=== PATIENT | female | born 1975 | race Caucasian/White ===

== ENCOUNTER 2016-06-24 23:26 | Emergency (ER) | payer MEDICAID ==
--- NOTE | 2016-06-25 00:06 | ERNOTE ---
<Wilder Bonner - Last Filed: 06/25/16 07:45> Psychological HPI - General Chief Complaint: Anxiety Source: patient Exam Limitations: no limitations - Immun/Allergies/Home Medications Allergies/Adverse Reactions: Allergies celecoxib [From Celebrex] Allergy (Intermediate, Verified 05/30/16 10:44) Hives ketorolac tromethamine [From Toradol] Allergy (Intermediate, Verified 05/30/16 10:44) Hives morphine Adverse Reaction (Intermediate, Verified 05/30/16 10:44) Itching Home Medications: HOME MEDICATIONS Gabapentin [Neurontin] 1,200 mg PO TID 03/22/14 [Last Taken 08/22/15 23:00] Ibuprofen [Motrin] 800 mg PO QID PRN 07/25/15 [Last Taken 01/24/16 19:00] Prazosin HCl 3 mg PO HS 01/03/16 [Last Taken Unknown] Duloxetine HCl [Cymbalta] 60 mg PO BID 04/10/16 [Last Taken Unknown] Amitriptyline HCl [Elavil] 25 mg PO HS 04/12/16 [Last Taken Unknown] QUEtiapine FUMARATE [Seroquel] 25 mg PO BID 06/24/16 [Last Taken Unknown] Quetiapine Fumarate [Seroquel] 50 mg PO HS 06/24/16 [Last Taken Unknown] oxyCODONE HCL [Oxycodone] 10 mg PO Q4H PRN 06/24/16 [Last Taken Unknown] Camano Carbonate [Camano Carbonate ER] 450 mg PO BID #14 tablet.er 06/25/16 [ Last Taken Unknown] Oxycodone HCl/Acetaminophen [Percocet 10-325 mg Tablet] 1 each PO BID #14 tablet 06/25/16 [Last Taken Unknown] Risperidone 2 mg PO DAILY #7 tablet 06/25/16 [Last Taken Unknown] - History of Present Illness Narrative: Pt has been feeling down for some time. She talked to her PCP and seroquel was added to her medications. She states this only made her more tired and less able to cope with the things in her life. Time Seen by Provider: 06/24/16 23:47 Arrived by: private car Onset/duration: gradual onset Intent: suicide - Pt states she has a number of different ways she has been thinking of that could end her life including using a gun and overdosing on medication, other - She states that the thought of dying brought her "pleasure and contentment" Review of Systems - Review of Systems Constitutional: Present: no symptoms reported EYE: Present: no symptoms reported ENT: Present: no symptoms reported Respiratory: Present: no symptoms reported Cardiology: Present: no symptoms reported Gastrointestinal/Abdominal: Present: no symptoms reported Genitourinary: Present: no symptoms reported Musculoskeletal: Present: back pain - chronic Skin: Present: no symptoms reported Neurological: Present: anxiety, depressed Endocrine: Present: no symptoms reported Hematologic/Lymphatic: Present: no symptoms reported Psych: Present: no symptoms reported - Patient's Past Medical History Patient History - Medical: Anxiety, Chronic Pain, Depression, Obesity, Other Patient History - Cardiac/Respiratory: Hypertension Patient History - Cancer: Breast Patient History - Surgical Procedures: Back Surgery, , D & C, Tubal Ligation, T & A - Family History Mother Family History - Medical: Diabetes Type 1 Family History - Cardiac/Respiratory: CVA/Stroke, Hypertension Father Family History - Medical: Diabetes Type 2 Family History - Cardiac/Respiratory: CVA/Stroke, Hypertension - Social History Living Situations: home Does anyone smoke in the home?: Yes Smoking Status: Current every day smoker Patient requests Smoking Cessation Consult: No Initiate information on Smoking Cessation: No Alcohol Use: rarely Drug Use: none Physical Exam - Physical Exam General Appearance: Present: wd/wn, alert, mild distress, crying - at times Eye Exam: Normal inspection: bilateral Ears, Nose, Throat: Present: normal ENT inspection, hearing grossly normal Neck: Present: normal inspection, nontender Respiratory: Present: no respiratory distress, normal breath sounds, no accessory muscle use, chest nontender, lungs clear Cardiovascular/Chest: Present: regular rate, rhythm, no murmur, normal peripheral pulses Gastrointestinal/Abdominal: Present: normal bowel sounds, nontender, nondistended, soft Back Exam: Present: no vertebral tenderness Extremity Exam: Present: normal inspection, non-tender, no edema, normal range of motion Neurological Exam: Present: alert, oriented, normal mood/affect, no motor/ sensory deficits Skin Exam: Present: normal color, warm/dry Lymphatic Exam: Present: no adenopathy ED Progress - Results and Orders Patient's Lab Results:: I have reviewed the patient's lab results. Results and Orders: Laboratory Tests 06/25/16 06/25/16 06/25/16 00:04 00:04 01:07 WBC 11.8 H Hgb 13.8 Hct 42.0 Plt Count 408 Sodium 139 Potassium 3.6 Chloride 100 Carbon Dioxide 23.9 L Anion Gap 18.7 H BUN 9 Creatinine 0.97 BUN/Creatinine Ratio 9.3 Random Glucose 96 Calcium 9.3 Total Bilirubin 0.4 AST 12 ALT 24 Alkaline Phosphatase 45 L Total Protein 7.9 Albumin 4.0 TSH 0.504 Urine Color Yellow Urine Appearance Clear Urine pH 8.5 Ur Specific [place] 1.010 Urine Protein 15 H Urine Glucose (UA) Negative Urine Ketones Negative Urine Blood Negative Urine Nitrate Negative Urine Bilirubin Negative Prot Sulfosalicylic Acd Negative Urine Urobilinogen Normal Ur Leukocyte Esterase Negative Urine RBC 0-5 Urine WBC 0-5 Ur Epithelial Cells 10-25 H Urine Bacteria None seen Urine Culture Comments No culture indicated Salicylates Less than 2.8 L Urine Opiates Screen Acetaminophen Less than 0.2 L Barbiturate Screen Ur Phencyclidine Scrn Urine Amphetamine U Benzodiazepines Scrn Urine Cocaine Screen Urine Marijuana (THC) Ethyl Alcohol Less than 3.0 06/25/16 01:07 WBC Hgb Hct Plt Count Sodium Potassium Chloride Carbon Dioxide Anion Gap BUN Creatinine BUN/Creatinine Ratio Random Glucose Calcium Total Bilirubin AST ALT Alkaline Phosphatase Total Protein Albumin TSH Urine Color Urine Appearance Urine pH Ur Specific [place] Urine Protein Urine Glucose (UA) Urine Ketones Urine Blood Urine Nitrate Urine Bilirubin Prot Sulfosalicylic Acd Urine Urobilinogen Ur Leukocyte Esterase Urine RBC Urine WBC Ur Epithelial Cells Urine Bacteria Urine Culture Comments Salicylates Urine Opiates Screen Negative Acetaminophen Barbiturate Screen Negative Ur Phencyclidine Scrn Negative Urine Amphetamine Negative U Benzodiazepines Scrn Negative Urine Cocaine Screen Negative Urine Marijuana (THC) Positive H Ethyl Alcohol - Vital Signs Patient's Vital Signs:: I have reviewed the patient's vital signs. Vital Signs: Vital Signs 06/24/16 23:34 Temperature 37.3 C Pulse Rate 112 H Respiratory 18 Rate Blood Pressure 158/113 O2 Sat by Pulse 98 Oximetry - Progress/Reassessment Chief Complaint: Anxiety Progress:: Unchanged Progress Note-Subjective: 06/25/16 02:29 told patient that Optimae was unavaliable and asked if she felt she needed inpatient treatment. she beleives she does. She asked if she could have her nightime medications, I agreed. gabapentin 1200mg, cymbalta 60 mg, ibuprofen 800 mg and percocet 5/325 06/25/16 07:[address] Daniel- Psychiatry and he agreed to evaluate the patient in the ED - Transfer of Care Physician Sign Out: Wilder Bonner Receiving Physician: Bob Mack Pending Results: Physician/consult arrival Expected Disposition: Discharge Departure Clinical Impression: Anxiety state, Suicidal ideation, Bipolar 1 disorder with moderate susanne, Borderline personality disorder, Chronic pain disorder Clinical Impression: (Ruled Out): Major depression - Departure Disposition: Home self-care Condition: Fair Instructions: Bipolar Disorder, Borderline Personality Disorder Referrals: [Primary Care Provider] - Prescriptions: Camano Carbonate [Camano Carbonate ER] 450 mg PO BID #14 tablet.er Oxycodone HCl/Acetaminophen [Percocet 10-325 mg Tablet] 1 each PO BID #14 tablet Risperidone 2 mg PO DAILY #7 tablet <Bob Mack - Last Filed: 06/25/16 13:25> ED Progress - Vital Signs Vital Signs: Vital Signs 06/25/16 06/25/16 07:12 11:59 Temperature 35.3 C L Pulse Rate 86 87 Respiratory 12 16 Rate Blood Pressure 168/96 140/82 O2 Sat by Pulse 98 98 Oximetry Plan - Plan Plan: Pt to stop her Seroquel, add Risperdone 2mg at supper and Camano Er 450 mg bid and Percocet 10mg bid, decrease Cymbalta ot 60 mg daily and stop the Amytriptyline. Pt was examined by Dr. Hernandez and all the above recommendations are at his behest. He feels comfortable with her going home and will see her as often as needed in his office.
[2016-06-25 00:29] LABS: Hemoglobin 13.8 gm/dL (12.5-16.0); Mean Cell Volume 93.8 fl (78-100); Mean Corpuscular Hemoglobin 30.8 pg (27-31); Mean Corpuscular Hgb Conc 32.9 g/dl (32-36); Mean Platelet Volume 10.4 fl (6.0-9.5); Neutrophil % 67.5 % (42-75.0); Platelet Count 408 K/mm3 (150-450); Red Blood Count 4.48 M/mm3 (4.2-5.4); Red Cell Distribution Width 14.4 % (11.5-14.0); White Blood Count 11.8 K/mm3 (4.0-10.5)
[2016-06-25 00:55] LABS: ALT 24 U/L (19-67); AST 12 U/L (0-48); Alkaline Phosphatase * 45 U/L (50-170); Anion Gap 18.7 mmol/L (6.8-13.8); BUN/Creatinine Ratio 9.3 (9.0-21.6); Bilirubin, Total 0.4 mg/dL (0.0-1.1); Blood Urea Nitrogen 9 mg/dL (3-23); Calcium * 9.3 mg/dL (7.9-10.9); Carbon Dioxide 23.9 mmol/L (24-32.6); Chloride 100 mmol/L (97-106); Glucose * 96 mg/dL (70-110); Potassium 3.6 mmol/L (3.4-4.6); Salicylate Less than 2.8 mg/dL (2.8-20.0); Sodium 139 mmol/L (132-142); TSH * 0.504 uIU/mL (0.358-3.74); Total Protein 7.9 gm/dL (6.2-8.2)
[2016-06-25 01:17] LABS: Urine Bilirubin Negative (NEGATIVE); Urine Blood Negative /ul (NEGATIVE); Urine Ketone Negative (NEGATIVE); Urine Nitrite Negative (NEGATIVE); Urine Protein 15 mg/dL (NEGATIVE); Urine Urobilinogen Normal (NORMAL); Urine pH 8.5 pH (5.0-7.0)
[2016-06-25 01:25] LABS: Cocaine Ur Negative (NEGATIVE); Urine Appearance Clear; Urine Bacteria None Seen; Urine Barbiturate Negative (NEGATIVE); Urine Benzodiazepines Negative (NEGATIVE); Urine Color Yellow; Urine Opiates Negative (NEGATIVE); Urine PCP Negative (NEGATIVE); Urine RBC 0-5 /hpf (0-5); Urine THC Positive (NEGATIVE); Urine WBC 0-5 /hpf (0-5)
[2016-06-25] MEDS ORDERED: GABAPENTIN 100 MG CAPSULE PO ONE (02:26)
[2016-06-25] MEDS ORDERED: IBUPROFEN 400 MG TABLET PO ONE (02:28)
[2016-06-25] MEDS ORDERED: IBUPROFEN 400 MG TABLET ONE (02:35)
[2016-06-25] MEDS ORDERED: GABAPENTIN 600 MG TABLET ONE (02:49)
[2016-06-25] MEDS ORDERED: oxyCODONE HCL/ACETAMINOPHEN 1 TAB TABLET PO ONE ×2 (03:03→13:38)
[2016-06-25] MEDS ORDERED: oxyCODONE HCL/ACETAMINOPHEN 1 TAB TABLET ONE ×2 (03:09→13:40)
[2016-06-25 12:00] VITALS: BP 140/82
== END 2016-06-25 13:42 | disposition home or self-care (01) ==
LOC: ER 23:26
DX: F41.1 Generalized anxiety disorder (principal); R45.851 Suicidal ideations; F31.9 Bipolar disorder, unspecified; F60.3 Borderline personality disorder; G89.4 Chronic pain syndrome; F17.210 Nicotine dependence, cigarettes, uncomplicated; Z85.3 Personal history of malignant neoplasm of breast
CPT/HCPCS: 36415; 80053; 81001; 84443; 85025; 99283; G0479; G0480; G0481

== ENCOUNTER 2016-07-23 15:31 | Emergency (ER) | payer MEDICAID ==
--- OUTSIDE RECORDS SUMMARY | 2016-07-23 15:50 | XMS REPORT | Continuity of Care Document ---
:1975 Author Organization [facility] ([facility]) Address [address] [place] [address] Phone [phone] Care Team Providers Name Role Phone Silvano Lemus Primary Care Provider [phone] Source Comments This disclosure is being made pursuant to the Care Everywhere program, applicable federal and state laws, and may not contain all informaitonavailable regarding this patient.[facility] ([facility]) Active Allergies and Adverse Reactions Allergen Noted Date Severity Reactions Comments Celecoxib 08/27/2012 Rash Ketorolac Tromethamine Urticaria (Hives) Current Medications Prescription Sig. Disp. Refills Start Date End Date Status DULoxetine 60 mg XR Take 60 mg by Active capsule mouth 2 times daily. traZODone 100 mg Take 100 mg by Active tablet mouth at bedtime. oxyCODONE 5 mg Take 1-2 tablets 20 tablet 0 06/01/2016 Active immediate release (5-10 mg total) by tablet mouth 4 times daily as needed for pain (if pain is not improved by Tylenol or Ibuprofen). gabapentin 400 mg Take 1,200 mg by Active capsule mouth 3 times daily. ibuprofen 800 mg Take 800 mg by Active tablet mouth every 8 hours as needed for Pain. Active Problems Problem Noted Date Urinary incontinence 06/01/2016 Narcotic habituation, continuous 02/06/2016 Overview: See [place] Prescription Medication Program for multiple narcotic and benzodiazepine prescriptions over last few months by multiple providers RLQ abdominal pain 02/05/2016 Back pain 05/02/2013 Morbid obesity with BMI of 40.0-44.9, adult 05/02/2013 Low back pain 08/22/2012 Lumbago 12/22/2007 Resolved Problems Problem Noted Date Resolved Date Intractable cyclical vomiting with nausea 02/05/2016 02/06/2016 Radiculopathy with lower extremity symptoms 01/11/2014 03/09/2014 Urinary retention with incomplete bladder emptying 01/11/2014 03/09/2014 [place]hese syndrome 01/11/2014 03/09/2014 Fall resulting in striking against other object 01/10/2014 03/09/2014 Finger numbness 01/09/2014 03/09/2014 Left arm weakness 01/08/2014 03/09/2014 Sciatica 05/02/2013 03/09/2014 Intractable back pain 05/02/2013 03/09/2014 Urinary retention with incomplete bladder emptying 05/02/2013 03/09/2014 Urinary incontinence 08/22/2012 03/09/2014 Right leg weakness 08/22/2012 03/09/2014 Incontinence without sensory awareness 12/22/2007 03/09/2014 Most Recent Encounters Date Type Specialty Providers Description 06/05/2016 Orders/Notes Neurosurgery Mendez Aleman, Dx: Urinary MD incontinence (Primary Dx) 06/02/2016 Nurse Triage Care Coordination Candie Nobles Chief Comp: KARIME Mccrary RNcity routeman Follow-up Call 06/01/2016 Pharmacy Visit 05/30/2016 - [facility] Polo Lewis Dx: Chronic midline 06/01/2016 Encounter Inpatient - Adult MD Chrissy low back pain Kati Pitts, without sciatica (Primary Dx) Isela Watson MD Kumar, Prerna, MD Immunizations Name Dates Previously Given Next Due Influenza, PF 08/25/2012 Pneumococcal, unspecified 08/24/2010 Social History Tobacco Use Types Packs/Day Years Used Date Current Every Day Smoker Cigarettes 1 22 Smokeless Tobacco: Never Used Tobacco Cessation:Ready to Quit: No Comments: Alcohol Use Drinks/Week oz/Week Comments Yes 0 Standard drinks or equivalent 0.0 occasional Last Filed Vital Signs Vital Sign Reading Time Taken Blood Pressure 155/101 06/01/2016 4:27 PM [employer]ER Pulse 93 06/01/2016 4:27 PM [employer] Temperature 36.3 C (97.3 F) 06/01/2016 4:27 PM [employer] Respiratory Rate 16 06/01/2016 4:27 PM [employer] Height 1.778 m (5' 10") 05/31/2016 3:30 AM [employer] Weight 140.7 kg (310 lb 3 oz) 05/31/2016 3:59 AM [employer] Body Mass Index 44.51 05/31/2016 3:59 AM [employer] Oxygen Saturation 98% 06/01/2016 4:27 PM [employer]ER Plan of Care Date Type Specialty Providers Description 07/28/2016 Appointment Neurosurgery Mendez Aleman MD Chief Comp: Patient [address] [place] [address] [phone] (Fax) Health Maintenance Due Date Last Done Comments Hepatitis B Vaccine (1 of 3 - Primary Series) 1975 Tdap Vaccine 1988 Lipid Disorder Screening 1995 MMR Vaccine 1995 Td Vaccine 1995 Pneumococcal Vaccine (1 of 1 - PPSV23) 1996 Cervical Cancer Screening 2007 05/10/2002 Influenza Vaccine: Seasonal (#1) 01/14/2016 08/25/2012 Results from Last [address] CERVICAL SPINE WO INCL T-3 (87630) (05/31/2016 2:19 PM) Impressions Impression: 1.Negative C-spine CT. 2.Negative limited upper thoracic spine CT. This final report is in agreement with the critical and emergentpreliminary findings reported by the finance vice president contact printer dry film. Narrative Procedure: CT CERVICAL SPINE WO INCL T-3 ([id number]) Indication: Fall. Rule out fractures. Technique: Axial CT of the cervical spine without IV contrast. Sagittal and coronal reformations are also provided for review. Comparison: None. Findings: The spine is visualized from the skull base through T3. There is loss of the normal cervical lordosis, otherwise alignment is grossly within normal limits. There is no evidence of acute fracture or dislocation. Craniovertebral junction relationships are well maintained.Vertebral body heights are within normal limits. There are no significant degenerative changes or spinal stenosis. Prevertebral soft tissues are unremarkable.Visualized upper thoracic spine and lung apices are clear.Grossly normal thyroid. Anterior spinal fusion hardware at C6-7 without complication. Procedure Note Ron, Incoming Imaging Results - Sat May 31, 2016 5:04 PM [employer]ER Procedure: CT CERVICAL SPINE WO INCL T-3 ([id number]) Indication: Fall. Rule out fractures. Technique: Axial CT of the cervical spine without IV contrast. Sagittal and coronal reformations are also provided for review. Comparison: None. Findings: The spine is visualized from the skull base through T3. There is loss of the normal cervical lordosis, otherwise alignment is grossly within normal limits. There is no evidence of acute fracture or dislocation. Craniovertebral junction relationships are well maintained. Vertebral body heights are within normal limits. There are no significant degenerative changes or spinal stenosis. Prevertebral soft tissues are unremarkable. Visualized upper thoracic spine and lung apices are clear. Grossly normal thyroid. Anterior spinal fusion hardware at C6-7 without complication. IMPRESSION Impression: 1. Negative C-spine CT. 2. Negative limited upper thoracic spine CT. This final report is in agreement with the critical and emergentpreliminary findings reported by the finance vice president contact printer dry film. L SPINE AP& LATERAL (05/31/2016 2:15 PM) Impressions Impression: No acute findings. Narrative Procedure: T SPINE AP & LATERAL, L SPINE AP & LATERAL Clinical Indication: Fall. Rule out fractures. Comparison: 02/22/2016 Findings: The spine is visualized from T1 through S1, although uppermost thoracic portions are obscured on the lateral view. As visualized, there is normal alignment without acute fracture or dislocation. Visualized lung hdz are clear. Mild superior endplate irregularity at L2 is stable. Procedure Note Ron, Incoming Imaging Results - [place] Jun 01, 2016 7:56 AM R[employer] GR[employer]ER Procedure: T SPINE AP & LATERAL, L SPINE AP & LATERAL Clinical Indication: Fall. Rule out fractures. Comparison: 02/22/2016 Findings: The spine is visualized from T1 through S1, although uppermost thoracic portions are obscured on the lateral view. As visualized, there is normal alignment without acute fracture or dislocation. Visualized lung hdz are clear. Mild superior endplate irregularity at L2 is stable. IMPRESSION Impression: No acute findings. T SPINE AP& LATERAL (05/31/2016 2:15 PM) Impressions Impression: No acute findings. Narrative Procedure: T SPINE AP & LATERAL, L SPINE AP & LATERAL Clinical Indication: Fall. Rule out fractures. Comparison: 02/22/2016 Findings: The spine is visualized from T1 through S1, although uppermost thoracic portions are obscured on the lateral view. As visualized, there is normal alignment without acute fracture or dislocation. Visualized lung hdz are clear. Mild superior endplate irregularity at L2 is stable. Procedure Note Ron, Incoming Imaging Results - [place] Jun 01, 2016 7:56 AM [employer]ER Procedure: T SPINE AP & LATERAL, L SPINE AP & LATERAL Clinical Indication: Fall. Rule out fractures. Comparison: 02/22/2016 Findings: The spine is visualized from T1 through S1, although uppermost thoracic portions are obscured on the lateral view. As visualized, there is normal alignment without acute fracture or dislocation. Visualized lung hdz are clear. Mild superior endplate irregularity at L2 is stable. IMPRESSION Impression: No acute findings. MRI SPINE CERVICAL WO CONTRAST ([id number]) (05/31/2016 1:56 PM) Impressions Impression: 1. Moderate to severe multilevel degenerative disc disease of the cervical and thoracic spine, most notably from T5 to T9 producing cord deformation but no cord signal abnormality. 2. No acute findings. This final report is in agreement with the critical and emergentpreliminary findings reported by the finance vice president contact printer dry film. Narrative Procedure: MRI SPINE THORACIC WO CONTRAST ([id number]), MRI SPINE CERVICAL WO CONTRAST ([id number]) Indication: fall, history of spine surgery, back pain, lower extremity numbness and weakness Technique: Multisequence, multiplanar MRI of the cervical spine and thoracic without IV contrast using a trauma protocol. Comparison: 02/22/2016, 02/12/2014 Findings: Cervical spine: There is grossly anatomic alignment. Postsurgical changes of C6-C7 ACDF. Vertebral body heights are within normal limits. Craniovertebral junction relationships are well-maintained. Moderate to severe central disc protrusion and canal narrowing at C5-C6. Normal cord signal. The longitudinal ligaments and ligamentum flavum are intact. The interspinous ligaments are within normal limits. No epidural collections. Prevertebral soft tissues are unremarkable. Normal marrow signal. Thoracic spine: There is grossly anatomic alignment. Vertebral body heights are within normal limits. Mild increased central disc extrusion at T4-T5 causing mild canal stenosis; additionally, there is left foraminal disc herniation causing moderate stenosis of the left neural foramen. Stable central disc extrusions at T5-T6, T7-T8, and T8-T9 with moderate to severe canal narrowing at these levels. Stable left paracentral disc protrusion at T11-T12. The disc disease does result in cord deformation at T11-T12 and T8-T9, and to a lesser extent T7-T8. No cord signal abnormality. The longitudinal ligaments and ligamentum flavum are intact. No epidural collections. Paravertebral soft tissues are unremarkable. Normal marrow signal. Procedure Note Ron, Incoming Imaging Results - Sat May 31, 2016 5:04 PM [employer]ER Procedure: MRI SPINE THORACIC WO CONTRAST ([id number]), MRI SPINE CERVICAL WO CONTRAST ([id number]) Indication: fall, history of spine surgery, back pain, lower extremity numbness and weakness Technique: Multisequence, multiplanar MRI of the cervical spine and thoracic without IV contrast using a trauma protocol. Comparison: 02/22/2016, 02/12/2014 Findings: Cervical spine: There is grossly anatomic alignment. Postsurgical changes of C6-C7 ACDF. Vertebral body heights are within normal limits. Craniovertebral junction relationships are well-maintained. Moderate to severe central disc protrusion and canal narrowing at C5-C6. Normal cord signal. The longitudinal ligaments and ligamentum flavum are intact. The interspinous ligaments are within normal limits. No epidural collections. Prevertebral soft tissues are unremarkable. Normal marrow signal. Thoracic spine: There is grossly anatomic alignment. Vertebral body heights are within normal limits. Mild increased central disc extrusion at T4-T5 causing mild canal stenosis; additionally, there is left foraminal disc herniation causing moderate stenosis of the left neural foramen. Stable central disc extrusions at T5-T6, T7-T8, and T8-T9 with moderate to severe canal narrowing at these levels. Stable left paracentral disc protrusion at T11-T12. The disc disease does result in cord deformation at T11-T12 and T8-T9, and to a lesser extent T7-T8. No cord signal abnormality. The longitudinal ligaments and ligamentum flavum are intact. No epidural collections. Paravertebral soft tissues are unremarkable. Normal marrow signal. IMPRESSION Impression: 1. Moderate to severe multilevel degenerative disc disease of the cervical and thoracic spine, most notably from T5 to T9 producing cord deformation but no cord signal abnormality. 2. No acute findings. This final report is in agreement with the critical and emergentpreliminary findings reported by the finance vice president contact printer dry film. MRI SPINE THORACIC WO CONTRAST ([id number]) (05/31/2016 1:55 PM) Impressions Impression: 1. Moderate to severe multilevel degenerative disc disease of the cervical and thoracic spine, most notably from T5 to T9 producing cord deformation but no cord signal abnormality. 2. No acute findings. This final report is in agreement with the critical and emergentpreliminary findings reported by the finance vice president contact printer dry film. Narrative Procedure: MRI SPINE THORACIC WO CONTRAST ([id number]), MRI SPINE CERVICAL WO CONTRAST ([id number]) Indication: fall, history of spine surgery, back pain, lower extremity numbness and weakness Technique: Multisequence, multiplanar MRI of the cervical spine and thoracic without IV contrast using a trauma protocol. Comparison: 02/22/2016, 02/12/2014 Findings: Cervical spine: There is grossly anatomic alignment. Postsurgical changes of C6-C7 ACDF. Vertebral body heights are within normal limits. Craniovertebral junction relationships are well-maintained. Moderate to severe central disc protrusion and canal narrowing at C5-C6. Normal cord signal. The longitudinal ligaments and ligamentum flavum are intact. The interspinous ligaments are within normal limits. No epidural collections. Prevertebral soft tissues are unremarkable. Normal marrow signal. Thoracic spine: There is grossly anatomic alignment. Vertebral body heights are within normal limits. Mild increased central disc extrusion at T4-T5 causing mild canal stenosis; additionally, there is left foraminal disc herniation causing moderate stenosis of the left neural foramen. Stable central disc extrusions at T5-T6, T7-T8, and T8-T9 with moderate to severe canal narrowing at these levels. Stable left paracentral disc protrusion at T11-T12. The disc disease does result in cord deformation at T11-T12 and T8-T9, and to a lesser extent T7-T8. No cord signal abnormality. The longitudinal ligaments and ligamentum flavum are intact. No epidural collections. Paravertebral soft tissues are unremarkable. Normal marrow signal. Procedure Note Ron, Incoming Imaging Results - Sat May 31, 2016 5:04 PM [employer]ER Procedure: MRI SPINE THORACIC WO CONTRAST ([id number]), MRI SPINE CERVICAL WO CONTRAST ([id number]) Indication: fall, history of spine surgery, back pain, lower extremity numbness and weakness Technique: Multisequence, multiplanar MRI of the cervical spine and thoracic without IV contrast using a trauma protocol. Comparison: 02/22/2016, 02/12/2014 Findings: Cervical spine: There is grossly anatomic alignment. Postsurgical changes of C6-C7 ACDF. Vertebral body heights are within normal limits. Craniovertebral junction relationships are well-maintained. Moderate to severe central disc protrusion and canal narrowing at C5-C6. Normal cord signal. The longitudinal ligaments and ligamentum flavum are intact. The interspinous ligaments are within normal limits. No epidural collections. Prevertebral soft tissues are unremarkable. Normal marrow signal. Thoracic spine: There is grossly anatomic alignment. Vertebral body heights are within normal limits. Mild increased central disc extrusion at T4-T5 causing mild canal stenosis; additionally, there is left foraminal disc herniation causing moderate stenosis of the left neural foramen. Stable central disc extrusions at T5-T6, T7-T8, and T8-T9 with moderate to severe canal narrowing at these levels. Stable left paracentral disc protrusion at T11-T12. The disc disease does result in cord deformation at T11-T12 and T8-T9, and to a lesser extent T7-T8. No cord signal abnormality. The longitudinal ligaments and ligamentum flavum are intact. No epidural collections. Paravertebral soft tissues are unremarkable. Normal marrow signal. IMPRESSION Impression: 1. Moderate to severe multilevel degenerative disc disease of the cervical and thoracic spine, most notably from T5 to T9 producing cord deformation but no cord signal abnormality. 2. No acute findings. This final report is in agreement with the critical and emergentpreliminary findings reported by the finance vice president contact printer dry film. MICROSCOPIC URINALYSIS (05/31/2016 12:14 PM) Component Value Range White Blood Cells, Urine <1 0-5 /HPF Red Blood Cells, Urine <1 0-2 /HPF Bacteria, Urine Many(A) /HPF Squamous Epithelial Cells, Urine 52(H) <=10 /LPF Specimen Urine URINALYSIS WITH REFLEX CULTURE (05/31/2016 12:14 PM) Component Value Range Color, Urine Yellow Straw, Pale Yellow, Yellow, Clear, None Clarity, Urine Clear Clear pH, Urine 6.0 <9.0 Spec [place], Urine 1.015 1.000-1.030 Glucose, Urine Negative Negative Blood, Urine Negative Negative Ketones, Urine Negative Negative Protein, Urine Negative Negative Urobilinogen, Urine Normal Normal Bilirubin, Urine Negative Negative Leukocyte Esterase, Urine Negative Negative Nitrite, Urine Negative Negative Specimen Urine URINALYSIS WITH REFLEXED CULTURE AND MICROSCOPIC EXAM (05/31/2016 12:14 PM) Specimen Culture - Urine, Indwelling cath Narrative The following orders were created for panel order URINALYSIS WITH REFLEXED CULTURE AND MICROSCOPIC EXAM. Procedure Abnormality Status --------- ------ URINALYSIS WITH REFLEX C...[[id number]]Normal Final result MICROSCOPIC URINALYSIS[[id number]] Abnormal Final result URINE CULTURE, REFLEXED[[id number]] Please view results for these tests on the individual orders. DIFFERENTIAL (05/31/2016 7:56 AM)Only the most recent of2 resultswithin the time period is included. Component Value Range % Neutrophils-Auto Diff 77.2 % Neutrophils-Auto Diff 6460 3033-1220 /MM3 % Lymphocytes-Auto Diff 14.5 % Lymphocytes-Auto Diff 9949 623-6584 /MM3 % Monocytes-Auto Diff 5.1 % Monocytes-Auto Diff 430 130-860 /MM3 % Eosinophils-Auto Diff 1.9 % Eosinophils-Auto Diff 160 40-390 /MM3 % Basophils 0.7 % Basophils-Auto Diff 60 10-136 /MM3 % Immature Granulocytes-Auto Diff 0.6 % Immature Granulocytes-Auto Diff 50 /MM3 Specimen Whole Blood CBC (COMPLETE BLOOD COUNT) (05/31/2016 7:56 AM)Only the most recent of2 resultswithin the time period is included. Component Value Range WBC Count 8.4 3.7-10.5 K/MM3 RBC Count 3.82(L) 4.00-5.20 M/MM3 Hemoglobin 11.4(L) 11.9-15.5 g/dL Hematocrit 35 35-47 % MCV (Mean Corpuscular Volume) 93 82-99 FL MCH (Mean Corpuscular Hemoglobin) 30 25-35 PG MCHC (Mean Corpuscular Hemoglobin Concentration) 32 32-36 % Platelet Count 281 150-400 K/MM3 MPV (Mean Platelet Volume) 10.9 9.4-12.3 FL RBC Dist Width-STD 46.5(H) 36.4-46.3 FL RBC Distrib Width 13.6 9.0-14.5 % Nucleated RBC 0 /100 WBC Specimen Whole Blood CHEM 7 PANEL (05/31/2016 7:56 AM) Component Value Range Sodium 137 135-145 mEq/L Chloride 100 95-107 mEq/L Potassium 3.8 3.5-5.0 mEq/L CO2 24 22-29 mEq/L BUN 13 10-20 mg/dL Creatinine 0.7Comment: 0.5-1.0 mg/dL Creatinine switched to enzymatic method on 10/22/2010.GFR equation switched to IDMS-traceable MDRD equation on 10/22/2010. Calculated GFR values are not valid in clinical settings where serum creatinine is changing. Glucose 103(H)Comment: 65-99 mg/dL The Expert Committee on the Diagnosis and Classification of Diabetes has defined impaired fasting glucose as greater than or equal to 100 mg/dL but less than 126 mg/dL.(Diabetes Care 28 (Suppl 1)S41,2005) Anion Gap 13 8-18 mEq/L Calculated GFR >90 >60 mL/min/1.73 m2 Specimen Blood CBC WITH DIFFERENTIAL (05/31/2016 7:56 AM)Only the most recent of2 resultswithin the time period is included. Specimen Whole Blood Narrative The following orders were created for panel order CBC WITH DIFFERENTIAL. Procedure Abnormality Status --------- ------ CBC (COMPLETE BLOOD COUNT)[[id number]] AbnormalFinal result DIFFERENTIAL[[id number]] Final result Please view results for these tests on the individual orders. MRI SPINE LUMBAR W/WO CONTRAST ([id number]) (05/30/2016 10:57 PM) Impressions IMPRESSION: 1. Degenerative and postsurgical changes in the visualized lumbar spine, overall stable since prior. There is mild to moderate narrowing of the spinal canal at L3-L4 level as before. This final report is in agreement with the critical and emergentpreliminary findings reported by the finance vice president contact printer dry film. Narrative Procedure:MRI SPINE LUMBAR W/WO CONTRAST ([id number]) INDICATION: Low back pain with right foot weakness and numbness in L5, S1 dermatomes with bowel and bladder incontinence. Please evaluate for cauda equina, nerve root compression. TECHNIQUE:Multiplanar multisequence MRI of the lumbar spine was performed before and after administration of 14 cc of Gadavist contrast. COMPARISON: Prior study dated 10/27/2014 FINDINGS: The last unfused vertebra is designated as L5. The study extends from T11-T12 level till S4 level. The conus terminates at T12-L1 level. Postsurgical changes of prior laminectomy in the lumbar spine are noted between L3 and L5 as before. Following were also noted: At the T11/T12 level, there is a stable small left paracentral disc protrusion without any significant narrowing of the spinal canal or exiting foramina At the T12/L1 level, there is no significant spinal canal stenosis or neuroforaminal narrowing. At the L1/L2 level, there is no significant spinal canal stenosis or neuroforaminal narrowing. At the L2/L3 level, there is disc desiccation with partial loss of disc height. Mild diffuse disc bulge as before, without significant narrowing of the spinal canal. There is mild to moderate narrowing of bilateral exiting foramina, slightly more prominent on the left side. Modic Type II endplate changes are noted. At the L3/L4 level, there is again disc desiccation with partial loss of disc height. Central disc extrusion as before along with prominent postsurgical soft tissue posteriorly, resulting in mild to moderate narrowing of the spinal canal. There is moderate to severe narrowing of bilateral exiting foramina, worse on the right side as before. At the L4/L5 level, there is again disc desiccation with partial loss of disc height. Central disc extrusion is noted without significant narrowing of the spinal canal. There is moderate narrowing of bilateral exiting foramina.. At the L5/S1 level, there is disc desiccation without significant loss of disc height. No significant narrowing of the spinal canal or exiting foramina is seen. Prominent degenerative changes along the facet joints in the lower lumbar spine are noted. There are postsurgical changes in the midline low back. No abnormal parenchymal or leptomeningeal enhancement is seen.. Likely postsurgical changes involving the anterior uterine wall. Procedure Note Ron, Incoming Imaging Results - Sat May 31, 2016 9:34 AM ROUGH [employer] GRADER Procedure:MRI SPINE LUMBAR W/WO CONTRAST ([id number]) INDICATION: Low back pain with right foot weakness and numbness in L5, S1 dermatomes with bowel and bladder incontinence. Please evaluate for cauda equina, nerve root compression. TECHNIQUE: Multiplanar multisequence MRI of the lumbar spine was performed before and after administration of 14 cc of Gadavist contrast. COMPARISON: Prior study dated 10/27/2014 FINDINGS: The last unfused vertebra is designated as L5. The study extends from T11-T12 level till S4 level. The conus terminates at T12-L1 level. Postsurgical changes of prior laminectomy in the lumbar spine are noted between L3 and L5 as before. Following were also noted: At the T11/T12 level, there is a stable small left paracentral disc protrusion without any significant narrowing of the spinal canal or exiting foramina At the T12/L1 level, there is no significant spinal canal stenosis or neuroforaminal narrowing. At the L1/L2 level, there is no significant spinal canal stenosis or neuroforaminal narrowing. At the L2/L3 level, there is disc desiccation with partial loss of disc height. Mild diffuse disc bulge as before, without significant narrowing of the spinal canal. There is mild to moderate narrowing of bilateral exiting foramina, slightly more prominent on the left side. Modic Type II endplate changes are noted. At the L3/L4 level, there is again disc desiccation with partial loss of disc height. Central disc extrusion as before along with prominent postsurgical soft tissue posteriorly, resulting in mild to moderate narrowing of the spinal canal. There is moderate to severe narrowing of bilateral exiting foramina, worse on the right side as before. At the L4/L5 level, there is again disc desiccation with partial loss of disc height. Central disc extrusion is noted without significant narrowing of the spinal canal. There is moderate narrowing of bilateral exiting foramina.. At the L5/S1 level, there is disc desiccation without significant loss of disc height. No significant narrowing of the spinal canal or exiting foramina is seen. Prominent degenerative changes along the facet joints in the lower lumbar spine are noted. There are postsurgical changes in the midline low back. No abnormal parenchymal or leptomeningeal enhancement is seen.. Likely postsurgical changes involving the anterior uterine wall. IMPRESSION IMPRESSION: 1. Degenerative and postsurgical changes in the visualized lumbar spine, overall stable since prior. There is mild to moderate narrowing of the spinal canal at L3-L4 level as before. This final report is in agreement with the critical and emergentpreliminary findings reported by the finance vice president contact printer dry film. ANTIBODY PANEL INTERPRETATION (05/30/2016 8:39 PM) Component Value Range Antibody Identification Negative Specimen Blood PTT (PARTIAL THROMBOPLASTIN TIME) (05/30/2016 8:39 PM) Component Value Range PTT 23 22-31 secs Specimen Blood C-REACTIVE PROTEIN (05/30/2016 8:39 PM) Component Value Range CRP (C-Reactive Protein) 2.7(H) <=0.5 mg/dL Specimen Blood ERYTHROCYTE SEDIMENTATION RATE (05/30/2016 8:39 PM) Component Value Range ESR (Erythrocyte Sedimentation Rate) 2 0-20 mm/Hr Specimen Whole Blood TYPE AND SCREEN (BLOOD TYPE(ABORH) AND RBC ANTIBODY SCREEN) (05/30/2016 8:39 PM ) Component Value Range ABORH A Positive Specimen Expiration Date 2016-06-02 Antibody Screen Positive Specimen Blood LACTIC ACID, WHOLE BLOOD ([facility]) (05/30/2016 8:39 PM) Component Value Range Lactic Acid, Whole Blood 0.7Comment: 0.5-2.0 mEq/L Glycolate, the principle toxic metabolite of ethylene glycol, can cause artifactual elevation of measured lactate. Specimen Blood PT/INR (PROTHROMBIN TIME/INR) VENOUS (05/30/2016 8:39 PM) Component Value Range PT (Prothrombin Time) 10 9-12 secs INR 0.9 <4.0 Specimen Blood BASIC METABOLIC PANEL W/ CALCIUM (CHEM 8) (05/30/2016 8:39 PM) Component Value Range Sodium 145 135-145 mEq/L Potassium 3.8 3.5-5.0 mEq/L Chloride 105 95-107 mEq/L CO2 25 22-29 mEq/L Anion Gap 15 8-18 mEq/L BUN 11 10-20 mg/dL Creatinine 0.8Comment: 0.5-1.0 mg/dL Creatinine switched to enzymatic method on 10/22/2010.GFR equation switched to IDMS-traceable MDRD equation on 10/22/2010. Calculated GFR values are not valid in clinical settings where serum creatinine is changing. Glucose 89Comment: 65-99 mg/dL The Expert Committee on the Diagnosis and Classification of Diabetes has defined impaired fasting glucose as greater than or equal to 100 mg/dL but less than 126 mg/dL.(Diabetes Care 28 (Suppl 1)S41,2005) Calcium 8.7 8.5-10.5 mg/dL Calculated GFR 80 >60 mL/min/1.73 m2 Specimen Blood
--- OUTSIDE RECORDS SUMMARY | 2016-07-23 15:50 | XMS REPORT | Summary of Care ---
:1975 Author Organization [facility] Care Team Providers Name Role Phone No Family Phy, Physician Primary Care Physician Unavailable Encounter 08/26/15 - 08/31/15 [facility] [address] [facility] Anai Chandra, [place] [address]- Discharge Disposition: Home Attending Physician: Jay Do Admitting Physician: Rosalio WERNER, Gus Arrieta Referring Physician: Self, Referral Vital Signs Most recent to oldest 1 2 3 [Reference Range]: Orientation Oriented to Person, Place, Time Oriented to Person, Place, Time (08/27/15 8:25 AM) (08/26/15 8:07 PM) Sleep Quality Sleeping quielty with easy respirations Sleeping quielty with easy respirations Sleeping quielty with easy respirations (08/31/15 1:48 AM) (08/30/15 6:26 AM) (08/29/15 10:38 PM) Sleep, Number of Hrs 8 6 8 (08/30/15 6:26 AM) (08/29/15 6:38 AM) (08/27/15 2:02 AM) Sleep Comment continues to report poor sleep some difficulty initiating sleep reports she did not sleep well last noc et will discuss this with NIKKI (08/29/15 1:30 PM) (08/29/15 6:38 AM) (08/28/15 10:47 AM) Respiratory Rate 20 brpm 18 brpm 18 brpm [12-30 brpm] (08/31/15 12:10 PM) (08/31/15 9:44 AM) (08/30/15 11:00 PM) Blood Pressure 130/88mm hg 122/82mm hg 121/85mm hg [(reference range (08/31/15 12:10 PM) (08/31/15 9:44 AM) (08/30/15 11:00 PM) unavailable)/61-99 mm hg] Temperature F 99.0 degF 98.2 degF 97.4 degF [97.7-99.9 degF] (08/31/15 12:10 PM) (08/30/15 11:00 PM) *LOW* (08/29/15 5:30 PM) Height 170.2 cm (08/26/15 8:07 PM) Weight 129.091 kg (08/26/15 8:07 PM) Problem List Condition Effective Dates Status Health Status Informant Morbid obesity(Probable Diagnosis)1 Active Smoker(Confirmed)2 Active 1Problem added as a result of a BMI>=402Problem added as a result of documented Tobacco Use. Allergies, Adverse Reactions, Alerts Substance Reaction Severity Status CeleBREX Active Toradol Moderate Active Medications acetaminophen-oxycodone (325-7.5) 1 Tab, PO, QID (Four Times Daily) Start Date: 04/03/14 Stop Date: 08/26/15 Status: Discontinuedamitriptyline 25 mg, PO, HS (At Bedtime) Start Date: 08/26/15 Stop Date: 08/31/15 Status: Discontinuedamitriptyline 50 mg oral tablet 50 mg=1 Tab, PO, HS (At Bedtime), X 30 day(s), # 30 Tab, Pharmacy: [place], [place] Start Date: 08/31/15 Stop Date: 09/30/15 Status: Orderedbaclofen 10 mg oral tablet 10 mg=1 Tab, PO, TID (Three Times Daily) Start Date: 04/03/14 Stop Date: 08/26/15 Status: Discontinuedbaclofen 10 mg oral tablet 10 mg=1 Tab, PO, TID (Three Times Daily) Start Date: 03/29/14 Stop Date: 04/03/14 Status: Discontinuedgabapentin 300 mg oral capsule 900 mg=3 Cap, PO, TID (Three Times Daily) Start Date: 04/03/14 Stop Date: 08/26/15 Status: Discontinuedgabapentin 300 mg oral capsule 900 mg=3 Cap, PO, TID (Three Times Daily) Start Date: 03/29/14 Stop Date: 04/03/14 Status: Discontinuedibuprofen 800 mg oral tablet 800 mg=1 Tab, PO, TID (Three Times Daily) Start Date: 04/03/14 Status: Orderedibuprofen 800 mg oral tablet 800 mg=1 Tab, PO, TID (Three Times Daily) Start Date: 03/29/14 Stop Date: 04/03/14 Status: DiscontinuedNeurontin 1200, PO, TID (Three Times Daily) Start Date: 08/26/15 Stop Date: 08/31/15 Status: DiscontinuedNeurontin 600 mg oral tablet 2 Tabs, PO, TID (Three Times Daily), X 30 day(s), # 180 Tab, Pharmacy: [place], [place] Start Date: 08/31/15 Stop Date: 09/30/15 Status: OrderedoxyCODONE 5 mg oral tablet 5 mg=1 Tab, PO, [id number] Start Date: 08/26/15 Stop Date: 08/31/15 Status: DiscontinuedPercocet 5/325 oral tablet 1 Tab, PO, QID (Four Times Daily) Start Date: 03/29/14 Stop Date: 04/03/14 Status: Discontinuedprazosin 3 mg, PO, HS (At Bedtime) Start Date: 08/26/15 Status: OrderedPriLOSEC 20 mg oral delayed release capsule 20 mg=1 Cap(s), PO, Daily (Once Daily), # 30 Cap Start Date: 03/30/14 Stop Date: 08/26/15 Status: Discontinuedquetiapine 100 mg oral tablet 250 mg=2.5 Tab, PO, HS (At Bedtime), X 30 day(s), # 75 Tab, Pharmacy: [place], [place] Start Date: 08/31/15 Stop Date: 09/30/15 Status: OrderedSeroquel 25 mg, PO, BID (Twice Daily) Start Date: 08/26/15 Stop Date: 08/31/15 Status: DiscontinuedSeroquel 200 mg, PO, HS (At Bedtime) Start Date: 08/26/15 Stop Date: 08/31/15 Status: DiscontinuedSeroquel 25 mg oral tablet 25 mg, PO, BID (Twice Daily), X 30 day(s), # 60 Tab, Pharmacy: [place], [place] Start Date: 08/31/15 Stop Date: 09/30/15 Status: Orderedsertraline 100 mg oral tablet 100 mg=1 Tab, PO, Daily (Once Daily) Start Date: 04/03/14 Stop Date: 08/26/15 Status: DiscontinuedTylenol Extra Strength 500 mg oral tablet 1,000 mg=2 Tab, PO, Daily (Once Daily) Start Date: 03/29/14 Stop Date: 04/03/14 Status: DiscontinuedZoloft 50 mg oral tablet 50 mg=1 Tab, PO, Daily (Once Daily) Start Date: 03/29/14 Stop Date: 04/03/14 Status: Discontinued Results No data available for this section Immunizations No data available for this section Procedures No data available for this section Social History Social History Type Response Alcohol Current, 1-2 times per year, Wine, Previous treatment: None. Alcohol use interferes with work or home: No. Drinks more than intended: No. Others hurt by drinking: No. Ready to change: No. Household alcohol concerns: No.1 Substance Abuse Past, Prescription medications, Treatment center, Smoking Status Current every day smoker; Type: Cigarettes; Tobacco use per day : 20; Started at age: 25.0; Previous treatment: None; Ready to change: No; Concerns about tobacco use in household: No3 [id number] was in treatment in [place] because I wanted to get off prescription pain meds.3none Assessment and Plan No data available for this section
--- OUTSIDE RECORDS SUMMARY | 2016-07-23 15:51 | XMS REPORT | Summary of Care ---
:1975 Author Organization [facility] Address [facility] [place] [address]- Care Team Providers Name Role Phone Silvano Lemus Primary Care Physician Encounter Date(s): 11/16/15 - 11/16/[address] [address] Final: Encounter for preprocedural respiratory examination Final: Encounter for preprocedural laboratory examination Discharge Disposition: Discharged to Home or Self Care Attending Physician: José Lockhart MD Admitting Physician: José Lockhart MD Vital Signs No data available for this section Problem List Condition Effective Dates Status Health Status Informant Anxiety(Confirmed) Active patient Back pain with sciatica(Confirmed) Active Depression(Confirmed) Active patient Pain in neck(Confirmed) Active Allergies, Adverse Reactions, Alerts Substance Reaction Severity Status CeleBREX Hives Severe Active nabumetone Rash Severe Active naproxen Active Toradol Hives Severe Active Medications Atarax 25 mg oral tablet 1 tab(s), Oral, QID, PRN as needed for anxiety, # 40 tab(s), 0 Refill(s), Start Date: 11/26/15 16:19:00 CDT Start Date: 11/26/15 Status: OrderedBiofreeze 0.2%-3.5% topical gel 1 delvin, Topical, TID, PRN pain mild 1-3, # 15 gm, 0 Refill(s), Start Date: 9:05:00 [employer], Pharmacy: [id number] Start Date: 05/20/14 Stop Date: 05/29/14 Status: Completeddiazepam 5 mg oral tablet 1 tab(s), Oral, QID, PRN for anxiety, # 20 tab(s), 0 Refill(s), Start Date: 18:32:00 CDT Start Date: 11/03/15 Stop Date: 11/26/15 Status: CompletedEffexor XR 150 mg oral capsule, extended release 1 cap(s), Oral, qAM, # 30 cap(s), 1 Refill(s), Start Date: 05/20/14 9:07:00 [employer] , Pharmacy: [facility] Start Date: 05/20/14 Stop Date: 11/09/15 Status: Completedfentanyl patch removal 0 Refill(s), Start Date: 09/25/15 13:08:00 CDT Start Date: 09/25/15 Stop Date: 11/09/15 Status: Completedgabapentin 400 mg oral capsule 3 cap(s), Oral, TID, # 120 cap(s), 0 Refill(s), Start Date: 05/10/14 5:23:00 [employer] Start Date: 05/10/14 Stop Date: 05/20/14 Status: Discontinuedgabapentin 600 mg oral tablet 2 tab(s), Oral, TID, # 180 tab(s), 1 Refill(s), Start Date: 05/20/14 9:02:00 [employer] , [facility] Start Date: 05/20/14 Status: OrderedHYDROcodone-acetaminophen 5 mg-325 mg oral tablet 2 tab(s), Oral, q6hr, X 3 days, # 15 tab(s), 0 Refill(s), Start Date: 10/09/15 19:44:00 CDT Start Date: 10/09/15 Stop Date: 10/12/15 Status: CompletedHYDROcodone-acetaminophen 5 mg-325 mg oral tablet 1 tab(s), Oral, q4hr, PRN for pain, 0 Refill(s), Start Date: 04/18/15 10:57:00 [employer] Start Date: 04/18/15 Stop Date: 11/09/15 Status: CompletedHYDROcodone-acetaminophen 5 mg-325 mg oral tablet 1 tab(s), Oral, q4hr, PRN for pain, # 60 tab(s), 0 Refill(s), Start Date: 13:06:00 CDT Start Date: 11/21/15 Stop Date: 12/05/15 Status: OrderedhydrOXYzine hydrochloride 50 mg oral tablet 1 tab(s), Oral, q6hr, PRN anxiety, # 120 tab(s), 0 Refill(s), Start Date: 9:06:00 [employer], Pharmacy: [place] [id number] Start Date: 05/20/14 Stop Date: 11/09/15 Status: Completedibuprofen 800 mg oral tablet 1 tab(s), Oral, TID, # 90 tab(s), 0 Refill(s), Start Date: 05/10/14 5:24:00 [employer] Start Date: 05/10/14 Status: OrderedLexapro 20 mg oral tablet 1 tab(s), Oral, Daily, # 30 tab(s), 0 Refill(s), Start Date: 11/09/15 14:36:00 CDT Start Date: 11/09/15 Status: OrderedMedrol Dosepak 4 mg oral tablet 1 packet(s), Oral, Per Package Label, as directed on package labeling, # 21 tab( s), 0 Refill(s), Start Date: 11/26/15 18:37:00 CDT Special Instructions: as directed on package labeling Start Date: 11/26/15 Stop Date: 12/02/15 Status: Orderedmethadone 5 mg oral tablet 1 tab(s), Oral, BID, PRN for pain, 0 Refill(s), Start Date: 11/26/15 16:20:00 CDT Start Date: 11/26/15 Status: Orderedmethadone 5 mg oral tablet 1 tab(s), Oral, TID, PRN for pain, # 30 tab(s), 0 Refill(s), Start Date: 9:03:00 [employer], Pharmacy: [facility] Start Date: 05/20/14 Stop Date: 11/21/15 Status: Discontinuedmethadone 5 mg oral tablet 1 tab(s), Oral, TID, PRN for pain, 0 Refill(s), Start Date: 05/10/14 5:25:00 [employer] Start Date: 05/10/14 Stop Date: 05/20/14 Status: DiscontinuedNaprosyn 500 mg oral tablet 1 tab(s), Oral, BID, # 20 tab(s), 0 Refill(s), Start Date: 11/03/15 18:32:00 CDT Start Date: 11/03/15 Stop Date: 11/03/15 Status: DiscontinuedNorco 5 mg-325 mg oral tablet 2 tab(s), Oral, q6hr interval, X 3 days, # 12 tab(s), 0 Refill(s), Start Date: 11/03/15 18:32:00 CDT Start Date: 11/03/15 Stop Date: 11/06/15 Status: Completednortriptyline 10 mg oral capsule 2 cap(s), Oral, HS, # 90 cap(s), 0 Refill(s), Start Date: 05/10/14 5:26:00 [employer] Start Date: 05/10/14 Stop Date: 05/20/14 Status: Discontinuedomeprazole 20 mg, Oral, Daily, 0 Refill(s), Start Date: 05/10/14 5:26:00 [employer] Start Date: 05/10/14 Stop Date: 05/20/14 Status: Discontinuedomeprazole 20 mg oral delayed release capsule 1 cap(s), Oral, Daily, # 30 cap(s), 0 Refill(s), Start Date: 05/20/14 9:04:00 [employer], Pharmacy: [facility] Start Date: 05/20/14 Stop Date: 11/09/15 Status: Completedprazosin 1 mg oral capsule 1 cap(s), Oral, TID, 0 Refill(s), Start Date: 11/26/15 16:19:00 CDT Start Date: 11/26/15 Status: OrderedpredniSONE 20 mg oral tablet 3 tab(s), Oral, Daily, stop taking after 05/22/14, # 9 tab(s), 0 Refill(s), Start Date: 05/20/14 9:06:00 [employer], Pharmacy: [facility] Special Instructions: stop taking after 05/22/14 Start Date: 05/20/14 Stop Date: 11/09/15 Status: CompletedpredniSONE 50 mg oral tablet 1 tab(s), Oral, Daily, X 5 days, # 5 tab(s), 0 Refill(s), Start Date: 10/09/15 19:45:00 CDT Start Date: 10/09/15 Stop Date: 10/14/15 Status: CompletedQUEtiapine 50 mg oral tablet 1 tab(s), Oral, TID, PRN anxiety, # 90 tab(s), 1 Refill(s), Start Date: 9:04:00 [employer], Pharmacy: [place] [id number] Start Date: 05/20/14 Status: OrderedQUEtiapine 50 mg oral tablet 1 tab(s), Oral, TID, PRN anxiety, 0 Refill(s), Start Date: 05/10/14 5:28:00 [employer] Start Date: 05/10/14 Stop Date: 05/20/14 Status: Discontinuedsertraline 50 mg oral tablet 3 tab(s), Oral, Daily, 0 Refill(s), Start Date: 05/10/14 5:30:00 [employer] Start Date: 05/10/14 Stop Date: 05/20/14 Status: DiscontinuedtraZODone 150 mg oral tablet 1 tab(s), Oral, HS, PRN insomnia, # 30 tab(s), 1 Refill(s), Start Date: 9:07:00 [employer], Pharmacy: [facility] Start Date: 05/20/14 Stop Date: 11/09/15 Status: CompletedWellbutrin XL 150 mg/24 hours oral tablet, extended release 1 tab(s), Oral, qAM, # 30 tab(s), 1 Refill(s), Start Date: 05/20/14 9:05:00 [employer] , Pharmacy: [place] [id number] Start Date: 05/20/14 Stop Date: 11/09/15 Status: Completedzaleplon 5 mg oral capsule 1 cap(s), Oral, HS, PRN for sleep, 0 Refill(s), Start Date: 11/26/15 16:19:00 CDT Start Date: 11/26/15 Status: Ordered Results Patient Viewable Results Most recent to oldest [Reference Range]: 1 WBC [4.8-10.8 thou/mm3] 7.1 thou/mm3 (11/16/15 9:38 AM) RBC [4.20-5.40 Mil/mm3] 4.15 Mil/mm3 *LOW* (11/16/15 9:38 AM) Hgb [12.0-16.0 g/dL] 12.9 g/dL (11/16/15 9:38 AM) Hct [37.0-47.0 %] 39.9 % (11/16/15 9:38 AM) MCV [80.0-94.0 fL] 96.1 fL *HI* (11/16/15 9:38 AM) MCH [25.0-38.0 pg/cell] 31.1 pg/cell (11/16/15 9:38 AM) MCHC [31.0-37.0 g/dL] 32.3 g/dL (11/16/15 9:38 AM) RDW [1.0-48.0 fL] 50.2 fL *HI* (11/16/15 9:38 AM) Platelet [130-400 thou/mm3] 333 thou/mm3 (11/16/15 9:38 AM) Neutrophils % Auto [50.0-75.0 %] 60.6 % (11/16/15 9:38 AM) Immature Granulocyte Auto [0.1-2.0 %] 0.3 % (11/16/15 9:38 AM) Lymphocytes % Auto [15.0-41.0 %] 31.1 % (11/16/15 9:38 AM) Monocytes % Auto [2.0-10.0 %] 5.6 % (11/16/15 9:38 AM) Eosinophils % Auto [0.0-6.0 %] 1.8 % (11/16/15 9:38 AM) Basophil % Auto [0.0-1.0 %] 0.6 % (11/16/15 9:38 AM) Neutrophils Absolute [1.5-5.9 thou/mm3] 4.3 thou/mm3 (11/16/15 9:38 AM) Immature Gran Absolute [0.01-0.03 thou/mm3] 0.02 thou/mm3 (11/16/15 9:38 AM) Lymphocytes Absolute [1.5-4.0 thou/mm3] 2.2 thou/mm3 (11/16/15 9:38 AM) Monocytes Absolute [0.0-0.9 thou/mm3] 0.4 thou/mm3 (11/16/15 9:38 AM) Eosinophil Absolute [0.0-0.7 thou/mm3] 0.1 thou/mm3 (11/16/15 9:38 AM) Basophil Absolute [0.0-0.2 thou/mm3] 0.0 thou/mm3 (11/16/15 9:38 AM) Sodium Lvl [135-144 mEq/L] 140 mEq/L (11/16/15 9:38 AM) Potassium Lvl [3.3-4.8 mEq/L] 3.9 mEq/L (11/16/15 9:38 AM) Chloride Lvl [98-107 mEq/L] 102 mEq/L (11/16/15 9:38 AM) Bicarbonate Lvl [22-30 mmol/L] 25 mmol/L (11/16/15 9:38 AM) Anion Gap [10.0-20.0] 16.9 (11/16/15 9:38 AM) Glucose Lvl [70-108 mg/dL] 107 mg/dL (11/16/15 9:38 AM) BUN [7-21 mg/dL] 11 mg/dL (11/16/15 9:38 AM) Creatinine Lvl [0.50-1.20 mg/dL] 0.70 mg/dL (11/16/15 9:38 AM) BUN/Creat Ratio 15.7 *NA* (11/16/15 9:38 AM) eGFR AA [>=60] >60 (11/16/15 9:38 AM) eGFR SHASHANK [>=60] >60 (11/16/15 9:38 AM) Calcium Lvl [8.6-10.2 mg/dL] 8.9 mg/dL (11/16/15 9:38 AM) Total Protein [6.4-8.3 g/dL] 6.9 g/dL (11/16/15 9:38 AM) Albumin Lvl [3.5-5.2 g/dL] 3.8 g/dL (11/16/15 9:38 AM) Globulin 3.1 *NA* (11/16/15 9:38 AM) A/G Ratio [0.9-1.8] 1.2 (11/16/15 9:38 AM) Bilirubin Total [0.1-1.0 mg/dL] 0.2 mg/dL (11/16/15 9:38 AM) Alkaline Phosphatase [39-129 unit/L] 39 unit/L (11/16/15 9:38 AM) AST [0-39 unit/L] 17 unit/L (11/16/15 9:38 AM) ALT [0-40 unit/L] 21 unit/L (11/16/15 9:38 AM) Estimated Creatinine Clearance 157.68 mL/min (11/16/15 10:15 AM) Microbiology Reports TEST:MRSA Screen STATUS:Auth (Verified) BODY SITE: SOURCE:Nares COLLECTED DATE/TIME:11/16/15 9:38 AMFINAL REPORTNegative for MRSA by PCR Immunizations Vaccine Date Refusal Reason influenza virus vaccine, live1 03/15/14 1Result Comment: [05/10/2014] Received at [facility] Procedures Procedure Date Related Diagnosis Body Site Fusion Cervical (SCIP)1 11/21/15 Operative procedure on spine2 2010 Tubal ligation 2002 Tonsillectomy 1986 section3 Extraction of wisdom tooth Hernia repair 1auto-populated from documented surgical [id number] Social History No data available for this section Assessment and Plan No data available for this section
--- OUTSIDE RECORDS SUMMARY | 2016-07-23 15:51 | XMS REPORT | Summary of Care ---
:1975 Author Care Team Providers Name Role Phone No Family Phy, Physician Primary Care Physician Unavailable Encounter 03/29/14 - 04/03/14 [facility] [address] [place] [address] June Duenas. , [place] [address]- Discharge Disposition: Home Attending Physician: Gus Santamaria MD Admitting Physician: George WERNER, Francis Referring Physician: Self, Referral Vital Signs Most recent to 1 2 3 oldest [Reference Range]: Orientation Oriented to Person, Place, Time Oriented to Person, Place, Time Oriented to Person, Place, Time (03/30/14 1:16 PM) (03/29/14 12:38 PM) (03/29/14 2:33 AM) Sleep Quality Sleeps intermittently Sleeps intermittently Sleeping quielty with easy respirations (04/03/14 4:43 AM) (04/02/14 11:56 AM) (04/02/14 7:10 AM) Sleep, Number of Hrs 0 5.5 0 (04/03/14 4:10 PM) (04/03/14 4:43 AM) (04/02/14 7:55 PM) Sleep Comment Patient slept off and on majority of shift "needed to get some sleep" patient fell asleep before assessment ended. (03/29/14 10:08 PM) (03/29/14 10:56 AM) (03/29/14 5:45 AM) Respiratory Rate 16 brpm 18 brpm 18 brpm [12-30 brpm] (04/03/14 8:05 AM) (04/02/14 3:46 PM) (04/02/14 8:38 AM) Blood Pressure 99/70mm hg 134/91mm hg 117/67mm hg [(reference range (04/03/14 8:05 AM) (04/02/14 3:46 PM) (04/02/14 8:38 AM) unavailable)/61-99 mm hg] Temperature F 98.4 degF 98.9 degF 97.8 degF [97.7-99.9 degF] (04/02/14 3:46 PM) (04/01/14 3:28 PM) (03/31/14 3:45 PM) Height 170.2 cm 170.2 cm (03/29/14 2:33 AM) (03/29/14 2:33 AM) Weight 122.727 kg (03/29/14 2:33 AM) Problem List Condition Effective Dates Status Health Status Informant Morbid obesity(Probable Diagnosis)1 Active Smoker(Confirmed)2 Active 1Problem added as a result of a BMI>=402Problem added as a result of documented Tobacco Use. Allergies, Adverse Reactions, Alerts Substance Reaction Severity Status CeleBREX Active Toradol Moderate Active Medications No data available for this section Results No data available for this section Immunizations No data available for this section Procedures Procedure Date Related Diagnosis Body Site Laminectomy 06/15/10 Social History Social History Type Response Alcohol [...] Concerns about tobacco use in household: No3 [id number] was in treatment in [place] because I wanted to get off prescription pain meds.3none Assessment and Plan No data available for this section
--- OUTSIDE RECORDS SUMMARY | 2016-07-23 15:51 | XMS REPORT | Summary of Care ---
:1975 Author Organization [facility] Address [facility] [place] [address]- Care Team Providers Name Role Phone Silvano Lemus Primary Care Physician Encounter Date(s): 11/21/15 - 11/22/15 [facility] [address] [place] [address]- [facility] Discharge Diagnosis: Cervical radiculopathy Discharge Diagnosis: Arm pain Final: Other cervical disc displacement, mid-cervical region Final: Pain in left arm Final: Morbid (severe) obesity due to excess calories Discharge Disposition: 01 Discharged to Home or Self Care Attending Physician: José Lockhart MD Admitting Physician: José Lockhart MD Vital Signs Most recent to oldest 1 2 3 4 [Reference Range]: Temperature Temporal 36.6 DegC 36.7 DegC 36.7 DegC Artery [36-38 DegC] (11/22/15 11:00 AM) (11/22/15 8:00 AM) (11/22/15 4:00 AM) Heart Rate Monitored 74 bpm 61 bpm 91 bpm [60-100 bpm] (11/22/15 11:00 AM) (11/22/15 8:00 AM) (11/22/15 7:17 AM) Respiratory Rate [12-20 16 br/min 16 br/min 16 br/min br/min] (11/22/15 11:00 AM) (11/22/15 8:00 AM) (11/22/15 7:17 AM) SpO2 92 % 92 % 94 % 95 % (11/22/15 11:00 AM) (11/22/15 8:00 AM) (11/22/15 4:00 AM) (11/22/15 4:00 AM) SpO2 Location Left hand Left hand Left hand (11/22/15 11:00 AM) (11/22/15 8:00 AM) (11/22/15 4:00 AM) Blood Pressure 138/75aoOr7 142/11djLn8 143/71unPa0 [90-130/60-90 mmHg] *HI* *HI* *HI* (11/22/15 11:00 AM) (11/22/15 8:00 AM) (11/22/15 4:00 AM) Blood Pressure Location Right arm Right arm Right arm (11/22/15 11:00 AM) (11/22/15 8:00 AM) (11/22/15 4:00 AM) Most recent to oldest [Reference Range]: 1 2 3 4 Height/Length Measured 170 cm (11/21/15 7:48 AM) Height/Length Estimated 170 cm 170 cm (11/21/15 7:48 AM) (11/09/15 2:31 PM) Weight Estimated 138 kg 138 kg (11/21/15 7:48 AM) (11/09/15 2:31 PM) Weight Dosing 137.8 kg (11/21/15 7:48 AM) Weight Measured 137.8 kg (11/21/15 7:48 AM) BSA Measured 2.41 m2 (11/21/15 7:48 AM) BSA Estimated 2.55 m2 (11/21/15 7:48 AM) Body Mass Index Measured 47.68 kg/m2 (11/21/15 7:48 AM) Body Mass Index Estimated 47.75 kg/m2 (11/21/15 7:48 AM) 1Result Comment: notified PO [id number] Comment: notified PO Patino3Result Comment: notified piter Problem List Condition Effective Dates Status Health [...] 15 gm, 0 Refill(s), Start Date: 9:05:00 [employer]GER, Pharmacy: [facility] Start Date: 05/20/14 Stop Date: 05/29/14 Status: Completeddiazepam 5 mg oral tablet 1 tab(s), Oral, QID, PRN for anxiety, # 20 tab(s), 0 Refill(s), Start Date: 18:32:00 CDT Start Date: 11/03/15 Stop Date: 11/26/15 Status: CompletedEffexor XR 150 mg oral capsule, extended release 1 cap(s), Oral, qAM, # 30 cap(s), 1 Refill(s), Start Date: 05/20/14 9:07:00 [employer] MANAGER , Pharmacy: [facility] Start Date: 05/20/14 Stop Date: 11/09/15 Status: Completedfentanyl patch removal 0 Refill(s), Start Date: 09/25/15 13:08:00 CDT Start Date: 09/25/15 Stop Date: 11/09/15 Status: Completedgabapentin 400 mg oral capsule 3 cap(s), Oral, TID, # 120 cap(s), 0 Refill(s), Start Date: 05/10/14 5:23:00 [employer] MANAGER Start Date: 05/10/14 Stop Date: 05/20/14 Status: Discontinuedgabapentin 600 mg oral tablet 2 tab(s), Oral, TID, # 180 tab(s), 1 Refill(s), Start Date: 05/20/14 9:02:00 [employer] MANAGER , [facility] Start Date: 05/20/14 Status: OrderedHYDROcodone-acetaminophen 5 mg-325 mg oral tablet 2 tab(s), Oral, q6hr, X 3 days, # 15 tab(s), 0 Refill(s), Start Date: 10/09/15 19:44:00 CDT Start Date: 10/09/15 Stop Date: 10/12/15 Status: CompletedHYDROcodone-acetaminophen 5 mg-325 mg oral tablet 1 tab(s), Oral, q4hr, PRN for pain, 0 Refill(s), Start Date: 04/18/15 10:57:00 [employer] MA[employer]GER Start Date: 04/18/15 Stop Date: 11/09/15 Status: CompletedHYDROcodone-acetaminophen 5 mg-325 mg oral tablet 1 tab(s), Oral, q4hr, PRN for pain, # 60 tab(s), 0 Refill(s), Start Date: 13:06:00 CDT Start Date: 11/21/15 Stop Date: 12/05/15 Status: OrderedhydrOXYzine hydrochloride 50 mg oral tablet 1 tab(s), Oral, q6hr, PRN anxiety, # 120 tab(s), 0 Refill(s), Start Date: 9:06:00 [employer] MANAGER, Pharmacy: [facility] Start Date: 05/20/14 Stop Date: 11/09/15 Status: Completedibuprofen 800 mg oral tablet 1 tab(s), Oral, TID, # 90 tab(s), 0 Refill(s), Start Date: 05/10/14 5:24:00 [employer] MANAGER Start Date: 05/10/14 Status: OrderedLexapro 20 mg [...] 30 tab(s), 0 Refill(s), Start Date: 9:03:00 [employer] MANAGER, Pharmacy: [facility] Start Date: 05/20/14 Stop Date: 11/21/15 Status: Discontinuedmethadone 5 mg oral tablet 1 tab(s), Oral, TID, PRN for pain, 0 Refill(s), Start Date: 05/10/14 5:25:00 [employer] MANAGER Start Date: 05/10/14 Stop Date: 05/20/14 Status: [...] cap(s), 0 Refill(s), Start Date: 05/10/14 5:26:00 [employer] MANAGER Start Date: 05/10/14 Stop Date: 05/20/14 Status: Discontinuedomeprazole 20 mg, Oral, Daily, 0 Refill(s), Start Date: 05/10/14 5:26:00 [employer] MANAGER Start Date: 05/10/14 Stop Date: 05/20/14 Status: Discontinuedomeprazole 20 mg oral delayed release capsule 1 cap(s), Oral, Daily, # 30 cap(s), 0 Refill(s), Start Date: 05/20/14 9:04:00 [employer]S MANAGER, Pharmacy: [facility] Start Date: 05/20/14 Stop Date: 11/09/15 Status: Completedprazosin 1 mg oral capsule 1 cap(s), Oral, TID, 0 Refill(s), Start Date: 11/26/15 16:19:00 CDT Start Date: 11/26/15 Status: OrderedpredniSONE 20 mg oral tablet 3 tab(s), Oral, Daily, stop taking after 05/22/14, # 9 tab(s), 0 Refill(s), Start Date: 05/20/14 9:06:00 [employer] MANAGER, Pharmacy: [place] [id number] Special Instructions: stop taking after 05/22/14 Start Date: 05/20/14 Stop Date: 11/09/15 Status: CompletedpredniSONE 50 mg oral tablet 1 tab(s), Oral, Daily, X 5 days, # 5 tab(s), 0 Refill(s), Start Date: 10/09/15 19:45:00 CDT Start Date: 10/09/15 Stop Date: 10/14/15 Status: CompletedQUEtiapine 50 mg oral tablet 1 tab(s), Oral, TID, PRN anxiety, # 90 tab(s), 1 Refill(s), Start Date: 9:04:00 [employer] MANAGER, Pharmacy: [place] [id number] Start Date: 05/20/14 Status: OrderedQUEtiapine 50 mg oral tablet 1 tab(s), Oral, TID, PRN anxiety, 0 Refill(s), Start Date: 05/10/14 5:28:00 [employer] MANAGER Start Date: 05/10/14 Stop Date: 05/20/14 Status: Discontinuedsertraline 50 mg oral tablet 3 tab(s), Oral, Daily, 0 Refill(s), Start Date: 05/10/14 5:30:00 [employer] MANAGER Start Date: 05/10/14 Stop Date: 05/20/14 Status: DiscontinuedtraZODone 150 mg oral tablet 1 tab(s), Oral, HS, PRN insomnia, # 30 tab(s), 1 Refill(s), Start Date: 9:07:00 [employer] MANAGER, Pharmacy: [facility] Start Date: 05/20/14 Stop Date: 11/09/15 Status: CompletedWellbutrin XL 150 mg/24 hours oral tablet, extended release 1 tab(s), Oral, qAM, # 30 tab(s), 1 Refill(s), Start Date: 05/20/14 9:05:00 [employer]S MANAGER , Pharmacy: [facility] Start Date: 05/20/14 Stop Date: 11/09/15 Status: Completedzaleplon 5 mg oral capsule 1 cap(s), Oral, HS, PRN for sleep, 0 Refill(s), Start Date: 11/26/15 16:19:00 CDT Start Date: 11/26/15 Status: Ordered Results Patient Viewable Results Most recent to oldest 1 2 3 [Reference Range]: AN - Fi O2 94 % % 94 % % 48 % % (11/21/15 11:20 AM) (11/21/15 11:15 AM) (11/21/15 11:10 AM) Estimated Creatinine Clearance 158.23 mL/min (11/21/15 7:58 AM) Immunizations Vaccine Date Refusal Reason influenza virus vaccine, live1 03/15/14 1Result Comment: [05/10/2014] Received at [facility] Procedures Procedure Date Related Diagnosis Body Site Fusion Cervical (SCIP)1 11/21/15 Operative procedure on spine2 2010 Tubal ligation 2002 Tonsillectomy 1986 section3 Extraction of wisdom tooth Hernia repair 1auto-populated from documented surgical [id number] Social History No data available for this section Assessment and Plan No data available for this section
[2016-07-23] MEDS ORDERED: HYDROmorphone HCL 1 MG/ML DISP.SYRIN IM ONE (15:52)
[2016-07-23] MEDS ORDERED: HYDROmorphone HCL 1 MG/ML DISP.SYRIN ONE ×2 (16:55→19:16)
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
[2016-07-23 19:06] VITALS: BP 140/90
[2016-07-23] MEDS ORDERED: HYDROmorphone HCL 1 MG/ML DISP.SYRIN IV ONE (19:07)
== END 2016-07-23 19:44 | disposition short-term general hospital (02) ==
LOC: ER 15:31
DX: M54.5 Low back pain (principal); R53.1 Weakness; F17.210 Nicotine dependence, cigarettes, uncomplicated; W01.0XXA Fall on same level from slipping, tripping and stumbling without subsequent striking against object, initial encounter; Y92.009 Unspecified place in unspecified non-institutional (private) residence as the place of occurrence of the external cause

== ENCOUNTER 2016-08-04 11:56 | Emergency (ER) | payer MEDICAID ==
--- OUTSIDE RECORDS SUMMARY | 2016-08-04 13:18 | XMS REPORT | Continuity of Care Document ---
:1975 Author Organization [facility] [place] [address] Care Team Providers Name Role Phone Provider, None Per Patient Primary Care Provider Unavailable Source Comments This disclosure is being made pursuant to the [employer] program and maynot contain all information available regarding this patient.[facility] Active Allergies and Adverse Reactions Allergen Noted Date Severity Reactions Comments Celecoxib 03/23/2014 Low Rash Ketorolac 03/23/2014 Low Rash Current Medications Be aware that medications may not be up to date as of this document. Alwaysverify current medications with the patient. Prescription Sig. Disp. Refills Start Date End Date Status gabapentin Take 3 capsules by 135 capsule 1 06/22/2014 Active (NEURONTIN) 400 MG mouth 3 (three) capsule times daily. 2 week supply prazosin (MINIPRESS) Take 1 capsule by 15 capsule 1 06/22/2014 Active 1 MG capsule mouth nightly. 2 week supply venlafaxine HCl Take 3 capsules by 45 capsule 1 06/22/2014 Active (EFFEXOR-XR) 75 MG mouth daily with 24 hr capsule breakfast. 2 week supply HYDROcodone-acetamin Take 1 tablet by Active ophen (NORCO) 5-325 mouth every 4 MG per tablet (four) to 6 (six) hours as needed for Pain. Indications: Moderate to Moderately Severe Pain busPIRone (BUSPAR) Take 1 tablet by 60 tablet 0 01/12/2015 Active 7.5 MG tablet mouth 2 (two) times daily. QUEtiapine Fumarate Take 1 tablet by 30 tablet 0 01/12/2015 Active (SEROQUEL) 25 MG mouth every tablet morning. QUEtiapine Fumarate Take 3 tablets by 90 tablet 0 01/12/2015 Active (SEROQUEL) 50 MG mouth nightly. tablet zolpidem (AMBIEN) 10 Take 1 tablet by 30 tablet 0 01/12/2015 Active MG tablet mouth nightly as needed for Sleep. hydrOXYzine Take 1 capsule by 60 capsule 0 01/12/2015 Active (VISTARIL) 50 MG mouth 3 (three) capsule times daily as needed for Anxiety. Indications: Feeling Anxious metoprolol succinate Take 1 tablet by 30 tablet 0 01/12/2015 Active (TOPROL-XL) 25 MG 24 mouth daily. hr tablet prazosin (MINIPRESS) Take 1 capsule by 30 capsule 0 01/12/2015 Active 1 MG capsule mouth nightly. Active Problems Problem Noted Date Major depressive disorder, recurrent episode, severe, without mention of 01/09 psychotic behavior HTN (hypertension) 01/02/2015 Feeling suicidal 12/28/2014 Depression 06/21/2014 Most Recent Encounters Date Type Specialty Providers Description 05/29/2016 Data Import Immunizations Name Dates Previously Given Next Due Influenza Split 03/24/2013 Social History Tobacco Use Types Packs/Day Years Used Date Current Every Day Smoker 1 Smokeless Tobacco: Never Used Tobacco Cessation:Ready to Quit: No; Counseling Given: No Comments: Alcohol Use Drinks/Week oz/Week Comments Yes Alcoholic Drinks/day: CURRENT ALCOHOL USER rarely not weekly Last Filed Vital Signs Vital Sign Reading Time Taken Blood Pressure 94/80 01/12/2015 8:00 AM CDT Pulse 79 01/12/2015 8:00 AM CDT Temperature 35.8 C (96.4 F) 01/12/2015 7:55 AM CDT Respiratory Rate 18 01/12/2015 7:55 AM CDT Height 1.702 m (5' 7") 12/28/2014 10:10 PM CDT Weight 117.7 kg (259 lb 7.7 oz) 01/08/2015 6:00 PM CDT Body Mass Index 40.63 01/08/2015 6:00 PM CDT Oxygen Saturation - - Plan of Care Health Maintenance Due Date Last Done Comments Pneumococcal Medium Risk 19-64 yo (1 of 1 - PPSV23) 1996 Tetanus/Pertussis (1 - Tdap) 1996 Pap Smear 1998 Influenza Immunization (#1) 2016 03/24/2013 Results from Last 3 Months Not on file
--- OUTSIDE RECORDS SUMMARY | 2016-08-04 13:18 | XMS REPORT | Continuity of Care Document ---
:1975 Author Organization [facility] ([facility]) Address [address] [place] [address] Phone [phone] Care Team Providers Name Role Phone Silvano Lemus Primary Care Provider [phone] Source Comments This disclosure is being made pursuant to the Care Everywhere program, applicable federal and state laws, and may not contain all informaitonavailable regarding this patient.[facility] ([facility]) Active Allergies and Adverse Reactions Allergen Noted Date Severity Reactions Comments Celecoxib 08/27/2012 Rash Ketorolac Tromethamine Urticaria (Hives) Current Medications Prescription Sig. Disp. Refills Start Date End Date Status DULoxetine 60 mg XR Take 60 mg by Active capsule mouth 2 times daily. traZODone 100 mg Take 100 mg by Active tablet mouth at bedtime. gabapentin 400 mg Take 1,200 mg Active capsule by mouth 3 times daily. ibuprofen 800 mg Take 800 mg by Active tablet mouth every 8 hours as needed for Pain. oxyCODONE 5 mg Take 1-2 60 tablet 0 07/26/2016 Active immediate release tablets (5-10 tablet mg total) by mouth every 6 hours as needed for Pain (pain not improved by Tylenol or Ibuprofen). cyclobenzaprine 10 mg Take 1 tablet 30 tablet 0 07/26/2016 Active tablet (10 mg total) by mouth 3 times daily as needed for Muscle spasms. oxyCODONE 5 mg Take 1-2 20 tablet 0 06/01/2016 Discontinued immediate release tablets (5-10 7 tablet mg total) by mouth 4 times daily as needed for pain (if pain is not improved by Tylenol or Ibuprofen). cyclobenzaprine 10 mg Take 1 tablet 30 tablet 0 07/26/2016 Discontinued tablet (10 mg total) 7 by mouth 3 times daily as needed for Muscle spasms. Active Problems Problem Noted Date Urinary incontinence 06/01/2016 Narcotic habituation, continuous 02/06/2016 Overview: See [place] [facility] for multiple narcotic and benzodiazepine prescriptions over last few months by multiple providers RLQ abdominal pain 02/05/2016 Back pain 05/02/2013 Morbid obesity with BMI of 40.0-44.9, adult 05/02/2013 Low back pain 08/22/2012 Lumbago 12/22/2007 Resolved Problems Problem Noted Date Resolved Date Weakness of right lower extremity 07/24/2016 07/26/2016 Intractable cyclical vomiting with nausea 02/05/2016 02/06/2016 [...] Recent Encounters Date Type Specialty Providers Description 07/28/2016 Office Visit Neurosurgery Mendez Aleman, Chief Comp: Patient MD Reported Reason For Visit 07/28/2016 Nurse Triage General Care Yanira Wright Chief Comp: 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, 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 07/25/2016 Hospital Neurology Harley Wild MD Dx: Acute Encounter right-sided low back pain with sciatica, sciatica laterality unspecified (Primary Dx) 07/23/2016 - [facility] Trip Casey, Dx: Weakness of 07/26/2016 Encounter Inpatient - Adult MD right lower [place] extremity (Primary N, MD Dx) Demetrio Joseph MD [place] Jayanna, Manju, MD Telfah, Mohammad A, MD 06/05/2016 Orders/Notes Neurosurgery Mendez Aleman, Dx: Urinary MD incontinence (Primary Dx) 06/02/2016 Nurse Triage Care Coordination Candie Nobles Chief Comp: KARIME Mccrary RN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 06/01/2016 Pharmacy Visit 05/30/2016 - [facility] Polo Lewis Dx: Chronic midline 06/01/2016 Encounter Inpatient - Adult MD Chrissy low back pain Kati Pitts, without sciatica (Primary Dx) Isela Watson MD Kumar, Prerna, MD Immunizations Name Dates Previously Given Next Due Influenza, PF 08/25/2012 Pneumococcal, unspecified 08/24/2010 Social History Tobacco Use Types Packs/Day Years Used Date Current Every Day Smoker Cigarettes 07 06 Smokeless Tobacco: Never Used Tobacco Cessation:Ready to Quit: No Comments: Alcohol Use Drinks/Week oz/Week Comments Yes 0 Standard drinks or equivalent 0.0 occasional Last Filed Vital Signs Vital Sign Reading Time Taken Blood Pressure 109/72 07/26/2016 4:00 PM [facility] Pulse 81 07/26/2016 4:00 PM [employer] Temperature 36.3 C (97.3 F) 07/26/2016 4:00 PM [employer] Respiratory Rate 16 07/26/2016 4:00 PM [employer] [employer] Height 1.778 m (5' 10") 05/31/2016 3:30 AM [employer] [employer]ER Weight 138 kg (304 lb 3.8 oz) 07/24/2016 4:30 AM [employer] [employer]ER Body Mass Index 43.65 07/24/2016 4:30 AM [employer] [employer]ER Oxygen Saturation 96% 07/26/2016 4:00 PM [employer] [employer] Plan of Care Health Maintenance Due Date Last Done Comments Hepatitis B Vaccine (1 of 3 - Primary Series) 1975 Tdap Vaccine 1988 Lipid Disorder Screening 1995 MMR Vaccine 1995 Td Vaccine 1995 Pneumococcal Vaccine (1 of 1 - PPSV23) 1996 Cervical Cancer Screening 2007 05/10/2002 Influenza Vaccine: Seasonal (#1) 01/14/2016 08/25/2012 Results from Last 3 Months [facility] - [facility] (07/25/2016 4:25 PM) Narrative Jaclyn Ram 07/25/20164:25 PM Reason for Request: Lower extremity weakness Requested by: Dunia Mondragon MD Staff Physician: Harley Wild MD Date of Service: 07/25/2016 Please see complete F-15 report to be scanned in under Media Tab. [facility] patient intake form has been completed and reviewed. [facility] (07/25/2016 4:25 PM) Narrative YoJaclyn Sarahi 07/25/20164:25 PM Reason for Request: Lower extremity weakness Requested by: Dunia Mondragon MD Staff Physician: Harley Wild MD Date of Service: 07/25/2016 Please see complete F-15 report to be scanned in under Media Tab. [facility] patient intake form has been completed and reviewed. MRI SPINE CERVICAL WO CONTRAST ([id number]) (07/24/2016 8:00 PM)Only the most recent of2 resultswithin the time period is included. Impressions Impression: Postsurgical changes of C6-C7 ACDF No evidence of acute injury. This final report is in agreement with the critical and emergent preliminary findings reported by the financial institution vice president instructional paraprofessional. Narrative Procedure: MRI SPINE CERVICAL WO CONTRAST ([id number]) Indication: Weakness of the right lower extremity Technique: Multisequence, multiplanar MRI of the cervical spine without IV contrast using a trauma protocol. Comparison: 05/31/2016 Findings: Exam is partially limited due to motion and hardware. There is grossly anatomic alignment. Postsurgical changes of C6-C7 ACDF. Vertebral body heights are within normal limits. Craniovertebral junction relationships are well-maintained. Moderate multilevel degenerative changes. Normal cord signal. The longitudinal ligaments and ligamentum flavum are intact. The interspinous ligaments are within normal limits. No epidural collections. Prevertebral soft tissues are unremarkable. Normal marrow signal. Procedure Note Ron, Incoming Imaging Results - ThuJul 25, 2016 2:48 PM [employer]ER Procedure: MRI SPINE CERVICAL WO CONTRAST ([id number]) Indication: Weakness of the right lower extremity Technique: Multisequence, multiplanar MRI of the cervical spine without IV contrast using a trauma protocol. Comparison: 05/31/2016 Findings: Exam is partially limited due to motion and hardware. There is grossly anatomic alignment. Postsurgical changes of C6-C7 ACDF. Vertebral body heights are within normal limits. Craniovertebral junction relationships are well-maintained. Moderate multilevel degenerative changes. Normal cord signal. The longitudinal ligaments and ligamentum flavum are intact. The interspinous ligaments are within normal limits. No epidural collections. Prevertebral soft tissues are unremarkable. Normal marrow signal. IMPRESSION Impression: Postsurgical changes of C6-C7 ACDF No evidence of acute injury. This final report is in agreement with the critical and emergent preliminary findings reported by the financial institution vice president instructional paraprofessional. MRI SPINE THORACIC WO CONTRAST ([id number]) (07/24/2016 12:49 AM)Only the most recent of2 resultswithin the time period is included. Impressions Impression: 1. Stable multilevel degenerative changes of the thoracic spine most prominent at the T11-12 level with left paracentral disc protrusion. No abnormal cord signal or acute complications. 2. No acute fracture or dislocation. No evidence of ligamentous injury. MRI is not sensitive for detection of fractures of the posterior elements, if clinically indicated suggest further evaluation with CT. Narrative Procedure: MRI SPINE THORACIC WO CONTRAST ([id number]) Indication: Fall with RLE weakness and mid-back pain. Eval for cord compression. Technique: Multisequence, multiplanar MRI of the thoracic spine without IV contrast using a trauma protocol. Comparison: MRI 2015 Findings: Grossly stable multilevel degenerative changes of the thoracic spine. Multilevel disc disease most appreciable at T11-12 with a left paracentral disc protrusion seen flattening the ventral aspect of the thecal sac but without corresponding cord signal changes. There is additional focal disc disease seen at T5-6, T7-8, and T8-9 levels where central posterior disc protrusions are seen with mild effacement of the ventral aspect of the thecal sac without significant effect on the cord. There is grossly anatomic alignment. Vertebral body heights are within normal limits. No abnormal cord signal.. The longitudinal ligaments and ligamentum flavum are intact. No epidural collections. Paravertebral soft tissues are unremarkable. 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 Eval for cord compression. Technique: Multisequence, multiplanar MRI of the thoracic spine without IV contrast using a trauma protocol. Comparison: MRI 2015 Findings: Grossly stable multilevel degenerative changes of the thoracic spine. Multilevel disc disease most appreciable at T11-12 with a left paracentral disc protrusion seen flattening the ventral aspect of the thecal sac but without corresponding cord signal changes. There is additional focal disc disease seen at T5-6, T7-8, and T8-9 levels where central posterior disc protrusions are seen with mild effacement of the ventral aspect of the thecal sac without significant effect on the cord. There is grossly anatomic alignment. Vertebral body heights are within normal limits. No abnormal cord signal.. The longitudinal ligaments and ligamentum flavum are intact. No epidural collections. Paravertebral soft tissues are unremarkable. IMPRESSION Impression: 1. Stable multilevel degenerative changes of the thoracic spine most prominent at the T11-12 level with left paracentral disc protrusion. No abnormal cord signal or acute complications. 2. No acute fracture or dislocation. No evidence of ligamentous injury. MRI is not sensitive for detection of fractures of the posterior elements, if clinically indicated suggest further evaluation with CT. MRI SPINE LUMBAR WO CONTRAST ([id number]) (07/24/2016 12:49 AM) Impressions Impression: 1. Stable postsurgical changes at L3-4, L4-5 and L5-S1. 2. Grossly stable multilevel degenerative changes, most severe at the L3-L4 and L4-L5 levels as described above. 3. No evidence of acute fracture or dislocation. Narrative Procedure: MRI SPINE LUMBAR WO CONTRAST ([id number]) Indication: Fall with sudden onset back pain. RLE weakness and incontinence of bowel/bladder. Eval for evidence of cauda equina, cord compression. Technique: Multiplanar, multisequence MRI of the lumbar spine without IV contrast using a trauma protocol. Comparison: MRI dated 05/30/2016 and 04/03/2016, lumbar radiography dated 05/31/2016 Findings: There are 5 lumbar-type vertebra based on the prior x-ray. The study extends from the T10-S2 level on the sagittal planes. There is redemonstration of minimal retrolisthesis of L2 over L3 that appears stable. The visualized cord is within normal limits. The conus medullaris terminates at T12-L1. Multilevel degenerative changes of the spine are seen as described above. No epidural collections. Redemonstration of the postsurgical changes of L3-4, L4-5 and L5-S1 laminectomy. No evidence of acute fractures or dislocation. Multilevel disc signal loss consistent with disc degeneration except for T12/L1. T11-T12: Stable small left paracentral disc protrusion with mild deformity of the thecal sac. No significant neural foraminal narrowing. T12-L1: No significant focal disc changes or neuroforaminal narrowing. L1-L2: Mild diffuse disc bulging with mild deformity of the thecal sac. No significant neuroforaminal narrowing. L2-L3: Mild to moderate disc osteophyte complex. Stable mild thecal sac deformity. There is moderate to severe left-sided neural foraminal narrowing, and moderate right-sided neural foraminal narrowing. Discogenic bone marrow signal changes. L3-L4: Diffuse disc bulging is associated with focal central disc extrusion and postsurgical soft tissue changes posteriorly. There is mild effacement anterior thecal sac, severe right-sided neural foraminal narrowing, and moderate left-sided neural foraminal narrowing. L4-L5: Diffuse disc bulging is associated with central disc extrusion with cranial extension. There is mild effacement anterior thecal sac, and moderate neural foraminal narrowing bilaterally. L5-S1: Mild to moderate diffuse disc bulging worse to the left with no significant narrowing of the thecal sac. Mild left neural foraminal narrowing. 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 RLE weakness and incontinence of bowel/bladder. Eval for evidence of cauda equina, cord compression. Technique: Multiplanar, multisequence MRI of the lumbar spine without IV contrast using a trauma protocol. Comparison: MRI dated 05/30/2016 and 04/03/2016, lumbar radiography dated 05/31/2016 Findings: There are 5 lumbar-type vertebra based on the prior x-ray. The study extends from the T10-S2 level on the sagittal planes. There is redemonstration of minimal retrolisthesis of L2 over L3 that appears stable. The visualized cord is within normal limits. The conus medullaris terminates at T12-L1. Multilevel degenerative changes of the spine are seen as described above. No epidural collections. Redemonstration of the postsurgical changes of L3-4, L4-5 and L5-S1 laminectomy. No evidence of acute fractures or dislocation. Multilevel disc signal loss consistent with disc degeneration except for T12/L1. T11-T12: Stable small left paracentral disc protrusion with mild deformity of the thecal sac. No significant neural foraminal narrowing. T12-L1: No significant focal disc changes or neuroforaminal narrowing. L1-L2: Mild diffuse disc bulging with mild deformity of the thecal sac. No significant neuroforaminal narrowing. L2-L3: Mild to moderate disc osteophyte complex. Stable mild thecal sac deformity. There is moderate to severe left-sided neural foraminal narrowing, and moderate right-sided neural foraminal narrowing. Discogenic bone marrow signal changes. L3-L4: Diffuse disc bulging is associated with focal central disc extrusion and postsurgical soft tissue changes posteriorly. There is mild effacement anterior thecal sac, severe right-sided neural foraminal narrowing, and moderate left-sided neural foraminal narrowing. L4-L5: Diffuse disc bulging is associated with central disc extrusion with cranial extension. There is mild effacement anterior thecal sac, and moderate neural foraminal narrowing bilaterally. L5-S1: Mild to moderate diffuse disc bulging worse to the left with no significant narrowing of the thecal sac. Mild left neural foraminal narrowing. IMPRESSION Impression: 1. Stable postsurgical changes at L3-4, L4-5 and L5-S1. 2. Grossly stable multilevel degenerative changes, most severe at the L3-L4 and L4-L5 levels as described above. 3. No evidence of acute fracture or dislocation. TYPE AND SCREEN (BLOOD TYPE(ABORH) AND RBC ANTIBODY SCREEN) (07/23/2016 10:21 PM )Only the most recent of2 resultswithin the time period is included. Component Value Range ABORH A Positive Specimen Expiration Date 2016-07-26 Antibody Screen Negative Specimen Blood PTT (PARTIAL THROMBOPLASTIN TIME) (07/23/2016 10:21 PM)Only the most recent of2 resultswithin the time period is included. Component Value Range PTT 21(L) 22-31 secs Specimen Blood PT/INR (PROTHROMBIN TIME/INR) VENOUS (07/23/2016 10:21 PM)Only the most recent of2 resultswithin the time period is included. Component Value Range PT (Prothrombin Time) 10 9-12 secs INR 1.0 <4.0 Specimen Blood BASIC METABOLIC PANEL W/ CALCIUM (CHEM 8) (07/23/2016 10:21 PM)Only the most recent of2 resultswithin the time period is included. Component Value Range Sodium 140 135-145 mEq/L Potassium 3.8 3.5-5.0 mEq/L Chloride 103 95-107 mEq/L CO2 23 22-29 mEq/L Anion Gap 14 8-18 mEq/L BUN 6(L) 10-20 mg/dL Creatinine 0.7Comment: 0.5-1.0 mg/dL Creatinine switched to enzymatic method on 10/22/2010.GFR equation switched to IDMS-traceable MDRD equation on 10/22/2010. Calculated GFR values are not valid in clinical settings where serum creatinine is changing. Glucose 107(H)Comment: 65-99 mg/dL The Expert Committee on the Diagnosis and Classification of Diabetes has defined impaired fasting glucose as greater than or equal to 100 mg/dL but less than 126 mg/dL.(Diabetes Care 28 (Suppl 1)S41,2005) Calcium 8.7 8.5-10.5 mg/dL Calculated GFR >90 >60 mL/min/1.73 m2 Specimen Blood CBC (COMPLETE BLOOD COUNT) (07/23/2016 10:21 PM) Component Value Range WBC Count 7.6 3.7-10.5 K/MM3 RBC Count 4.26 4.00-5.20 M/MM3 Hemoglobin 12.8 11.9-15.5 g/dL Hematocrit 40 35-47 % MCV (Mean Corpuscular Volume) 94 82-99 FL MCH (Mean Corpuscular Hemoglobin) 30 25-35 PG MCHC (Mean Corpuscular Hemoglobin Concentration) 32 32-36 % Platelet Count 363 150-400 K/MM3 MPV (Mean Platelet Volume) 10.4 9.4-12.3 FL RBC Dist Width-STD 47.4(H) 36.4-46.3 FL RBC Distrib Width 13.8 9.0-14.5 % Nucleated RBC 0 /[address] WBC [address] Whole Blood [address] CERVICAL SPINE WO INCL T-3 ([id number]) (05/31/2016 2:19 PM) Impressions Impression: 1.Negative C-spine CT. 2.Negative limited upper thoracic spine CT. This final report is in agreement with the critical and emergentpreliminary findings reported by the financial institution vice president instructional paraprofessional. Narrative Procedure: CT CERVICAL SPINE WO INCL T-3 ([id number]) Indication: Fall. Rule out fractures. Technique: Axial [...] - Sat May 31, 2016 5:04 PM [employer]ER Procedure: CT CERVICAL SPINE WO INCL T-3 ([id number]) Indication: Fall. Rule out fractures. Technique: Axial [...] critical and emergentpreliminary findings reported by the financial institution vice president instructional paraprofessional. L SPINE AP& LATERAL (05/31/2016 2:15 PM) [...] Procedure Note Ron, Incoming Imaging Results - Sun Jun 01, 2016 7:56 AM [employer]ER Procedure: T SPINE AP & LATERAL, L [...] Procedure Note Ron, Incoming Imaging Results - Sun Jun 01, 2016 7:56 AM [employer]LAY [employer]ITCHER Procedure: T SPINE AP & LATERAL, L [...] is stable. IMPRESSION Impression: No acute findings. MICROSCOPIC URINALYSIS (05/31/2016 12:14 PM) Component Value Range White Blood Cells, Urine <1 0-5 /HPF Red Blood Cells, Urine <1 0-2 /HPF Bacteria, Urine Many(A) /HPF Squamous Epithelial Cells, Urine 52(H) <=10 /LPF Specimen Urine URINALYSIS WITH REFLEX CULTURE (05/31/2016 12:14 PM) Component Value Range Color, Urine Yellow Straw, Pale Yellow, Yellow, Clear, None Clarity, Urine Clear Clear pH, Urine 6.0 <9.0 Spec [place], Urine 1.015 1.000-1.030 Glucose, Urine Negative Negative [...] Abnormality Status --------- ------ URINALYSIS WITH REFLEX C...[[id number]]Normal Final result MICROSCOPIC URINALYSIS[[id number]] Abnormal Final result URINE CULTURE, REFLEXED[[id number]] Please view results for these tests on the individual orders. DIFFERENTIAL (05/31/2016 7:56 AM)Only the most recent of2 resultswithin the time period is included. Component Value Range % Neutrophils-Auto Diff 77.2 % Neutrophils-Auto Diff 6460 4619-0253 /MM3 % Lymphocytes-Auto Diff 14.5 % Lymphocytes-Auto Diff 4788 886-5543 /MM3 % Monocytes-Auto Diff 5.1 % Monocytes-Auto [...] Abnormality Status --------- ------ CBC (COMPLETE BLOOD COUNT)[[id number]] AbnormalFinal result DIFFERENTIAL[[id number]] Final result Please view results for these tests on the individual orders. MRI SPINE LUMBAR W/WO CONTRAST ([id number]) (05/30/2016 10:57 PM) Impressions IMPRESSION: 1. Degenerative and postsurgical changes in the visualized lumbar spine, overall stable since prior. There is mild to moderate narrowing of the spinal canal at L3-L4 level as before. This final report is in agreement with the critical and emergentpreliminary findings reported by the financial institution vice president instructional paraprofessional. 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 ANTIBODY PANEL INTERPRETATION (05/30/2016 8:39 PM) Component Value Range Antibody Identification Negative Specimen Blood C-REACTIVE PROTEIN (05/30/2016 8:39 PM) Component Value Range CRP (C-Reactive Protein) 2.7(H) <=0.5 mg/dL Specimen Blood ERYTHROCYTE SEDIMENTATION RATE (05/30/2016 8:39 PM) Component Value Range ESR (Erythrocyte Sedimentation Rate) 2 0-20 mm/Hr Specimen Whole Blood LACTIC ACID, WHOLE BLOOD ([facility]) (05/30/2016 8:39 PM) Component Value Range Lactic Acid, Whole Blood 0.7Comment: 0.5-2.0 mEq/L Glycolate, the principle toxic metabolite of ethylene glycol, can cause artifactual elevation of measured lactate. Specimen Blood
[2016-08-04] MEDS ORDERED: oxyCODONE HCL/ACETAMINOPHEN 1 TAB TABLET PO ONE (14:30)
[2016-08-04] MEDS ORDERED: oxyCODONE HCL/ACETAMINOPHEN 1 TAB TABLET ONE (14:36)
--- NOTE | 2016-08-04 14:37 | ERNOTE ---
Back Pain ER HPI Date of Service: 08/04/16 Presenting Symptoms: injury/pain to back, hx chronic back pain Time Seen by Provider: 08/04/16 13:03 Source: patient, RN notes reviewed, past records Exam Limitations: no limitations Immunizations: IMMUNIZATION HX Immunizations Up to Date Yes History of Influenza Vaccine Yes Hx Pneumococcal Vaccination No Allergies/Adverse Reactions: Allergies celecoxib [From Celebrex] Allergy (Intermediate, Verified 08/04/16 12:15) Hives ketorolac tromethamine [From Toradol] Allergy (Intermediate, Verified 08/04/16 12:15) Hives morphine Adverse Reaction (Intermediate, Verified 08/04/16 12:15) Itching Home Medications: HOME MEDICATIONS Gabapentin [Neurontin] 1,200 mg PO TID 03/22/14 [Last Taken 08/22/15 23:00] Ibuprofen [Motrin] 800 mg PO QID PRN 07/25/15 [Last Taken 01/24/16 19:00] Prazosin HCl 3 mg PO HS 01/03/16 [Last Taken Unknown] Crewe Carbonate [Crewe Carbonate ER] 450 mg PO BID #14 tablet.er 06/25/16 [ Last Taken Unknown] Oxycodone HCl/Acetaminophen [Percocet 10-325 mg Tablet] 1 each PO BID #14 tablet 06/25/16 [Last Taken Unknown] Narrative: 41 y/o female to ED in wheelchair for back pain after falling off of her deck at home last evening. She reports that she has been unable to urinate since, aside from leaking small amounts of urine occasionally. She also reports being incontinent of stool twice this morning. She has been transferred from here to [facility] twice in just over 2 months for the same symptoms. Her MRI done at the [facility] when she was transferred showed no acute injury, only degenerative changes. She reports that her incontinence resolved during that hospitalization with steroid treatment. According to her record from there, no steroids were given. She was scheduled to f/u with neurology, but did not go to that appointment. She has been dismissed from her PCP and has been getting her pain medication from her psychiatrist, Dr. Daniel. She was also recently dismissed from her pharmacy. She routinely takes oxycodone for pain. Her pain is chronically in her lower back, but she reports it is above this level today. Date (Duration): 08/03/16 Timing: Reports: constant Quality/Severity: Reports: severe Location of pain: Reports: mid back, no radiation Activities at Onset: Reports: other - Fall Recent Injury?: Reports: no, yes Possible Precipitating Factor: Reports: fall/near fall Modifying Factors - (Improves): Reports: nothing Modifying Factors - (Worsens): Reports: nothing Associated Symptoms: Reports: constipation/incontinence, problems urinating, difficulty walking, numbess/weakness in legs. Denies: fever/chills, sweating, nausea/vomiting, lightheadedness Prior Treament: Reports: recently seen, treated by physician, recently hospitalized, similar symptoms before Review of Systems - Review of Systems Constitutional: Absent: recent illness, fever, chills EYE: Present: no symptoms reported ENT: Present: no symptoms reported Respiratory: Absent: shortness of breath, cough Cardiology: Absent: chest pain, palpitations, syncope, edema Gastrointestinal/Abdominal: Absent: nausea, vomiting, diarrhea, constipation, abdominal pain Genitourinary: Present: other - unable to void. Absent: pain, dysuria Musculoskeletal: Present: back pain. Absent: neck pain, joint pain, joint swelling Skin: Absent: lesions, lumps, change in color Neurological: Present: weakness, numbness, tingling, pre-existing deficit - Right leg weakness. Absent: headache, dizziness/light-headedness, seizure Endocrine: Present: no symptoms reported Hematologic/Lymphatic: Present: no symptoms reported Psych: Present: no symptoms reported - Patient's Past Medical History Patient History - Medical: Anxiety, Chronic Pain, Depression, Obesity, Osteoarthritis Patient History - Cardiac/Respiratory: Hypertension Patient History - Cancer: No Hx of Cancer Patient History - Surgical Procedures: Back Surgery, , D & C, Tubal Ligation, T & A Patient History - Other: None LMP (females 10-50): Tubal ligation - Family History Mother Family History - Medical: Diabetes Type 1 Family History - Cardiac/Respiratory: CVA/Stroke, Hypertension Father Family History - Medical: Diabetes Type 2 Family History - Cardiac/Respiratory: CVA/Stroke, Hypertension - Social History Living Situations: home Abuse History: No History of abuse, Hx of Substance Use Psych History: Hx of Anxiety, Hx of Depression, Hx of Suicide Attempt, Hx of Psychiatric Tx, Current tx/ever been on anti-depressants or anti-anxiety meds Does anyone smoke in the home?: Yes Smoking Status: Current every day smoker Alcohol Use: rarely Drug Use: marijuana - Immunizations Immunizations Up to Date: Yes Hx Pneumococcal Vaccination: No History of Influenza Vaccine: Yes Physical Exam - Physical Exam General Appearance: Present: wd/wn, alert, mild distress, obese Eye Exam: Normal inspection: bilateral, PERRL: bilateral Ears, Nose, Throat: Present: hearing grossly normal Neck: Present: normal inspection, nontender, supple, full range of motion Respiratory: Present: no respiratory distress, normal breath sounds, no accessory muscle use, chest nontender, lungs clear Cardiovascular/Chest: Present: no murmur, normal peripheral pulses, tachycardia Peripheral Pulses: N=norm/S=strong/W=weak/B=bound/A=absent: Dorsalis-pedis (R): Strong, Dorsalis-pedis (L): Strong Gastrointestinal/Abdominal: Present: normal bowel sounds, nontender, nondistended, soft Rectal Exam: Present: nontender, normal rectal tone, other - soft brown stool present, no evidence of fecal incontinence or leakage of urine on exam. Absent : blood-streaked stool, fecal impaction Back Exam: Present: vertebral tenderness - Diffuse tenderness throughout lumbar region, decreased range of motion. Absent: muscle spasm Extremity Exam: Present: non-tender, decreased range of motion - Weakness in right leg, normal strength against resistance in left leg, pedal edema - trace bilaterally Neurological Exam: Present: alert, oriented, normal mood/affect, motor weakness - Right lower extremity, other - decreased sensation in right lower extremity Skin Exam: Present: normal color, warm/dry. Absent: diaphoresis ED Progress - Vital Signs Patient's Vital Signs:: I have reviewed the patient's vital signs. Vital Signs: Vital Signs 08/04/16 12:06 Temperature 36.6 C Pulse Rate 128 H Respiratory 12 Rate Blood Pressure 119/72 O2 Sat by Pulse 97 Oximetry - Progress/Reassessment Chief Complaint: Back Pain Progress:: Unchanged Progress Note-Subjective: 08/04/16 17:23 Patient reporting worsening pain after having Percocet 3 hours ago. Dilaudid and Zofran ordered IV. Patient is asking for something to drink, is to remain NPO for now. Awaiting ambulance for transfer. 08/04/16 17:50 Ambulance here for transfer, no change in condition. Plan - Plan Plan: No evidence of fecal incontinence or urinary incontinence on exam. Bladder scan showed 810 ml of urine present. Patient transferred from bed to commode with 2 assist. Nurses report that she was able to pivot on the right leg, but yet will lift the leg with her hands to move it around in bed as though it is completely flaccid. Transferred from wheelchair to bed on arrival without any difficulty. Taylor catheter inserted by staff with 1200ml return. Dr. Osei contacted for admission for observation here, as her symptoms are somewhat nebulous as to their validity - particularly in light of her similar complaints in the past. He declined to admit here and recommended transfer as patient will likely need another MRI. Patient unable to have MRI done here d/t her size. Patient also needs to be evaluated by neurosurgery given her complaints. [facility] contacted for transfer. Patient accepted by Dr. Nieves for transfer at 1550. Departure Clinical Impression: Weakness of right lower extremity, Acute exacerbation of chronic low back pain , Acute urinary retention Fall in home Qualifiers: Encounter type: initial encounter Qualified Code(s): W19.XXXA - Unspecified fall, initial encounter Fecal incontinence Qualifiers: Fecal incontinence type: unspecified Qualified Code(s): R15.9 - Full incontinence of feces - Departure Disposition: [facility] Condition: Stable
[2016-08-04] MEDS ORDERED: HYDROmorphone HCL 1 MG/ML DISP.SYRIN IV ONE (17:22)
[2016-08-04] MEDS ORDERED: ONDANSETRON HCL/PF 2 MG/ML VIAL IV ONE (17:22)
[2016-08-04] MEDS ORDERED: ONDANSETRON HCL/PF 2 MG/ML VIAL ONE (17:40)
[2016-08-04] MEDS ORDERED: HYDROmorphone HCL 1 MG/ML DISP.SYRIN ONE (17:40)
[2016-08-04 19:32] VITALS: BP 116/89
== END 2016-08-04 17:41 | disposition short-term general hospital (02) ==
LOC: ER 11:56
DX: M62.81 Muscle weakness (generalized) (principal); G89.29 Other chronic pain; R33.9 Retention of urine, unspecified; W19.XXXA Unspecified fall, initial encounter; R15.9 Full incontinence of feces; Z72.0 Tobacco use

== ENCOUNTER 2016-09-11 20:55 | Emergency (ER) | payer MEDICAID ==
[2016-09-11 21:04] VITALS: BP 137/94
[2016-09-11] MEDS ORDERED: NALBUPHINE HCL 20 MG/ML AMPUL IV ONE (21:30)
[2016-09-11] MEDS ORDERED: NORMAL SALINE 1,000 ML IV ONE (21:30)
[2016-09-11] MEDS ORDERED: ONDANSETRON HCL/PF 2 MG/ML VIAL IV ONE (21:30)
--- OUTSIDE RECORDS SUMMARY | 2016-09-11 21:43 | XMS REPORT | Continuity of Care Document ---
:1975 Author Organization [facility] ([facility]) Address [address] [place] [address] Phone [phone] Care Team Providers Name Role Phone Silvano Lemus Primary Care Provider [phone] Source Comments This disclosure is being made pursuant to the Care Everywhere program, applicable federal and state laws, and may not contain all informaitonavailable regarding this patient.[facility] ([facility]) Active Allergies and Adverse Reactions Allergen Noted Date Severity Reactions Comments Celecoxib 08/27/2012 Rash Ketorolac Tromethamine Urticaria (Hives) Current Medications Prescription Sig. Disp. Refills Start Date End Date Status ibuprofen 800 mg Take 800 mg Active tablet by mouth as needed for Pain. acetaminophen 500 mg Take 500 mg Active tablet by mouth as needed. cyclobenzaprine 10 mg Take 1 tablet 30 tablet 0 08/28/2016 Active tablet (10 mg total) by mouth 3 times daily as needed for Muscle spasms. DULoxetine 60 mg XR Take 1 60 capsule 1 08/28/2016 Active capsule capsule (60 mg total) by mouth 2 times daily. gabapentin 400 mg Take 3 90 capsule 1 08/28/2016 Active capsule capsules (1,200 mg total) by mouth 3 times daily. omeprazole 20 mg Take 1 30 capsule 2 08/28/2016 Active enteric coated capsule (20 capsule mg total) by mouth daily. prazosin 1 mg capsule Take 3 90 capsule 11 08/28/2016 Active capsules (3 mg total) by mouth at bedtime. QUEtiapine 100 mg Take 1 tablet 30 tablet 1 08/28/2016 Active tablet (100 mg total) by mouth at bedtime as needed (sleep). traZODone 50 mg Take 5 150 tablet 1 08/28/2016 Active tablet tablets (250 mg total) by mouth at bedtime. QUEtiapine 25 mg Take 1 tablet 90 tablet 1 08/29/2016 Active tablet (25 mg total) by mouth every 8 hours as needed (anxiety). DULoxetine 60 mg XR Take 60 mg by Discontinued capsule mouth 2 times 7 daily. traZODone 100 mg Take 100 mg Discontinued tablet by mouth at 7 bedtime. gabapentin 400 mg Take 1,200 mg Discontinued capsule by mouth 3 7 times daily. oxyCODONE 5 mg Take 1-2 60 tablet 0 07/26/2016 Discontinued immediate release tablets (5-10 7 tablet mg total) by mouth every 6 hours as needed for Pain (pain not improved by Tylenol or Ibuprofen). cyclobenzaprine 10 mg Take 1 tablet 30 tablet 0 07/26/2016 Discontinued tablet (10 mg total) 7 by mouth 3 times daily as needed for Muscle spasms. lithium carbonate 450 Take 1 tablet 30 tablet 0 08/05/2016 Discontinued mg ER tablet (450 mg 7 total) by mouth 2 times daily. oxyCODONE 5 mg Take 5-10 mg Discontinued immediate release by mouth 7 tablet every 4 hours as needed for Pain. May take 5 mg-10 mg every 4-6 hours as needed for pain. QUEtiapine 25 mg Take 1 tablet 120 tablet 0 08/28/2016 Discontinued tablet (25 mg total) 7 by mouth every 6 hours as needed (anxiety). Active Problems Problem Noted Date Bipolar disorder with severe depression 08/06/2016 Borderline personality disorder 08/05/2016 Suicidal risk 08/05/2016 Urinary incontinence 06/01/2016 Narcotic habituation, continuous 02/06/2016 Overview: See [place] Prescription Medication Program for multiple narcotic and [...] Recent Encounters Date Type Specialty Providers Description 09/09/2016 Office Visit Behavioral Health Margaret Peña Dx: Bipolar A, DO disorder with severe depression (Primary Dx) 09/01/2016 Surgery Psy ECT Service Yani Bundy, Canceled ECT-ECT TREATMENT-NO CONSENT NEEDED 08/29/2016 Surgery Psy ECT Service Silvano Mcbride-ECT MD Viktoria TREATMENT-NO CONSENT NEEDED 08/28/2016 Anesthesia Event Psy ECT Service Janice Nicole, RETORT SETTER 08/27/2016 Surgery Psy ECT Service Silvano Mcbride-ECT MD Viktoria TREATMENT-NO CONSENT NEEDED 08/26/2016 Anesthesia Event Psy ECT Service Roger Dent 08/25/2016 Surgery Psy ECT Service Ravi Lawrence MD ECT-ECT TREATMENT-NO CONSENT NEEDED 08/22/2016 Surgery Psy ECT Service Silvano Mcbride-ECT MD Viktoria TREATMENT-NO CONSENT NEEDED 08/21/2016 Anesthesia Event Psy ECT Service Christina Breen DDS 08/20/2016 Anesthesia Event Psy ECT Service Raegan Simpson, RETORT SETTER 08/20/2016 Anesthesia Event Psy ECT Service Sonu Barroso, RETORT SETTER 08/20/2016 Surgery Psy ECT Service Silvano Mcbride-ECT MD Viktoria TREATMENT-NO CONSENT NEEDED 08/18/2016 Surgery Psy ECT Service Yani Bundy ECT-ECT MD TREATMENT-NO CONSENT NEEDED 08/17/2016 Anesthesia Event Psy ECT Service Nicolas Perales CRNA 08/15/2016 Surgery Psy ECT Service Silvano Mcbride ECT-ECT MD Viktoria TREATMENT-NO CONSENT NEEDED 08/13/2016 Anesthesia Event Psy ECT Service Jay Thompson, ARPIT 08/13/2016 Anesthesia Event Psy ECT Service Thom Moore 08/13/2016 Surgery Psy ECT Service Margaret Peña ECT-ECT A, DO TREATMENT-NO CONSENT NEEDED 08/11/2016 Surgery Psy ECT Service Yani Bundy ECT-ECT TREATMENT-NO CONSENT NEEDED 08/09/2016 Surgery Radiology Radiologist, Rad Canceled IR Invasive PICC 08/08/2016 Anesthesia Event Psy ECT Service Polo Alarcon MD 08/08/2016 Surgery Psy ECT Service Silvano Mcbride ECT-INITIAL MD Viktoria TREATMENT 08/07/2016 Anesthesia Event Psy ECT Service Lexis Ortiz 08/05/2016 - Hospital Encounter Behavioral Health Nicolas Buckner, Dx: Suicidal risk 08/29/2016 Inpatient - Adult MD (Primary Dx) Silvano Mcbride MD Black, Donald W, MD Nam, Ki Won, MD Crocker, Erin, MD Himadi, Elaine, MD 08/04/2016 - Hospital Encounter General Care Mathew, Dx: Other urinary 08/05/2016 Inpatient - Adult MD Steve incontinence WilloughbyFareed, (Primary Dx) Nathaly Brown MD 08/04/2016 Telephone Internal Medicine - Roro Cheng Chief Comp: Primary MD Bere Consultation 07/28/2016 Office Visit Neurosurgery Mendez Aleman Chief Comp: Patient G, MD Reported Reason For Visit 07/28/2016 Nurse Triage General Care Yanira Wright Chief Comp: 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, 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 07/25/2016 Hospital Encounter Neurology Harley Wild MD Dx: Acute right-sided low back pain with sciatica, sciatica laterality unspecified (Primary Dx) 07/23/2016 - Hospital Encounter General Care Trip Casey, Dx: Weakness of 07/26/2016 Inpatient - Adult right lower [place], extremity (Primary Solo Hernandez MD Dx) Demetrio Joseph MD [place] Jayanna, Manju, MD Telfah, Mohammad A, MD Immunizations Name Dates Previously Given Next [...] Vital Sign Reading Time Taken Blood Pressure 95/59 08/29/2016 8:30 AM CDT Pulse 100 08/29/2016 8:30 AM CDT Temperature 35.8 C (96.4 F) 08/29/2016 5:55 AM CDT Respiratory Rate 17 08/29/2016 8:30 AM CDT Height 1.714 m (5' 7.48") 08/05/2016 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 Weight 144.1 kg (317 lb 10.9 oz) 08/28/2016 9:00 AM CDT Body Mass Index 49.05 08/28/2016 9:00 AM CDT Oxygen Saturation 98% 08/29/2016 8:30 AM CDT Plan of Care Date Type Specialty Providers Description 09/29/2016 Appointment Psychiatry Nila Tesfaye DO Chief Comp: Patient [address] [place] [address] [phone] (Fax) Health Maintenance Due Date Last Done Comments Hepatitis B Vaccine (1 of 3 - Primary Series) 1975 Tdap Vaccine 1988 MMR Vaccine 1995 Td Vaccine 1995 Pneumococcal Vaccine (1 of 1 - PPSV23) 1996 Cervical Cancer Screening 2007 05/10/2002 Influenza Vaccine: Seasonal (#1) 01/14/2016 08/25/2012 Lipid Disorder Screening 08/15/2021 08/15/2016 Procedures from Last 3 Months Procedure Name Priority Date/Time Associated Comments Diagnosis ECT-ECT TREATMENT-NO 08/29/2016 11:10 AM Bipolar disorder CONSENT NEEDED CDT with severe depression ABSTRACTED BY Routine 08/29/2016 8:10 AM Bipolar disorder Results for this BILLING STAFF CDT with severe procedure are in depression the results section. ECT-ECT TREATMENT-NO 08/27/2016 11:10 AM Bipolar disorder CONSENT NEEDED CDT with severe depression ABSTRACTED BY Routine 08/27/2016 8:03 AM Bipolar disorder Results for this BILLING STAFF CDT with severe procedure are in depression the results section. ECT-ECT TREATMENT-NO 08/25/2016 10:27 AM Bipolar disorder CONSENT NEEDED CDT with severe depression ABSTRACTED BY Routine 08/25/2016 8:43 AM Bipolar disorder Results for this BILLING STAFF CDT with severe procedure are in depression the results section. ECT-ECT TREATMENT-NO 08/22/2016 8:50 AM Bipolar disorder CONSENT NEEDED ENGINE DYNAMOMETER TESTER with severe depression ABSTRACTED BY Routine 08/22/2016 8:31 AM Bipolar disorder Results for this BILLING STAFF ENGINE DYNAMOMETER TESTER with severe procedure are in depression the results section. ECT-ECT TREATMENT-NO 08/20/2016 10:37 AM Bipolar disorder CONSENT NEEDED ENGINE DYNAMOMETER TESTER with severe depression ABSTRACTED BY Routine 08/20/2016 8:40 AM Bipolar disorder Results for this BILLING STAFF ENGINE DYNAMOMETER TESTER with severe procedure are in depression the results section. ECT-ECT TREATMENT-NO 08/18/2016 10:51 AM Bipolar disorder CONSENT NEEDED ENGINE DYNAMOMETER TESTER with severe depression ABSTRACTED BY Routine 08/18/2016 9:40 AM Bipolar disorder Results for this BILLING STAFF ENGINE DYNAMOMETER TESTER with severe procedure are in depression the results section. ABSTRACTED BY Routine 08/15/2016 9:32 AM Bipolar disorder Results for this BILLING STAFF ENGINE DYNAMOMETER TESTER with severe procedure are in depression the results section. ECT-ECT TREATMENT-NO 08/15/2016 8:10 AM Bipolar disorder CONSENT NEEDED ENGINE DYNAMOMETER TESTER with severe depression ECT-ECT TREATMENT-NO 08/13/2016 10:39 AM Bipolar disorder CONSENT NEEDED ENGINE DYNAMOMETER TESTER with severe depression ABSTRACTED BY Routine 08/13/2016 8:59 AM Bipolar disorder Results for this BILLING STAFF ENGINE DYNAMOMETER TESTER with severe procedure are in depression the results section. ECT-ECT TREATMENT-NO 08/11/2016 11:30 AM Bipolar disorder CONSENT NEEDED ENGINE DYNAMOMETER TESTER with severe depression ABSTRACTED BY Routine 08/11/2016 10:51 AM Bipolar disorder Results for this BILLING STAFF ENGINE DYNAMOMETER TESTER with severe procedure are in depression the results section. ABSTRACTED BY Routine 08/08/2016 3:41 PM Bipolar disorder Results for this BILLING STAFF ENGINE DYNAMOMETER TESTER with severe procedure are in depression the results section. ECT-INITIAL 08/08/2016 10:50 AM Bipolar disorder TREATMENT ENGINE DYNAMOMETER TESTER with severe depression Results from Last 3 Months PSY OR CASE (08/29/2016 8:10 AM) Narrative Silvano Mcbride MD 08/29/20168:10 AM OR CASE: ECT-ECT TREATMENT-NO CONSENT NEEDED Electroconvulsive Therapy Procedure Note Date of Procedure: 08/29/2016 Pre-Op Diagnosis Codes: * Bipolar disorder with severe depression [F31.4] Post-operative Diagnosis: same Attending Staff: Silvano Mcbride MD Resident/Fellow:None Indications: unresponsive to other therapy Medications: Current Facility-Administered Medications Medication Dose Route Frequency Provider Last Rate Last Dose acetaminophen (TYLENOL) tablet 650 mg650 mg Oral Q4H PRN Huy Brizuela MD 650 mg at 08/27/16 1342 aluminum-magnesium hydroxide-simethicone (MAALOX) liquid 30 mL 30 mL Oral Q4H PRN Huy Brizuela MD 30 mL at 08/17/16 1512 bisacodyl (DULCOLAX) enteric coated tablet 10 mg10 mg Oral 2X/Day PRN Nicolas Buckner MD bisacodyl (DULCOLAX) suppository 10 mg10 mg Rectal PRN Huy Brizuela MD cyclobenzaprine (FLEXERIL) tablet 10 mg10 mg Oral 3X/Day Huy Brizuela MD 10 mg at 08/28/162027 DULoxetine (CYMBALTA) delayed release capsule 60 mg60 mg Oral 2X/Day Huy Brizuela MD 60 mg at 08/28/162027 gabapentin (NEURONTIN) capsule 1,200 mg1,200 mg Oral 3X/Day Huy Brizuela MD 1,200 mg at 08/28/162027 glycopyrrolate (ROBINUL) 0.2 mg/mL injection 0.4 mg0.4 mg Intravenous ECT PRN Silvano Mcbride MD 0.4 mg at 08/27/16 0755 ibuprofen (MOTRIN) tablet 800 mg800 mg Oral Q6H PRN Huy Brizuela MD 800 mg at 08/28/16 1417 ketamine (KETALAR) 50 mg/mL injection 175 mg175 mg Intravenous ECT PRN Ravi Lawrence MD magnesium hydroxide (MILK OF MAGNESIA CONCENTRATE) 2,400 mg/10 mL liquid 10 mL10 mL Oral QHS PRN Nicolas Buckner MD 10 mL at 08/16/16 1627 metoPROLol (LOPRESSOR) 1 mg/mL injection 5 mg5 mg Intravenous ECT PRN Ravi Lawrence MD midazolam (PF) (VERSED) 1 mg/mL injection 1 mg1 mg Intravenous ECT PRN Ravi Lawrence MD 1 mg at 08/25/16 0818 nicotine (NICORETTE) gum 2 mg2 mg Oral Q2H PRN Huy Brizuela MD 2 mg at 08/25/16 1301 omega-3 fatty acids (lovaZA) capsule 1 g1 g Oral 2X/Day Huy Brizuela MD 1 g at 08/28/16 2030 omeprazole (PriLOSEC) enteric coated capsule 20 mg20 mg Oral Daily Nicolas Buckner MD 20 mg at 08/28/16 0749 polyethylene glycol 3350 (MIRALAX) packet 17 g17 g Oral QPM AC Nicolas Buckner MD 17 g at 08/21/16 1602 prazosin (MINIPRESS) capsule 3 mg3 mg Oral QHS Silvano Hawthorne MD 3 mg at 08/28/162028 QUEtiapine (SEROquel) tablet 100 mg100 mg Oral QHS PRN Gold Estrada MD 100 mg at 08/28/162033 QUEtiapine (SEROquel) tablet 25 mg25 mg Oral Q6H PRN Huy Brizuela MD 25 mg at 08/28/16 1846 sodium chloride 0.9% flush syringe 10 mL10 mL Intravenous PRN Huy Brizuela MD sodium chloride 0.9% flush syringe 20 mL20 mL Intravenous PRN Huy Brizuela MD succinylcholine (QUELICIN) 20 mg/mL injection 200 mg200 mg Intravenous ECT PRN Silvano Mcbride MD 200 mg at 08/27/16 0755 traZODone (DESYREL) tablet 250 mg250 mg Oral QHS Huy Brizuela MD 250 mg at 08/28/162028 Time Out Verification: Immediately prior to the start of the procedure an active 'time out' was performed by all members of the team. The patient was identified, consent was obtained, all members present agree on procedure to be performed, the correct electrode configuration was identified, and the availability of special equipment, supplies or devices was confirmed and safety precautions were reviewed. Description of Operation/Procedure: The risks, benefits, indications, potential complications, and alternatives were explained to the patient and/or family and informed consent obtained. Clinical Reminders: Severe back and neck pain History of multiple cervical and lumbar spinal surgeries with cervical rods in place Status: s/p tubal ligation Pulse width: 0.3 msec Frequency:60 hertz Duration:8 seconds Current: 900 milliamps Mill[place] 259.2 mC Adequate seizure? No Stimulus #2 Pulse width: 0.3 msec Frequency:90 hertz Duration:8 seconds Current: 900 milliamps [place] 81.3 mC Adequate seizure? No Stimulus #3 Pulse width: 0.31 msec Frequency:115 hertz Duration:8.0 seconds Current: 900 milliamps [place] 99.3 mC Adequate seizure? No - failed seizure Previously "Inpatient team was asked to double check her allergic list as she has been given ibuprofen while ketorolac is on her allergic list." Induction Medications: 1. Ketamine 175 mg AND Nitrous Oxide 2. Succinylcholine 200 mg 3. Glycopyrrolate 0.4 mg 4. Metoprolol 5 mg 5. Post-ECT: Midazolam 1 mg (d/t ketamine use) Series type: index Treatment number: 10 Electrode placement: right unilateral Seizure duration (objective): 0 seconds Seizure duration (EEG): 0 seconds Depression (0=good, 10=poor): 2 Memory: Pretty good - recites most of her induction meds and doses from memory Physical Exam: BP 174/113 mmHg | Pulse 102 | Temp(Src) 35.8 C (96.4 F) (Tympanic) | Resp 16 | Ht 1.714 m (5' 7.48") | Wt 144.1 kg (317 lb 10.9 oz) | BMI 49.05 kg/m2 | SpO2 99% | LMP 06/15/2016 General appearance: alert, cooperative, no distress, appears stated age Back: no tenderness to percussion or palpation Lungs: clear to auscultation bilaterally Heart: regular rate and rhythm, S1, S2 normal, no murmur, click, rub or gallop Abdomen: soft, non-tender. Bowel sounds normal. No masses,no organomegaly Complaints following last treatment:Hallucinations mp, headaches yes, and neck and back aches, chronic, nausea no Complications:The patient did tolerate the procedure well and complications were noted as: failed seizure. The patient was then transported to the recovery area. Plan: Discharge instructions were provided. Conditions for next treatment:Patient has completed today.If any further treatments planned will need to carefully evaluate other meds being taken, especially gabapentin Teaching Statement: Silvano Mcbride MD was present for the entire procedure. Resident:None Silvano Mcbride MD Associate (clinical) registered dental assistant rda DIFFERENTIAL (08/27/2016 8:59 AM) Component Value Range % Neutrophils-Auto Diff 63.2 % Neutrophils-Auto Diff 2960 5848-6087 /MM3 % Lymphocytes-Auto Diff 25.0 % Lymphocytes-Auto Diff 9729 197-6474 /MM3 % Monocytes-Auto Diff 5.6 % Monocytes-Auto Diff 260 130-860 /MM3 % Eosinophils-Auto Diff 4.9 % Eosinophils-Auto Diff 230 40-390 /MM3 % Basophils 1.1 % Basophils-Auto Diff 50 10-136 /MM3 % Immature Granulocytes-Auto Diff 0.2 % Immature Granulocytes-Auto Diff 10 /MM3 Specimen Whole Blood CBC (COMPLETE BLOOD COUNT) (08/27/2016 8:59 AM) Component Value Range WBC Count 4.7 3.7-10.5 K/MM3 RBC Count 3.95(L) 4.00-5.20 M/MM3 Hemoglobin 12.4 11.9-15.5 g/dL Hematocrit 38 35-47 % MCV (Mean Corpuscular Volume) 97 82-99 FL MCH (Mean Corpuscular Hemoglobin) 31 25-35 PG MCHC (Mean Corpuscular Hemoglobin Concentration) 32 32-36 % Platelet Count 321 150-400 K/MM3 MPV (Mean Platelet Volume) 10.9 9.4-12.3 FL RBC Dist Width-STD 49.5(H) 36.4-46.3 FL RBC Distrib Width 13.8 9.0-14.5 % Nucleated RBC 0 /100 WBC Specimen Whole Blood CBC WITH DIFFERENTIAL (08/27/2016 8:59 AM) Specimen Whole Blood Narrative The following orders were created for panel order CBC WITH DIFFERENTIAL. Procedure Abnormality Status --------- ------ CBC (COMPLETE BLOOD COUNT)[[id number]] AbnormalFinal result DIFFERENTIAL[[id number]] Final result Please view results for these tests on the individual orders. PSY OR CASE (08/27/2016 8:03 AM) Narrative Silvano Mcbride MD 08/27/20168:03 AM OR CASE: ECT-ECT TREATMENT-NO CONSENT NEEDED Electroconvulsive Therapy Procedure Note Date of Procedure: 08/27/2016 Pre-Op Diagnosis Codes: * Bipolar disorder with severe depression [F31.4] Post-operative Diagnosis: same Attending Staff: Silvano Mcbirde MD Resident/Fellow:None Indications: unresponsive to other therapy Medications: Current Facility-Administered Medications Medication Dose Route Frequency Provider Last Rate Last Dose acetaminophen (TYLENOL) tablet 650 mg650 mg Oral Q4H PRN Huy Brizuela MD 650 mg at 08/26/16 1627 aluminum-magnesium hydroxide-simethicone (MAALOX) liquid 30 mL 30 mL Oral Q4H PRN Huy Brizuela MD 30 mL at 08/17/16 1512 bisacodyl (DULCOLAX) enteric coated tablet 10 mg10 mg Oral 2X/Day PRN Nicolas Buckner MD bisacodyl (DULCOLAX) suppository 10 mg10 mg Rectal PRN Huy Brizuela MD cyclobenzaprine (FLEXERIL) tablet 10 mg10 mg Oral 3X/Day Huy Brizuela MD 10 mg at 08/26/162014 DULoxetine (CYMBALTA) delayed release capsule 60 mg60 mg Oral 2X/Day Huy Brizuela MD 60 mg at 08/26/162014 gabapentin (NEURONTIN) capsule 1,200 mg1,200 mg Oral 3X/Day Huy Brizuela MD 1,200 mg at 08/26/162014 glycopyrrolate (ROBINUL) 0.2 mg/mL injection 0.4 mg0.4 mg Intravenous ECT PRN Silvano Mcbride MD 0.4 mg at 08/25/16 0818 ibuprofen (MOTRIN) tablet 800 mg800 mg Oral Q6H PRN Huy Brizuela MD 800 mg at 08/26/162015 ketamine (KETALAR) 50 mg/mL injection 175 mg175 mg Intravenous ECT PRN Ravi Lawrence MD magnesium hydroxide (MILK OF MAGNESIA CONCENTRATE) 2,400 mg/10 mL liquid 10 mL10 mL Oral QHS PRN Nicolas Buckner MD 10 mL at 08/16/16 1627 metoPROLol (LOPRESSOR) 1 mg/mL injection 5 mg5 mg Intravenous ECT PRN Ravi Lawrence MD midazolam (PF) (VERSED) 1 mg/mL injection 1 mg1 mg Intravenous ECT PRN Ravi Lawrence MD 1 mg at 08/25/16 0818 nicotine (NICORETTE) gum 2 mg2 mg Oral Q2H PRN Huy Brizuela MD 2 mg at 08/25/16 1301 omega-3 fatty acids (lovaZA) capsule 1 g1 g Oral 2X/Day Huy Brizuela MD 1 g at 08/26/162014 omeprazole (PriLOSEC) enteric coated capsule 20 mg20 mg Oral Daily Nicolas Buckner MD 20 mg at 08/26/16 0749 polyethylene glycol 3350 (MIRALAX) packet 17 g17 g Oral QPM AC Nicolas Buckner MD 17 g at 08/21/16 1602 prazosin (MINIPRESS) capsule 3 mg3 mg Oral QHS Silvano Hawthorne MD 3 mg at 08/26/162015 QUEtiapine (SEROquel) tablet 25 mg25 mg Oral Q6H PRN Huy Brizuela MD 25 mg at 08/26/16 1632 QUEtiapine (SEROquel) tablet 50 mg50 mg Oral QHS PRN Nicolas Buckner MD 50 mg at 08/26/16 2125 sodium chloride 0.9% flush syringe 10 mL10 mL Intravenous PRN Huy Brizuela MD sodium chloride 0.9% flush syringe 20 mL20 mL Intravenous PRN Huy Brizuela MD succinylcholine (QUELICIN) 20 mg/mL injection 200 mg200 mg Intravenous ECT PRN Silvano Mcbride MD 200 mg at 08/25/16 0818 traZODone (DESYREL) tablet 100 mg100 mg Oral QHS PRN Silvano Hawthorne MD 100 mg at 08/17/165 traZODone (DESYREL) tablet 250 mg250 mg Oral QHS Huy Brizuela MD 250 mg at 08/26/162015 Time Out Verification: Immediately prior to the start of the procedure an active 'time out' was performed by all members of the team. The patient was identified, consent was obtained, all members present agree on procedure to be performed, the correct electrode configuration was identified, and the availability of special equipment, supplies or devices was confirmed and safety precautions were reviewed. Description of Operation/Procedure: The risks, benefits, indications, potential complications, and alternatives were explained to the patient and/or family and informed consent obtained. Clinical Reminders: Place BP cuff on forearm Severe back and neck pain History of multiple cervical and lumbar spinal surgeries with cervical rods in place Status: s/p tubal ligation Pulse width: 0.3 msec Frequency:60 hertz Duration:8 seconds Current: 900 milliamps Mill[place] 259.2 mC Adequate seizure? Yes Previously "Inpatient team was asked to double check her allergic list as she has been given ibuprofen while ketorolac is on her allergic list." Induction Medications: 1. Ketamine 175 mg AND Nitrous Oxide 2. Succinylcholine 200 mg 3. Glycopyrrolate 0.4 mg 4. Metoprolol 5 mg 5. Post-ECT: Midazolam 1 mg (d/t ketamine use) Series type: index Treatment number: 9 Electrode placement: right unilateral Seizure duration (objective): 24 seconds Seizure duration (EEG): 24 seconds Depression (0=good, 10=poor): 4 Memory: 'pretty good" Physical Exam: BP 152/96 mmHg | Pulse 95 | Temp(Src) 36.4 C (97.5 F) (Tympanic) | Resp 15 | Ht 1.714 m (5' 7.48") | Wt 148.2 kg (326 lb 11.6 oz) | BMI 50.45 kg/m2 | SpO2 97% | LMP 06/15/2016 General appearance: alert, cooperative, no distress, appears stated age Back: no tenderness to percussion or palpation Lungs: clear to auscultation bilaterally Heart: regular rate and rhythm, S1, S2 normal, no murmur, click, rub or gallop Abdomen: soft, non-tender. Bowel sounds normal. No masses,no organomegaly Complaints following last treatment:Hallucinations no, headaches no, nausea no Complications:The patient did tolerate the procedure well and no complications were noted. The patient was then transported to the recovery area. Plan: Discharge instructions were provided. Conditions for next treatment:same Teaching Statement: Silvano Mcbride MD was present for the entire procedure. Resident:None Silvano Mcbride MD Associate (clinical) registered dental assistant rda PSY OR CASE (08/25/2016 8:43 AM) Narrative Ravi Lawrence MD 08/25/20168:43 AM OR CASE: ECT-ECT TREATMENT-NO CONSENT NEEDED Electroconvulsive Therapy Procedure Note Date of Procedure: 08/25/2016 Pre-Op Diagnosis Codes: * Bipolar disorder with severe depression [F31.4] Post-operative Diagnosis: same Attending Staff: Ravi Lawrence MD Resident/Fellow:None Indications: unresponsive to other therapy Medications: Current Facility-Administered Medications Medication Dose Route Frequency Provider Last Rate Last Dose acetaminophen (TYLENOL) tablet 650 mg650 mg Oral Q4H PRN uHy Brizuela MD 650 mg at 08/24/16 1659 aluminum-magnesium hydroxide-simethicone (MAALOX) liquid 30 mL 30 mL Oral Q4H PRN Huy Brizuela MD 30 mL at 08/17/16 1512 bisacodyl (DULCOLAX) enteric coated tablet 10 mg10 mg Oral 2X/Day PRN Nicolas Buckner MD bisacodyl (DULCOLAX) suppository 10 mg10 mg Rectal PRN Huy Brizuela MD cyclobenzaprine (FLEXERIL) tablet 10 mg10 mg Oral 3X/Day Huy Brizuela MD 10 mg at 08/24/162105 DULoxetine (CYMBALTA) delayed release capsule 60 mg60 mg Oral 2X/Day Huy Brizuela MD 60 mg at 08/24/162105 gabapentin (NEURONTIN) capsule 1,200 mg1,200 mg Oral 3X/Day Huy Brizuela MD 1,200 mg at 08/24/162105 glycopyrrolate (ROBINUL) 0.2 mg/mL injection 0.4 mg0.4 mg Intravenous ECT PRN Silvano Mcbride MD 0.4 mg at 08/22/16 0816 ibuprofen (MOTRIN) tablet 800 mg800 mg Oral Q6H PRN Huy Brizuela MD 800 mg at 08/24/162105 ketamine (KETALAR) 50 mg/mL injection 225 mg225 mg Intravenous ECT PRN Yani Bundy MD magnesium hydroxide (MILK OF MAGNESIA CONCENTRATE) 2,400 mg/10 mL liquid 10 mL10 mL Oral QHS PRN Nicolas Buckner MD 10 mL at 08/16/16 1627 metoPROLol (LOPRESSOR) 1 mg/mL injection 4 mg4 mg Intravenous ECT PRN Ravi Lawrence MD 4 mg at 08/22/16 0816 midazolam (PF) (VERSED) 1 mg/mL injection 1 mg1 mg Intravenous ECT PRN Ravi Lawrence MD 1 mg at 08/22/16 0816 nicotine (NICORETTE) gum 2 mg2 mg Oral Q2H PRN Huy Brizuela MD 2 mg at 08/23/16 1613 omega-3 fatty acids (lovaZA) capsule 1 g1 g Oral 2X/Day Huy Brizuela MD 1 g at 08/24/162104 omeprazole (PriLOSEC) enteric coated capsule 20 mg20 mg Oral Daily Nicolas Buckner MD 20 mg at 08/24/16 0759 polyethylene glycol 3350 (MIRALAX) packet 17 g17 g Oral QPM AC Nicolas Buckner MD 17 g at 08/21/16 1602 prazosin (MINIPRESS) capsule 3 mg3 mg Oral QHS Silvano Hawthorne MD 3 mg at 08/24/162104 QUEtiapine (SEROquel) tablet 25 mg25 mg Oral Q6H PRN Huy Brizuela MD 25 mg at 08/24/16 1443 QUEtiapine (SEROquel) tablet 50 mg50 mg Oral QHS PRN Nicolas Buckner MD sodium chloride 0.9% flush syringe 10 mL10 mL Intravenous PRN Huy Brizuela MD sodium chloride 0.9% flush syringe 20 mL20 mL Intravenous PRN Huy Brizuela MD succinylcholine (QUELICIN) 20 mg/mL injection 200 mg200 mg Intravenous ECT PRN Silvano Mcbride MD 200 mg at 08/22/16 0816 traZODone (DESYREL) tablet 100 mg100 mg Oral QHS PRN Silvano Hawthorne MD 100 mg at 08/17/16 2045 traZODone (DESYREL) tablet 250 mg250 mg Oral QHS Huy Brizuela MD 250 mg at 08/24/162104 Time Out Verification: Immediately prior to the start of the procedure an active 'time out' was performed by all members of the team. The patient was identified, consent was obtained, all members present agree on procedure to be performed, the correct electrode configuration was identified, and the availability of special equipment, supplies or devices was confirmed and safety precautions were reviewed. Description of Operation/Procedure: The risks, benefits, indications, potential complications, and alternatives were explained to the patient and/or family and informed consent obtained. Clinical Reminders: Place BP cuff on forearm Severe back and neck pain History of multiple cervical and lumbar spinal surgeries with cervical rods in place Status: s/p tubal ligation Pulse width: 0.3 msec Frequency:60 hertz Duration:8 seconds Current: 900 milliamps Mill[place] 259.2 mC Adequate seizure? Yes Previously "Inpatient team was asked to double check her allergic list as she has been given ibuprofen while ketorolac is on her allergic list." Induction Medications: 1. Ketamine 175 mg AND Nitrous Oxide 2. Succinylcholine 200 mg 3. Glycopyrrolate 0.4 mg 4. Metoprolol 4 mg 5. Post-ECT: Midazolam 1 mg (d/t ketamine use) ++ (Medications added during session) Labetalol 2.5 mg Series type: index Treatment number: 8 Electrode placement: right unilateral Seizure duration (objective): 22 seconds Seizure duration (EEG): 22 seconds Depression (0=good, 10=poor): "40%" improvement Memory: No problem - able to read books without a problem Physical Exam: Lungs: clear to auscultation bilaterally Heart: regular rate and rhythm, S1, S2 normal, no murmur, click, rub or gallop Abdomen: soft, non-tender. Bowel sounds normal. No masses,no organomegaly Complaints following last treatment:Hallucinations no, headaches no, nausea no Complications:The patient did tolerate the procedure well and no complications were noted. The patient was then transported to the recovery area. Plan: Discharge instructions were provided. Conditions for next treatment: Increase metoprolol to 5 mg. Teaching Statement: Dr. Ravi Lawrence was present for the entire procedure. Resident:None Ravi Lawrence MD Marketing Content Specialist, Psychiatry PSY OR CASE (08/22/2016 8:31 AM) Silvano Elliott MD 08/22/20168:31 AM OR CASE: ECT-ECT TREATMENT-NO CONSENT NEEDED Electroconvulsive Therapy Procedure Note Date of Procedure: 08/22/2016 Pre-Op Diagnosis Codes: * Bipolar disorder with severe depression [F31.4] Post-operative Diagnosis: same Attending Staff: Silvano Mcbride MD Resident/Fellow:None Indications: unresponsive to other therapy Medications: Current Facility-Administered Medications Medication Dose Route Frequency Provider Last Rate Last Dose acetaminophen (TYLENOL) tablet 650 mg650 mg Oral Q4H PRN Huy Brizuela MD 650 mg at 08/20/16 0927 aluminum-magnesium hydroxide-simethicone (MAALOX) liquid 30 mL 30 mL Oral Q4H PRN Huy Brizuela MD 30 mL at 08/17/16 1512 bisacodyl (DULCOLAX) enteric coated tablet 10 mg10 mg Oral 2X/Day PRN Nicolas Buckner MD bisacodyl (DULCOLAX) suppository 10 mg10 mg Rectal PRN Huy Brizuela MD cyclobenzaprine (FLEXERIL) tablet 10 mg10 mg Oral 3X/Day Huy Brizuela MD 10 mg at 08/21/162049 DULoxetine (CYMBALTA) delayed release capsule 60 mg60 mg Oral 2X/Day Huy Brizuela MD 60 mg at 08/21/162049 gabapentin (NEURONTIN) capsule 1,200 mg1,200 mg Oral 3X/Day Huy Brizuela MD 1,200 mg at 08/21/162049 glycopyrrolate (ROBINUL) 0.2 mg/mL injection 0.4 mg0.4 mg Intravenous ECT PRN Silvano Mcbride MD 0.4 mg at 08/22/16 0816 ibuprofen (MOTRIN) tablet 600 mg600 mg Oral Q6H PRN Huy Brizuela MD 600 mg at 08/21/16 0956 ketamine (KETALAR) 50 mg/mL injection 225 mg225 mg Intravenous ECT PRN Yani Bundy MD magnesium hydroxide (MILK OF MAGNESIA CONCENTRATE) 2,400 mg/10 mL liquid 10 mL10 mL Oral QHS PRN Nicolas Buckner MD 10 mL at 08/16/16 1627 metoPROLol (LOPRESSOR) 1 mg/mL injection 4 mg4 mg Intravenous ECT PRN Ravi Lawrence MD 4 mg at 08/22/16 0816 midazolam (PF) (VERSED) 1 mg/mL injection 1 mg1 mg Intravenous ECT PRN Ravi Lawrence MD 1 mg at 08/22/16 0816 nicotine (NICORETTE) gum 2 mg2 mg Oral Q2H PRN Huy Brizuela MD 2 mg at 08/19/16 1721 omega-3 fatty acids (lovaZA) capsule 1 g1 g Oral 2X/Day Huy Brizuela MD 1 g at 08/21/162049 omeprazole (PriLOSEC) enteric coated capsule 20 mg20 mg Oral Daily Nicolas Buckner MD 20 mg at 08/21/16 0752 polyethylene glycol 3350 (MIRALAX) packet 17 g17 g Oral QPM AC Nicolas Buckner MD 17 g at 08/21/16 1602 prazosin (MINIPRESS) capsule 3 mg3 mg Oral QHS Silvano Hawthorne MD 3 mg at 08/21/162049 QUEtiapine (SEROquel) tablet 25 mg25 mg Oral Q6H PRN Huy Brizuela MD 25 mg at 08/21/16 1603 QUEtiapine (SEROquel) tablet 50 mg50 mg Oral QHS PRN Nicolas Buckner MD sodium chloride 0.9% flush syringe 10 mL10 mL Intravenous PRN Huy Brizuela MD sodium chloride 0.9% flush syringe 20 mL20 mL Intravenous PRN Huy Brizuela MD succinylcholine (QUELICIN) 20 mg/mL injection 200 mg200 mg Intravenous ECT PRN Silvano Mcbride MD 200 mg at 08/22/16 0816 traZODone (DESYREL) tablet 100 mg100 mg Oral QHS PRN Silvano Hawthorne MD 100 mg at 08/17/16 2045 traZODone (DESYREL) tablet 250 mg250 mg Oral QHS Huy Brizuela MD 250 mg at 08/21/162049 Time Out Verification: Immediately prior to the start of the procedure an active 'time out' was performed by all members of the team. The patient was identified, consent was obtained, all members present agree on procedure to be performed, the correct electrode configuration was identified, and the availability of special equipment, supplies or devices was confirmed and safety precautions were reviewed. Description of Operation/Procedure: The risks, benefits, indications, potential complications, and alternatives were explained to the patient and/or family and informed consent obtained. Clinical Reminders: Place BP cuff on forearm Severe back and neck pain History of multiple cervical and lumbar spinal surgeries with cervical rods in place Status: s/p tubal ligation Pulse width: 0.3 msec Frequency:60 hertz Duration:8 seconds Current: 900 milliamps [place] 259.2 mC Adequate seizure? Yes Previously "Inpatient team was asked to double check her allergic list as she has been given ibuprofen while ketorolac is on her allergic list." Induction Medications: 1. Ketamine 175 mg AND Nitrous Oxide 2. Succinylcholine 200 mg 3. Glycopyrrolate 0.4 mg 4. Metoprolol 4 mg 5. Post-ECT: Midazolam 1 mg (d/t ketamine use) Series type: index Treatment number: 7 Electrode placement: right unilateral Seizure duration (objective): ? seconds Seizure duration (EEG): 43 seconds Depression (0=good, 10=poor): 5 ("it was 10 when I started") Memory: 0 (recites the five objects she had memorized on the original MOCA from memory) Physical Exam: BP 165/86 mmHg | Pulse 84 | Temp(Src) 35.2 C (95.4 F) (Tympanic) | Resp 12 | Ht 1.714 m (5' 7.48") | Wt 148.2 kg (326 lb 11.6 oz) | BMI 50.45 kg/m2 | SpO2 100% | LMP 06/15/2016 General appearance: alert, cooperative, no distress, appears stated age, morbidly obese Back: no tenderness to percussion or palpation Lungs: clear to auscultation bilaterally Heart: regular rate and rhythm, S1, S2 normal, no murmur, click, rub or gallop Abdomen: soft, non-tender. Bowel sounds normal. No masses,no organomegaly Complaints following last treatment:Hallucinations no, headaches mild, nausea no -- also neck and back pain Complications:The patient did tolerate the procedure well and no complications were noted. The patient was then transported to the recovery area. Plan: Discharge instructions were provided. Conditions for next treatment:same Teaching Statement: Silvano Mcbride MD was present for the entire procedure. Resident:None Silvano Mcbride MD Associate (clinical) registered dental assistant rda PSY OR CASE (08/20/2016 8:40 AM) Narrative Ravi Lawrence MD 08/20/20168:40 AM OR CASE: ECT-ECT TREATMENT-NO CONSENT NEEDED Electroconvulsive Therapy Procedure Note Date of Procedure: 08/20/2016 Pre-Op Diagnosis Codes: * Bipolar disorder with severe depression [F31.4] Post-operative Diagnosis: same Attending Staff: Ravi Lawrence MD Resident/Fellow:None Indications: unresponsive to other therapy Medications: Current Facility-Administered Medications Medication Dose Route Frequency Provider Last Rate Last Dose acetaminophen (TYLENOL) tablet 650 mg650 mg Oral Q4H PRN Huy Brizuela MD 650 mg at 08/19/16 1342 aluminum-magnesium hydroxide-simethicone (MAALOX) liquid 30 mL 30 mL Oral Q4H PRN Huy Brizuela MD 30 mL at 08/17/16 1512 bisacodyl (DULCOLAX) enteric coated tablet 10 mg10 mg Oral 2X/Day PRN Nicolas Buckner MD bisacodyl (DULCOLAX) suppository 10 mg10 mg Rectal PRN Huy Brizuela MD cyclobenzaprine (FLEXERIL) tablet 10 mg10 mg Oral 3X/Day PRN Huy Brizuela MD 10 mg at 08/19/16 1721 DULoxetine (CYMBALTA) delayed release capsule 60 mg60 mg Oral 2X/Day Huy Brizuela MD 60 mg at 08/19/162003 gabapentin (NEURONTIN) capsule 1,200 mg1,200 mg Oral 3X/Day Huy Brizuela MD 1,200 mg at 08/19/162002 glycopyrrolate (ROBINUL) 0.2 mg/mL injection 0.4 mg0.4 mg Intravenous ECT PRN Silvano Mcbride MD 0.4 mg at 08/15/16 0907 ibuprofen (MOTRIN) tablet 600 mg600 mg Oral Q6H PRN Huy Brizuela MD 600 mg at 08/17/16 0847 ketamine (KETALAR) 50 mg/mL injection 225 mg225 mg Intravenous ECT PRN Yani Bundy MD magnesium hydroxide (MILK OF MAGNESIA CONCENTRATE) 2,400 mg/10 mL liquid 10 mL10 mL Oral QHS PRN Nicolas Buckner MD 10 mL at 08/16/16 1627 metoPROLol (LOPRESSOR) 1 mg/mL injection 2.5 mg2.5 mg Intravenous ECT PRN Yani Bundy MD 2.5 mg at 08/18/16 0922 midazolam (PF) (VERSED) 1 mg/mL injection 1 mg1 mg Intravenous ECT PRN Ravi Lawrence MD 1 mg at 08/13/16 0852 nicotine (NICORETTE) gum 2 mg2 mg Oral Q2H PRN Huy Brizuela MD 2 mg at 08/19/16 1721 omega-3 fatty acids (lovaZA) capsule 1 g1 g Oral 2X/Day Huy Brizuela MD 1 g at 08/19/162002 omeprazole (PriLOSEC) enteric coated capsule 20 mg20 mg Oral Daily Nicolas Buckner MD 20 mg at 08/19/16 1339 polyethylene glycol 3350 (MIRALAX) packet 17 g17 g Oral QPM AC Nicolas Buckner MD 17 g at 08/15/16 1730 prazosin (MINIPRESS) capsule 3 mg3 mg Oral QHS Silvano Hawthorne MD 3 mg at 08/19/162003 QUEtiapine (SEROquel) tablet 25 mg25 mg Oral Q6H PRN Huy Brizuela MD 25 mg at 08/19/16 1426 QUEtiapine (SEROquel) tablet 50 mg50 mg Oral QHS PRN Nicolas Buckner MD sodium chloride 0.9% flush syringe 10 mL10 mL Intravenous PRN Huy Brizuela MD sodium chloride 0.9% flush syringe 20 mL20 mL Intravenous PRN Huy Brizuela MD succinylcholine (QUELICIN) 20 mg/mL injection 200 mg200 mg Intravenous ECT PRN Silvano Mcbride MD 200 mg at 08/15/16 0907 traZODone (DESYREL) tablet 100 mg100 mg Oral QHS PRN Silvano Hawthorne MD 100 mg at 08/17/16 2045 traZODone (DESYREL) tablet 250 mg250 mg Oral QHS Huy Brizuela MD 250 mg at 08/19/162002 Time Out Verification: Immediately prior to the start of the procedure an active 'time out' was performed by all members of the team. The patient was identified, consent was obtained, all members present agree on procedure to be performed, the correct electrode configuration was identified, and the availability of special equipment, supplies or devices was confirmed and safety precautions were reviewed. Description of Operation/Procedure: The risks, benefits, indications, potential complications, and alternatives were explained to the patient and/or family and informed consent obtained. Clinical Reminders: Place BP cuff on forearm Severe back and neck pain History of multiple cervical and lumbar spinal surgeries with cervical rods in place Status: s/p tubal ligation Pulse width: 0.3 msec Frequency:60 hertz Duration:8 seconds Current: 900 milliamps [place] 259.2 mC Adequate seizure? Yes Previously "Inpatient team was asked to double check her allergic list as she has been given ibuprofen while ketorolac is on her allergic list." Induction Medications: 1. Ketamine 175 mg AND Nitrous Oxide 2. Succinylcholine 200 mg 3. Glycopyrrolate 0.4 mg 4. Metoprolol 2.5 mg 5. Post-ECT: Midazolam 1 mg (d/t ketamine use) Series type: index Treatment number: 6 Electrode placement: right unilateral Seizure duration (objective): 18 seconds Seizure duration (EEG): 23 seconds Depression (0=good, 10=poor): "better/improving" Memory: No problem Physical Exam: Lungs: clear to auscultation bilaterally Heart: regular rate and rhythm, S1, S2 normal, no murmur, click, rub or gallop Abdomen: soft, non-tender. Bowel sounds normal. No masses,no organomegaly Complaints following last treatment:Hallucinations no, headaches no, nausea no Complications:The patient did tolerate the procedure well and no complications were noted. The patient was then transported to the recovery area. Plan: Discharge instructions were provided. Conditions for next treatment: Increase metoprolol to 4 mg. Teaching Statement: Dr. Ravi Lawrence was present for the entire procedure. Resident:None Ravi Lawrence MD Marketing Content Specialist, Psychiatry PSY OR CASE (08/18/2016 9:40 AM) Yani Ramirez MD 08/18/20169:40 AM OR CASE: ECT-ECT TREATMENT-NO CONSENT NEEDED Electroconvulsive Therapy Procedure Note Date of Procedure: 08/18/2016 Pre-Op Diagnosis Codes: * Bipolar disorder with severe depression [F31.4] Post-operative Diagnosis: same Attending Staff: Yani Bundy MD Resident/Fellow:None Indications: unresponsive to other therapy Medications: Current Facility-Administered Medications Medication Dose Route Frequency Provider Last Rate Last Dose acetaminophen (TYLENOL) tablet 650 mg650 mg Oral Q4H PRN Huy Brizuela MD 650 mg at 08/14/16 1937 aluminum-magnesium hydroxide-simethicone (MAALOX) liquid 30 mL 30 mL Oral Q4H PRN Huy Brizuela MD bisacodyl (DULCOLAX) suppository 10 mg10 mg Rectal PRN Huy Brizuela MD cyclobenzaprine (FLEXERIL) tablet 10 mg10 mg Oral 3X/Day PRN Huy Brizuela MD 10 mg at 08/14/16 214 DULoxetine (CYMBALTA) delayed release capsule 60 mg60 mg Oral 2X/Day Huy Brizuela MD 60 mg at 08/15/16 1039 gabapentin (NEURONTIN) capsule 1,200 mg1,200 mg Oral 3X/Day Huy Brizuela MD 1,200 mg at 08/15/16 1039 glycopyrrolate (ROBINUL) 0.2 mg/mL injection 0.4 mg0.4 mg Intravenous ECT PRN Silvano Mcbride MD 0.4 mg at 08/15/16 0907 ibuprofen (MOTRIN) tablet 600 mg600 mg Oral Q6H PRN Huy Brizuela MD 600 mg at 08/15/16 1037 ketamine (KETALAR) 50 mg/mL injection 225 mg225 mg Intravenous ECT PRN Yani Bundy MD magnesium hydroxide (MILK OF MAGNESIA CONCENTRATE) 2,400 mg/10 mL liquid 10 mL10 mL Oral QHS PRN Huy Brizuela MD metoPROLol (LOPRESSOR) 1 mg/mL injection 2.5 mg2.5 mg Intravenous ECT PRN Yani Bundy MD 2.5 mg at 08/15/16 0933 midazolam (PF) (VERSED) 1 mg/mL injection 1 mg1 mg Intravenous ECT PRN Ravi Lawrence MD 1 mg at 08/13/16 0852 nicotine (NICORETTE) gum 2 mg2 mg Oral Q2H PRN Huy Brizuela MD 2 mg at 08/07/16 0929 polyethylene glycol 3350 (MIRALAX) packet 17 g17 g Oral QPM AC Nicolas Buckner MD prazosin (MINIPRESS) capsule 3 mg3 mg Oral QHS Silvano Hawthorne MD 3 mg at 08/14/16 214 QUEtiapine (SEROquel) tablet 100 mg100 mg Oral QHS Huy Brizuela MD 100 mg at 08/14/162141 QUEtiapine (SEROquel) tablet 25 mg25 mg Oral Q6H PRN Huy Brizuela MD sodium chloride 0.9% flush syringe 10 mL10 mL Intravenous PRN Huy Brizuela MD sodium chloride 0.9% flush syringe 20 mL20 mL Intravenous PRN Huy Brizuela MD succinylcholine (QUELICIN) 20 mg/mL injection 200 mg200 mg Intravenous ECT PRN Silvano Mcbride MD 200 mg at 08/15/16 0907 traZODone (DESYREL) tablet 100 mg100 mg Oral QHS PRN Silvano Hawthorne MD 100 mg at 08/06/162147 Time Out Verification: Immediately prior to the start of the procedure an active 'time out' was performed by all members of the team. The patient was identified, consent was obtained, all members present agree on procedure to be performed, the correct electrode configuration was identified, and the availability of special equipment, supplies or devices was confirmed and safety precautions were reviewed. Description of Operation/Procedure: The risks, benefits, indications, potential complications, and alternatives were explained to the patient and/or family and informed consent obtained. Clinical Reminders: Place BP cuff on forearm Severe back and neck pain History of multiple cervical and lumbar spinal surgeries with cervical rods in place Status: s/p tubal ligation Pulse width: 0.3 msec Frequency:60 hertz Duration:8 seconds Current: 900 milliamps [place] 259.2 mC Adequate seizure? Yes Previously "Inpatient team was asked to double check her allergic list as she has been given ibuprofen while ketorolac is on her allergic list." Induction Medications: 1. Ketamine 225 mg (175 mg given on 08/18/16 + nitrous oxide per anesthesia) 2. Succinylcholine 200 mg 3. Glycopyrrolate 0.4 mg 4. Metoprolol 2.5 mg 5. Post-ECT: Midazolam 1 mg (d/t ketamine use) Series type: index Treatment number: 5 Electrode placement: right unilateral Seizure duration (objective): 22 seconds Seizure duration (EEG): 23 seconds Depression (0=good, 10=poor): 6 or 7 Memory: 2 Physical Exam: BP 107/76 mmHg | Pulse 93 | Temp(Src) 37 C (98.6 F) (Tympanic) | Resp 16 | Ht 1.714 m (5' 7.48") | Wt 140.9 kg (310 lb 10.1 oz) | BMI 47.96 kg/m2 | SpO2 97% | LMP 06/15/2016 General appearance: alert, cooperative, no distress Lungs: clear to auscultation bilaterally Heart: regular rate and rhythm, S1, S2 normal, no murmur, click, rub or gallop Complaints following last treatment:Hallucinations denies, headaches slight and responded well to prn medications on the unit, nausea denies Complications:The patient did tolerate the procedure well and no complications were noted. The patient was then transported to the recovery area. Plan: Discharge instructions were provided. Conditions for next treatment:No change to current medication orders (keep ketamine 225 mg). Teaching Statement: Yani Bundy MD was present for the entire procedure. Resident:None Yani Bundy MD Cable Armorer (clinical) registered dental assistant rda ECG - EKG 12 LEAD (08/15/2016 2:29 PM) Component Value Range ECG SEVERITY - NORMAL ECG - VENT. RATE 75 bpm RR 800 ms P-R INTERVAL 156 ms QRSD INTERVAL 80 ms QT INTERVAL 364 ms QTC INTERVAL 407 ms P AXIS 31 degrees QRS AXIS 39 degrees T WAVE AXIS 67 degrees REPORT SINUS RHYTHM Interpreting Physician: Mayur Bruce MD PSY OR CASE (08/15/2016 9:32 AM) Yani Ramirez MD 08/15/20169:32 AM OR CASE: ECT-ECT TREATMENT-NO CONSENT NEEDED Electroconvulsive Therapy Procedure Note Date of Procedure: 08/15/2016 Pre-Op Diagnosis Codes: * Bipolar disorder with severe depression [F31.4] Post-operative Diagnosis: same Attending Staff: Yani Bundy MD Resident/Fellow:None Indications: unresponsive to other therapy Medications: Current Facility-Administered Medications Medication Dose Route Frequency Provider Last Rate Last Dose acetaminophen (TYLENOL) tablet 650 mg650 mg Oral Q4H PRN Huy Brizuela MD 650 mg at 08/13/162055 aluminum-magnesium hydroxide-simethicone (MAALOX) liquid 30 mL 30 mL Oral Q4H PRN Huy Brizuela MD bisacodyl (DULCOLAX) suppository 10 mg10 mg Rectal PRN Huy Brizuela MD cyclobenzaprine (FLEXERIL) tablet 10 mg10 mg Oral 3X/Day PRN Huy Brizuela MD 10 mg at 08/13/16 2100 DULoxetine (CYMBALTA) delayed release capsule 60 mg60 mg Oral 2X/Day Huy Brizuela MD 60 mg at 08/13/162158 gabapentin (NEURONTIN) capsule 1,200 mg1,200 mg Oral 3X/Day Huy Brizuela MD 1,200 mg at 08/13/162158 glycopyrrolate (ROBINUL) 0.2 mg/mL injection 0.4 mg0.4 mg Intravenous ECT PRN Silvano Mcbride MD 0.4 mg at 08/13/16 0851 ibuprofen (MOTRIN) tablet 600 mg600 mg Oral Q6H PRN Huy Brizuela MD 600 mg at 08/13/16 1505 ketamine (KETALAR) 50 mg/mL injection 150 mg150 mg Intravenous ECT PRN Ravi Lawrence MD magnesium hydroxide (MILK OF MAGNESIA CONCENTRATE) 2,400 mg/10 mL liquid 10 mL10 mL Oral QHS PRN Huy Brizuela MD metoPROLol (LOPRESSOR) 1 mg/mL injection 2.5 mg2.5 mg Intravenous ECT PRN Silvano Mcbride MD 2.5 mg at 08/13/16 0851 midazolam (PF) (VERSED) 1 mg/mL injection 1 mg1 mg Intravenous ECT PRN Ravi Lawrence MD 1 mg at 08/13/16 0852 nicotine (NICORETTE) gum 2 mg2 mg Oral Q2H PRN Huy Brizuela MD 2 mg at 08/07/16 0929 prazosin (MINIPRESS) capsule 3 mg3 mg Oral QHS Silvano Hawthorne MD 3 mg at 08/13/162158 QUEtiapine (SEROquel) tablet 25 mg25 mg Oral Q6H PRN Huy Brizuela MD 25 mg at 08/13/162158 sodium chloride 0.9% flush syringe 10 mL10 mL Intravenous PRN Huy Brizuela MD sodium chloride 0.9% flush syringe 20 mL20 mL Intravenous PRN Huy Brizuela MD succinylcholine (QUELICIN) 20 mg/mL injection 200 mg200 mg Intravenous ECT PRN Silvano Mcbride MD 200 mg at 08/13/16 0851 traZODone (DESYREL) tablet 100 mg100 mg Oral QHS PRN Silvano Hawthorne MD 100 mg at 08/06/16 2148 traZODone (DESYREL) tablet 200 mg200 mg Oral QHS Huy Brizuela MD 200 mg at 08/13/16 2200 Time Out Verification: Immediately prior to the start of the procedure an active 'time out' was performed by all members of the team. The patient was identified, consent was obtained, all members present agree on procedure to be performed, the correct electrode configuration was identified, and the availability of special equipment, supplies or devices was confirmed and safety precautions were reviewed. Description of Operation/Procedure: The risks, benefits, indications, potential complications, and alternatives were explained to the patient and/or family and informed consent obtained. Clinical Reminders: Place BP cuff on forearm Severe back and neck pain History of multiple cervical and lumbar spinal surgeries with cervical rods in place Status: s/p tubal ligation Pulse width: 0.3 msec Frequency:60 hertz Duration:8 seconds Current: 900 milliamps [place] 259.2 mC Adequate seizure? Yes Previously "Inpatient team was asked to double check her allergic list as she has been given ibuprofen while ketorolac is on her allergic list." Induction Medications: 1. Ketamine 200 mg 2. Succinylcholine 200 mg 3. Glycopyrrolate 0.4 mg 4. Metoprolol 2.5 mg 5. Post-ECT: Midazolam 1 mg (d/t ketamine use) ++ (Medications added during session)Ketamine 25 mg, metoprolol 2.5 for tachycardia in the 130's in the recovery area Series type: index Treatment number: 4 Electrode placement: right unilateral Seizure duration (objective): 43 seconds Seizure duration (EEG): 83 seconds Depression (0=good, 10=poor): 6 (reportedly improving from "10 plus" prior to starting ECT) Memory: 1 or 2 (she states that she attributes this to the depression since it hasn't changed with ECT) Physical Exam: BP 127/80 mmHg | Pulse 80 | Temp(Src) 36.2 C (97.2 F) (Tympanic) | Resp 18 | Ht 1.714 m (5' 7.48") | Wt 140.9 kg (310 lb 10.1 oz) | BMI 47.96 kg/m2 | SpO2 97% | LMP 06/15/2016 General appearance: alert, cooperative, no distress Lungs: clear to auscultation bilaterally Heart: regular rate and rhythm, S1, S2 normal, no murmur, click, rub or gallop Complaints following last treatment:Hallucinations denies, headaches "slight" and relieved by prn Tylenol on the unit, nausea denies Complications:The patient did tolerate the procedure well and no complications were noted. The patient was then transported to the recovery area. Plan: Discharge instructions were provided. Conditions for next treatment:Increase ketamine to 225 mg. Teaching Statement: Yani Bundy MD was present for the entire procedure. Resident:None Yani Bundy MD Cable Armorer (clinical) registered dental assistant rda LIPID PANEL (08/15/2016 9:20 AM) Component Value Range Specimen Type Fasting Cholesterol 218Comment: mg/dL Reference Range: Less than 200 mg/dL - desirable 200 - 240 mg/dL - increased risk Above 240 mg/dL - significant risk Triglycerides 219(H)Comment: 0-150 mg/dL Reference Ranges: Normal:<150 mg/dL Borderline-high:150-199 mg/dL High: 200-499 mg/dL Very high: > bb=628 mg/dL HDL Cholesterol 39(L) >=41 mg/dL LDL - Calculated 135(H) <=130 mg/dL Non-HDL Cholesterol (Calc) 179Comment: mg/dL The reference ranges for Non-HDL-C are based on National Cholesterol Education III guidelines: Desirable: <130 mg/dL Borderline High: 130-159 mg/dL High:160-189 mg/dL Very High: > vp=879 mg/dL Specimen Blood PSY OR CASE (08/13/2016 8:59 AM) Margaret Santiago DO 08/13/20168:59 AM OR CASE: ECT-ECT TREATMENT-NO CONSENT NEEDED Electroconvulsive Therapy Procedure Note Date of Procedure: 08/13/2016 Pre-Op Diagnosis Codes: * Bipolar disorder with severe depression [F31.4] Post-operative Diagnosis: same Attending Staff: Margaret Peña DO Resident/Fellow:None Indications: unresponsive to other therapy Medications: Current Facility-Administered Medications Medication Dose Route Frequency Provider Last Rate Last Dose acetaminophen (TYLENOL) tablet 650 mg650 mg Oral Q4H PRN Huy Brizuela MD 650 mg at 08/11/16 0828 aluminum-magnesium hydroxide-simethicone (MAALOX) liquid 30 mL 30 mL Oral Q4H PRN Huy Brizuela MD bisacodyl (DULCOLAX) suppository 10 mg10 mg Rectal PRN Huy Brizuela MD cloNIDine (CATAPRESS) tablet 0.15 mg0.15 mg Oral 3X/Day Huy Brizuela MD 0.15 mg at 08/11/16 0800 cloNIDine HCl (CATAPRESS) tablet 0.1 mg0.1 mg Oral 2X/Day PRN Huy Brizuela MD cyclobenzaprine (FLEXERIL) tablet 10 mg10 mg Oral 3X/Day PRN Huy Brizuela MD 10 mg at 08/10/16 1446 DULoxetine (CYMBALTA) delayed release capsule 60 mg60 mg Oral 2X/Day Huy Brizuela MD 60 mg at 08/11/16 0800 gabapentin (NEURONTIN) capsule 1,200 mg1,200 mg Oral 3X/Day Huy Brizuela MD 1,200 mg at 08/11/16 0800 glycopyrrolate (ROBINUL) 0.2 mg/mL injection 0.4 mg0.4 mg Intravenous ECT PRN Silvano Mcbride MD 0.4 mg at 08/11/16 1013 hydrOXYzine HCl (ATARAX) tablet 25 mg25 mg Oral 3X/Day Huy Brizuela MD 25 mg at 08/11/16 1202 ibuprofen (MOTRIN) tablet 600 mg600 mg Oral Q6H PRN Huy Brizuela MD 600 mg at 08/11/16 1202 ketamine (KETALAR) 50 mg/mL injection 225 mg225 mg Intravenous ECT PRN Silvano Mcbride MD LORazepam (ATIVAN) 2 mg/mL injection 1 mg1 mg Intravenous ECT PRN Silvano Mcbride MD magnesium hydroxide (MILK OF MAGNESIA CONCENTRATE) 2,400 mg/10 mL liquid 10 mL10 mL Oral QHS PRN Huy Brizuela MD metoPROLol (LOPRESSOR) 1 mg/mL injection 2.5 mg2.5 mg Intravenous ECT PRN Silvano Mcbride MD 2.5 mg at 08/11/16 1013 nicotine (NICORETTE) gum 2 mg2 mg Oral Q2H PRN Huy Brizuela MD 2 mg at 08/07/16 0929 nicotine (NICOTROL) patch 14 mg14 mg Transdermal Daily Huy Brizuela MD 14 mg at 08/06/16 0759 And nicotine (NICOTROL) patch REMOVAL Transdermal Daily Huy Brizuela MD prazosin (MINIPRESS) capsule 3 mg3 mg Oral QHS Silvano Hawthorne MD 3 mg at 08/10/16 210 sodium chloride 0.9% flush syringe 10 mL10 mL Intravenous PRN Huy Brizuela MD sodium chloride 0.9% flush syringe 20 mL20 mL Intravenous PRN Huy Brizuela MD succinylcholine (QUELICIN) 20 mg/mL injection 200 mg200 mg Intravenous ECT PRN Silvano Mcbride MD 200 mg at 08/11/16 1013 traZODone (DESYREL) tablet 100 mg100 mg Oral QHS PRN Silvano Hawthorne MD 100 mg at 08/06/16 2148 traZODone (DESYREL) tablet 200 mg200 mg Oral QHS Huy Brizuela MD 200 mg at 08/10/162107 Time Out Verification: Immediately prior to the start of the procedure an active 'time out' was performed by all members of the team. The patient was identified, consent was obtained, all members present agree on procedure to be performed, the correct electrode configuration was identified, and the availability of special equipment, supplies or devices was confirmed and safety precautions were reviewed. Description of Operation/Procedure: The risks, benefits, indications, potential complications, and alternatives were explained to the patient and/or family and informed consent obtained. Clinical Reminders: Place BP cuff on forearm Severe back and neck pain History of multiple cervical and lumbar spinal surgeries with cervical rods in place Status: s/p tubal ligation Pulse width: 0.3 msec Frequency:60 hertz Duration:8 seconds Current: 900 milliamps Millicoulombs 259.2 mC Adequate seizure? Yes Previously "Inpatient team was asked to double check her allergic list as she has been given ibuprofen while ketorolac is on her allergic list." Induction Medications: 1. Ketamine 150 mg AND N2O 2. Succinylcholine 200 mg 3. Glycopyrrolate 0.4 mg 4. Metoprolol 2.5 mg 5. Post-ECT: Midazolam 1 mg (d/t ketamine use) ++ (Medications added during session) Additional ketamine 50mg IV for induction Series type: index Treatment number: 3 Electrode placement: right unilateral Seizure duration (objective): 22 seconds Seizure duration (EEG): 30 seconds Depression (0=good, 10=poor): 7 Memory: 2 Physical Exam: BP 88/62 mmHg | Pulse 81 | Temp(Src) 36.3 C (97.3 F) (Tympanic) | Resp 14 | Ht 1.714 m (5' 7.48") | Wt 140.9 kg (310 lb 10.1 oz) | BMI 47.96 kg/m2 | SpO2 99% | LMP 06/15/2016 General appearance: alert, cooperative, no distress, appears stated age Lungs: clear to auscultation bilaterally Heart: regular rate and rhythm, S1, S2 normal, no murmur, click, rub or gallop Complaints following last treatment:Hallucinations no, headaches no, nausea no Complications:The patient did tolerate the procedure well and no complications were noted. The patient was then transported to the recovery area. Plan: Discharge instructions were provided. Conditions for next treatment:Increase ketamine to 200mg Teaching Statement: Margaret Peña DO was present for the entire procedure. Resident:None Margaret Peña DO Cable Armorer (clinical) registered dental assistant rda PICC LINE REQUEST (08/12/2016 1:07 PM) Ana Thayer RN 08/12/20161:07 PM Procedure PICC Line Insertion, 08/12/2016 Consent for Procedure The procedure was explained to the patient including risks and benefits.Patient signed consent form and wishes to proceed. A time out was performed at bedside. Location: Patient room Description of Procedure The double back operator performed proper hand hygiene and utilized maximum sterile barrier precautions. The patient's skin was prepped with CHG and draped with a large body drape in the usual sterile fashion.Using ultrasound guidance, the right cephalic vein was identified and assessed for patency.4 cc's of 1% lidocaine was injected into the skin.Using the Seldinger technique and ultrasound guidance, the vein was entered with a 21 gauge micropuncture needle and the wire threaded into the vein.A 44 cm 4 Fr single lumen [employer] PICC SOLO catheter (Lot number [id number]) was inserted into the tear-away sheath.Blood was aspirated from the lumen and the catheter was easily flushed with saline, secured into place, and dressed with a sterile CHG tegaderm. The distal tip was confirmed in the superior vena cava. PICC line placement was confirmed by chest x-ray.PICC line is ready for use. Procedure was successful at bedside. Complications There were no immediate complications. Staff Ana Locke, RN-BSN Nurse Clinical Specialist PICC Service CHEST - AP/PA (08/12/2016 12:21 PM) Impressions Findings / Impression: Right upper extremity PICC line tip is in the SVC. Otherwise the portable exam is within normal limits. Narrative Procedure: CHEST - AP/PA Technique: Portable AP chest radiograph Comparison: Chest radiograph(s) dated: No prior. Clinical Indication: PICC line placement Procedure Note Ron, Incoming Imaging Results - ThuAug 12, 2016 12:41 PM ENGINE DYNAMOMETER TESTER Procedure: CHEST - AP/PA Technique: Portable AP chest radiograph Comparison: Chest radiograph(s) dated: No prior. Clinical Indication: PICC line placement IMPRESSION Findings / Impression: Right upper extremity PICC line tip is in the SVC. Otherwise the portable exam is within normal limits. PSY OR CASE (08/11/2016 10:51 AM) Narrative Ravi Lawrence MD 08/11/2016 10:51 AM OR CASE: ECT-ECT TREATMENT-NO CONSENT NEEDED Electroconvulsive Therapy Procedure Note Date of Procedure: 08/11/2016 Pre-Op Diagnosis Codes: * Bipolar disorder with severe depression [F31.4] Post-operative Diagnosis: same Attending Staff: Ravi Lawrence MD Resident/Fellow: None Indications: unresponsive to other therapy Medications: Current Facility-Administered Medications Medication Dose Route Frequency Provider Last Rate Last Dose acetaminophen (TYLENOL) tablet 650 mg650 mg Oral Q4H PRN Huy Brizuela MD 650 mg at 08/10/16 0811 aluminum-magnesium hydroxide-simethicone (MAALOX) liquid 30 mL 30 mL Oral Q4H PRN Huy Brizuela MD bisacodyl (DULCOLAX) suppository 10 mg10 mg Rectal PRN Huy Brizuela MD cloNIDine (CATAPRESS) tablet 0.15 mg0.15 mg Oral 3X/Day Huy Brizuela MD 0.15 mg at 08/10/162108 cloNIDine HCl (CATAPRESS) tablet 0.1 mg0.1 mg Oral 2X/Day PRN Huy Brizuela MD cyclobenzaprine (FLEXERIL) tablet 10 mg10 mg Oral 3X/Day PRN Huy Brizuela MD 10 mg at 08/10/16 144 DULoxetine (CYMBALTA) delayed release capsule 60 mg60 mg Oral 2X/Day Huy Brizuela MD 60 mg at 08/10/162108 gabapentin (NEURONTIN) capsule 1,200 mg1,200 mg Oral 3X/Day Huy Brizuela MD 1,200 mg at 08/10/162107 glycopyrrolate (ROBINUL) 0.2 mg/mL injection 0.4 mg0.4 mg Intravenous ECT PRN Silvano Mcbride MD hydrOXYzine HCl (ATARAX) tablet 25 mg25 mg Oral 3X/Day Huy Brizuela MD 25 mg at 08/10/16 162 ibuprofen (MOTRIN) tablet 600 mg600 mg Oral Q6H PRN Huy Brizuela MD 600 mg at 08/10/16 144 ketamine (KETALAR) 50 mg/mL injection 225 mg225 mg Intravenous ECT PRN Silvano Mcbride MD lactated ringers (LR) continuous infusion Intravenous Continuous Polo Alarcon MD LORazepam (ATIVAN) 2 mg/mL injection 1 mg1 mg Intravenous ECT PRN Silvano Mcbride MD magnesium hydroxide (MILK OF MAGNESIA CONCENTRATE) 2,400 mg/10 mL liquid 10 mL10 mL Oral QHS PRN Huy Brizuela MD metoPROLol (LOPRESSOR) 1 mg/mL injection 2.5 mg2.5 mg Intravenous ECT PRN Silvano Mcbride MD nicotine (NICORETTE) gum 2 mg2 mg Oral Q2H PRN Huy Brizuela MD 2 mg at 08/07/16 0929 nicotine (NICOTROL) patch 14 mg14 mg Transdermal Daily Huy Brizuela MD 14 mg at 08/06/16 0759 And nicotine (NICOTROL) patch REMOVAL Transdermal Daily Huy Brizuela MD ondansetron (pf) (ZOFRAN) 2 mg/mL injection 4 mg4 mg Intravenous Once PRN Polo Alarcon MD prazosin (MINIPRESS) capsule 3 mg3 mg Oral QHS Silvano Hawthorne MD 3 mg at 08/10/162108 succinylcholine (QUELICIN) 20 mg/mL injection 200 mg200 mg Intravenous ECT PRN Silvano Mcbride MD 20 mg at 08/08/16 1154 traZODone (DESYREL) tablet 100 mg100 mg Oral QHS PRN Silvano Hawthorne MD 100 mg at 08/06/162147 traZODone (DESYREL) tablet 200 mg200 mg Oral QHS Huy Brizuela MD 200 mg at 08/10/162107 Time Out Verification: Immediately prior to the start of the procedure an active 'time out' was performed by all members of the team. The patient was identified, consent was obtained, all members present agree on procedure to be performed, the correct electrode configuration was identified, and the availability of special equipment, supplies or devices was confirmed and safety precautions were reviewed. Description of Operation/Procedure: The risks, benefits, indications, potential complications, and alternatives were explained to the patient and/or family and informed consent obtained. Clinical Reminders: BP cuff on forearm Severe back and neck pain History of multiple cervical and lumbar spinal surgeries with cervical rods in place Status: s/p tubal ligation Pulse width: 0.3 msec Frequency:40 hertz Duration:7.5 seconds Current: 900 milliamps Millicoulombs 162 mC Adequate seizure? Sub-optimal Induction Medications: 1. Ketamine 175 mg + N2O 2. Succinylcholine 200 mg 3. Glycopyrrolate 0.4 mg 4. Metoprolol 2.5 mg 5. Post-ECT: Midazolam 1 mg (d/t ketamine use) Series type: index Treatment number: 2 Electrode placement: right unilateral Seizure duration (objective): 11 seconds Seizure duration (EEG): 12 seconds Depression (0=good, 10=poor): Reports "a small improvement" Memory: OK Physical Exam: Lungs: clear to auscultation bilaterally Heart: regular rate and rhythm, S1, S2 normal, no murmur, click, rub or gallop Abdomen: soft, non-tender. Bowel sounds normal. No masses,no organomegaly Complaints following last treatment:Hallucinations no, headaches no, nausea no Complications:The patient did tolerate the procedure well and no complications were noted. The patient was then transported to the recovery area. Plan: Discharge instructions were provided. Conditions for next treatment: Use ketamine 150 mg + N2O. Increase setting to 259.2 mC. Inpatient team was asked to double check her allergic list as she has been given ibuprofen while ketorolac is on her allergic list. Teaching Statement: Dr. Ravi Lawrence was present for the entire procedure. Resident: None Ravi Lawrence MD Marketing Content Specialist, Psychiatry PSY OR CASE (08/08/2016 3:41 PM) Silvano Elliott MD 08/08/20163:41 PM OR CASE: ECT-INITIAL TREATMENT Electroconvulsive Therapy Procedure Note Date of Procedure: 08/08/2016 Pre-Op Diagnosis Codes: * Bipolar disorder with severe depression [F31.4] Post-operative Diagnosis: same Attending Staff: Silvano Mcbride MD Resident/Fellow:None Indications: unresponsive to other therapy Medications: Current Facility-Administered Medications Medication Dose Route Frequency Provider Last Rate Last Dose acetaminophen (TYLENOL) tablet 650 mg650 mg Oral Q4H PRN Huy Brizuela MD 650 mg at 08/07/16 1834 aluminum-magnesium hydroxide-simethicone (MAALOX) liquid 30 mL 30 mL Oral Q4H PRN Huy Brizuela MD bisacodyl (DULCOLAX) suppository 10 mg10 mg Rectal PRN Huy Brizuela MD cloNIDine HCl (CATAPRESS) tablet 0.1 mg0.1 mg Oral 3X/Day Huy Brizuela MD 0.1 mg at 08/08/16 0827 cloNIDine HCl (CATAPRESS) tablet 0.1 mg0.1 mg Oral 2X/Day PRN Huy Brizuela MD cyclobenzaprine (FLEXERIL) tablet 10 mg10 mg Oral 3X/Day PRN Huy Brizuela MD 10 mg at 08/07/16 0929 DULoxetine (CYMBALTA) delayed release capsule 60 mg60 mg Oral 2X/Day Huy Brizuela MD 60 mg at 08/08/16 08 gabapentin (NEURONTIN) capsule 1,200 mg1,200 mg Oral 3X/Day Huy Brizuela MD 1,200 mg at 08/08/16 0827 glycopyrrolate (ROBINUL) 0.2 mg/mL injection 0.2 mg0.2 mg Intravenous ECT PRN Silvano Mcbride MD hydrOXYzine HCl (ATARAX) tablet 25 mg25 mg Oral 3X/Day Huy Brizuela MD ibuprofen (MOTRIN) tablet 600 mg600 mg Oral Q6H PRN Huy Brizuela MD 600 mg at 08/07/162046 ketamine (KETALAR) 50 mg/mL injection 200 mg200 mg Intravenous ECT PRN Silvano Mcbride MD LORazepam (ATIVAN) 2 mg/mL injection 1 mg1 mg Intravenous ECT PRN Silvano Mcbride MD magnesium hydroxide (MILK OF MAGNESIA CONCENTRATE) 2,400 mg/10 mL liquid 10 mL10 mL Oral QHS PRN Huy Brizuela MD nicotine (NICORETTE) gum 2 mg2 mg Oral Q2H PRN Huy Brizuela MD 2 mg at 08/07/16 0929 nicotine (NICOTROL) patch 14 mg14 mg Transdermal Daily Huy Brizuela MD 14 mg at 08/06/16 0759 And nicotine (NICOTROL) patch REMOVAL Transdermal Daily Huy Brizuela MD prazosin (MINIPRESS) capsule 3 mg3 mg Oral QHS Silvano Hawthorne MD 3 mg at 08/07/162043 succinylcholine (QUELICIN) 20 mg/mL injection 200 mg200 mg Intravenous ECT PRN Silvano Mcbride MD traZODone (DESYREL) tablet 100 mg100 mg Oral QHS PRN Silvano Hawthorne MD 100 mg at 08/06/162147 traZODone (DESYREL) tablet 200 mg200 mg Oral QHS Huy Brizuela MD 200 mg at 08/07/162043 Time Out Verification: Immediately prior to the start of the procedure an active 'time out' was performed by all members of the team. The patient was identified, consent was obtained, all members present agree on procedure to be performed, the correct electrode configuration was identified, and the availability of special equipment, supplies or devices was confirmed and safety precautions were reviewed. Description of Operation/Procedure: The risks, benefits, indications, potential complications, and alternatives were explained to the patient and/or family and informed consent obtained. Clinical Reminders: Severe back and neck pain History of multiple cervical and lumbar spinal surgeries with cervical rods in place Status: s/p tubal ligation TITRATION Pulse width: 0.3 msec Frequency:20 hertz Duration:1.5 seconds Current: 900 milliamps Charge 16.2 mC Adequate seizure? No Stimulus #2 Pulse width: 0.3 msec Frequency:20 hertz Duration:2.5 seconds Current: 900 milliamps Millicoulombs 27 mC Adequate seizure? Yes Induction Medications: 1. Ketamine 200 mg + 50 mg 2. Succinylcholine 200 mg 3. Glycopyrrolate 0.2 mg +0.2 4. Lorazepam 1 mg ++ (Medications added during session)Metoprolol 5 mg Series type: index Treatment number: 1 Electrode placement: right unilateral Seizure duration (objective): 55 seconds Seizure duration (EEG): 63 seconds Mood: 10 Memory: 5(does not feel memory is normal even before starting treatments) Physical Exam: BP 117/79 mmHg | Pulse 75 | Temp(Src) 36.6 C (97.9 F) (Tympanic) | Resp 18 | Ht 1.714 m (5' 7.48") | Wt 140.9 kg (310 lb 10.1 oz) | BMI 47.96 kg/m2 | SpO2 96% | LMP 06/15/2016 General appearance: alert, cooperative, no distress, appears stated age Back: no tenderness to percussion or palpation Lungs: clear to auscultation bilaterally Abdomen: soft, non-tender. Bowel sounds normal. No masses,no organomegaly Complications:The patient did tolerate the procedure well and no complications were noted.Metoprolol was given in Stage I recovery due to tachycardia around 130.Subsequently, BP monitor indicated some hypotension.Fluids were started.However, repositioning the blood pressure cuff resulted in normal blood pressure readings, and fluids were discontinued.Note, also, that IV access was quite difficult. The patient was then transported to the recovery area. Plan: Discharge instructions were provided. Conditions for next treatment: Next settings increase glycopyrrolate to 0.4 mg forsecretions.Increase ketamine to 225 mg.Add metoprolol 2.5 mg Stimulus 162 mC Teaching Statement: Silvano Mcbride MD was present for the entire procedure. Resident:None Silvano Mcbride MD Associate (clinical) registered dental assistant rda MRI SPINE LUMBAR WO CONTRAST ([id number]) (08/04/2016 9:01 PM)Only the most recent of2 resultswithin the time period is included. Impressions Impression: 1. Multilevel degenerative and postsurgical changes. The overall appearance is very similar to the recent prior MRI. No new superimposed acute process. 2. There is moderate spinal stenosis at T11-T12 with adjacent lower thoracic cord hyperintensity. 3. No significant lumbar spinal stenosis as the canal is decompressed posteriorly. There is multilevel neuroforaminal narrowing as a result of facet hypertrophy, most significant on the right at L3-L4. This final report is in agreement with the critical and emergent preliminary findings reported by the nursing resident ekg monitor. Narrative Procedure: MRI SPINE LUMBAR WO CONTRAST ([id number]) Indication: r/o disc herniation and spinal cord compression Technique: Multisequence, multiplanar MRI of the lumbar spine without IV contrast. Comparison: MRI L-spine 07/24/2016 Findings: Numbering assumes 5 lumbar type vertebrae. Postoperative changes identified in the posterior soft tissues including postsurgical change of L3-L5 laminectomy. Overall stable spinal alignment. Vertebral body heights are maintained. There is central cord hyperintensity identified at the T11-T12 levels although no myelomalacia is identified. The conus medullaris terminates at L1. A level by level analysis is as follows: T11-T12: Disc desiccation with a calcified posterior disc osteophyte. Superimposed left paracentral disc herniation with compression on the lower thoracic cord. No significant neural foraminal narrowing T12-L1: There is no significant disc disease or stenosis. L1-L2: Disc desiccation with mild diffuse disc bulge with mild deformity of the thecal sac. No significant spinal stenosis. No neuroforaminal narrowing. L2-L3: Disc desiccation with diffuse posterior disc bulge. Very minimal retrolisthesis of L2 on L3 is again identified. Bilateral facet hypertrophy. This results in mild spinal stenosis. Moderate left-sided neural foraminal narrowing. Moderate right-sided neural foraminal narrowing. L3-L4: Disc desiccation is identified with very prominent asymmetric posterior disc bulge. The thecal sac is decompressed posteriorly in the laminectomy tract. Bilateral facet hypertrophy is identified. No significant spinal stenosis. There is, however, severe right-sided neuroforaminal narrowing. L4-L5: Disc desiccation with asymmetric posterior disc bulge. No significant spinal stenosis as the canal is decompressed posteriorly. Bilateral facet hypertrophy. There is moderate bilateral neuroforaminal narrowing. L5-S1: Disc desiccation with mild diffuse disc bulge. No significant spinal stenosis. Mild left neural foraminal narrowing. Right neural foramen is patent. Procedure Note Ron, Incoming Imaging Results - Tue Aug 05, 2016 11:24 AM ENGINE DYNAMOMETER TESTER Procedure: MRI SPINE LUMBAR WO CONTRAST ([id number]) Indication: r/o disc herniation and spinal cord compression Technique: Multisequence, multiplanar MRI of the lumbar spine without IV contrast. Comparison: MRI L-spine 07/24/2016 Findings: Numbering assumes 5 lumbar type vertebrae. Postoperative changes identified in the posterior soft tissues including postsurgical change of L3-L5 laminectomy. Overall stable spinal alignment. Vertebral body heights are maintained. There is central cord hyperintensity identified at the T11-T12 levels although no myelomalacia is identified. The conus medullaris terminates at L1. A level by level analysis is as follows: T11-T12: Disc desiccation with a calcified posterior disc osteophyte. Superimposed left paracentral disc herniation with compression on the lower thoracic cord. No significant neural foraminal narrowing T12-L1: There is no significant disc disease or stenosis. L1-L2: Disc desiccation with mild diffuse disc bulge with mild deformity of the thecal sac. No significant spinal stenosis. No neuroforaminal narrowing. L2-L3: Disc desiccation with diffuse posterior disc bulge. Very minimal retrolisthesis of L2 on L3 is again identified. Bilateral facet hypertrophy. This results in mild spinal stenosis. Moderate left-sided neural foraminal narrowing. Moderate right-sided neural foraminal narrowing. L3-L4: Disc desiccation is identified with very prominent asymmetric posterior disc bulge. The thecal sac is decompressed posteriorly in the laminectomy tract. Bilateral facet hypertrophy is identified. No significant spinal stenosis. There is, however, severe right-sided neuroforaminal narrowing. L4-L5: Disc desiccation with asymmetric posterior disc bulge. No significant spinal stenosis as the canal is decompressed posteriorly. Bilateral facet hypertrophy. There is moderate bilateral neuroforaminal narrowing. L5-S1: Disc desiccation with mild diffuse disc bulge. No significant spinal stenosis. Mild left neural foraminal narrowing. Right neural foramen is patent. IMPRESSION Impression: 1. Multilevel degenerative and postsurgical changes. The overall appearance is very similar to the recent prior MRI. No new superimposed acute process. 2. There is moderate spinal stenosis at T11-T12 with adjacent lower thoracic cord hyperintensity. 3. No significant lumbar spinal stenosis as the canal is decompressed posteriorly. There is multilevel neuroforaminal narrowing as a result of facet hypertrophy, most significant on the right at L3-L4. This final report is in agreement with the critical and emergent preliminary findings reported by the nursing resident ekg monitor. C-REACTIVE PROTEIN (08/04/2016 8:06 PM) Component Value Range CRP (C-Reactive Protein) 2.3(H) <=0.5 mg/dL Specimen Blood ERYTHROCYTE SEDIMENTATION RATE (08/04/2016 8:06 PM) Component Value Range ESR (Erythrocyte Sedimentation Rate) 28(H) 0-20 mm/Hr Specimen Whole Blood BASIC METABOLIC PANEL W/ CALCIUM (CHEM 8) (08/04/2016 8:06 PM)Only the most recent of2 resultswithin the time period is included. Component Value Range Sodium 141 135-145 mEq/L Potassium 4.1 3.5-5.0 mEq/L Chloride 104 95-107 mEq/L CO2 23 22-29 mEq/L Anion Gap 14 8-18 mEq/L BUN 6(L) 10-20 mg/dL Creatinine 0.6Comment: 0.5-1.0 mg/dL Creatinine switched to enzymatic method on 10/22/2010.GFR equation switched to IDMS-traceable MDRD equation on 10/22/2010. Calculated GFR values are not valid in clinical settings where serum creatinine is changing. Glucose 93Comment: 65-99 mg/dL The Expert Committee on the Diagnosis and Classification of Diabetes has defined impaired fasting glucose as greater than or equal to 100 mg/dL but less than 126 mg/dL.(Diabetes Care 28 (Suppl 1)S41,2005) Calcium 8.9 8.5-10.5 mg/dL Calculated GFR >90 >60 mL/min/1.73 m2 Specimen Blood CBC (COMPLETE BLOOD COUNT) (08/04/2016 8:06 PM)Only the most recent of2 resultswithin the time period is included. Component Value Range WBC Count 9.8 3.7-10.5 K/MM3 RBC Count 4.09 4.00-5.20 M/MM3 Hemoglobin 12.5 11.9-15.5 g/dL Hematocrit 39 35-47 % MCV (Mean Corpuscular Volume) 95 82-99 FL MCH (Mean Corpuscular Hemoglobin) 31 25-35 PG MCHC (Mean Corpuscular Hemoglobin Concentration) 32 32-36 % Platelet Count 327 150-400 K/MM3 MPV (Mean Platelet Volume) 11.2 9.4-12.3 FL RBC Dist Width-STD 48.8(H) 36.4-46.3 FL RBC Distrib Width 14.2 9.0-14.5 % Nucleated RBC 0 /100 WBC Specimen Whole Blood LITHIUM DRUG LEVEL (08/04/2016 8:06 PM) Component Value Range [place] Drug Level <0.10(L)Comment: 0.40-1.20 mEq/L Therapeutic range:0.6-1.2 mEq/L Toxic:>2.0 mEq/L Specimen Blood EMG - NCS (07/25/2016 4:25 PM) Narrative Jaclyn Ram 07/25/20164:25 PM Reason for Request: Lower extremity weakness Requested by: Dunia Mondragon MD Staff Physician: Harley Wild MD Date of Service: 07/25/2016 Please see complete F-15 report to be scanned in under Media Tab. EMG patient intake form has been completed and reviewed. EMG (07/25/2016 4:25 PM) Narrative Jaclyn Ram 07/25/20164:25 PM Reason for Request: Lower extremity weakness Requested by: Dunia Mondragon MD Staff Physician: Harley Wild MD Date of Service: 07/25/2016 Please see complete F-15 report to be scanned in under Media Tab. EMG patient intake form has been completed and reviewed. MRI SPINE CERVICAL WO CONTRAST ([id number]) (07/24/2016 8:00 PM) Impressions Impression: Postsurgical changes of C6-C7 ACDF No evidence of acute injury. This final report is in agreement with the critical and emergent preliminary findings reported by the nursing resident ekg monitor. Narrative Procedure: MRI SPINE CERVICAL WO CONTRAST ([id number]) Indication: Weakness of the right lower extremity [...] Results - ThuJul 25, 2016 2:48 PM ENGINE DYNAMOMETER TESTER Procedure: MRI SPINE CERVICAL WO CONTRAST ([id number]) Indication: Weakness of the right lower extremity [...] and emergent preliminary findings reported by the nursing resident ekg monitor. MRI SPINE THORACIC WO CONTRAST ([id number]) (07/24/2016 12:49 AM) Impressions Impression: 1. Stable multilevel degenerative changes [...] Narrative Procedure: MRI SPINE THORACIC WO CONTRAST ([id number]) Indication: Fall with RLE weakness and mid-back [...] Procedure Note Ron, Incoming Imaging Results - Mckayla Jul 24, 2016 6:56 PM ENGINE DYNAMOMETER TESTER Procedure: MRI SPINE THORACIC WO CONTRAST ([id number]) Indication: Fall with RLE weakness and mid-back [...] clinically indicated suggest further evaluation with CT. TYPE AND SCREEN (BLOOD TYPE(ABORH) AND RBC ANTIBODY SCREEN) (07/23/2016 10:21 PM ) Component Value Range ABORH A Positive Specimen Expiration Date 2016-07-26 Antibody Screen Negative Specimen Blood PTT (PARTIAL THROMBOPLASTIN TIME) (07/23/2016 10:21 PM) Component Value Range PTT 21(L) 22-31 secs Specimen Blood PT/INR (PROTHROMBIN TIME/INR) VENOUS (07/23/2016 10:21 PM) Component Value Range PT (Prothrombin Time) 10 9-12 secs INR 1.0 <4.0 Specimen Blood
--- OUTSIDE RECORDS SUMMARY | 2016-09-11 21:43 | XMS REPORT | Continuity of Care Document ---
:1975 Author Organization [employer] [place] [address] Care Team Providers Name Role Phone Provider, None Per Patient Primary Care Provider Unavailable Source Comments This disclosure is being made pursuant to the [employer] program and maynot contain all information available regarding this patient.[employer] Active Allergies and Adverse Reactions Allergen Noted [...] Recent Encounters Date Type Specialty Providers Description 09/11/2016 Data Import Immunizations Name Dates Previously Given [...]
[2016-09-11 21:45] LABS: Hematocrit 41.4 % (37.0-47.0); Hemoglobin 13.4 gm/dL (12.5-16.0); Mean Cell Volume 96.1 fl (78-100); Mean Corpuscular Hemoglobin 31.1 pg (27-31); Mean Corpuscular Hgb Conc 32.4 g/dl (32-36); Mean Platelet Volume 10.1 fl (6.0-9.5); Neutrophil % 65.6 % (42-75.0); Platelet Count 430 K/mm3 (150-450); Red Blood Count 4.31 M/mm3 (4.2-5.4); Red Cell Distribution Width 13.8 % (11.5-14.0); White Blood Count 9.1 K/mm3 (4.0-10.5)
[2016-09-11] MEDS ORDERED: NALBUPHINE HCL 20 MG/ML AMPUL ONE (21:49)
[2016-09-11] MEDS ORDERED: ONDANSETRON HCL/PF 2 MG/ML VIAL ONE (21:49)
--- NOTE | 2016-09-11 21:54 | ERNOTE ---
<Catalina Felipe - Last Filed: 09/11/16 22:48> Abdominal HPI - Narrative Date of Service: 09/11/16 - General Chief Complaint: Abdominal Pain Time Seen by Provider: 09/11/16 21:23 Source: patient Exam Limitations: no limitations - Immun/Allergies/Home Medications Immunizatons: IMMUNIZATION HX Immunizations Up to Date Yes History of Influenza Vaccine Yes Hx Pneumococcal Vaccination No Allergies/Adverse Reactions: Allergies celecoxib [From Celebrex] Allergy (Intermediate, Verified 09/11/16 21:04) Hives ketorolac tromethamine [From Toradol] Allergy (Intermediate, Verified 09/11/16 21:04) Hives morphine Adverse Reaction (Intermediate, Verified 09/11/16 21:04) Itching Home Medications: HOME MEDICATIONS Gabapentin [Neurontin] 1,200 mg PO TID 03/22/14 [Last Taken 08/22/15 23:00] Ibuprofen [Motrin] 800 mg PO QID PRN 07/25/15 [Last Taken 01/24/16 19:00] Prazosin HCl 3 mg PO HS 01/03/16 [Last Taken Unknown] [place] Carbonate [[place] Carbonate ER] 450 mg PO BID #14 tablet.er 06/25/16 [ Last Taken Unknown] Duloxetine HCl [Cymbalta] 60 mg PO BID 09/11/16 [Last Taken Unknown] Omeprazole [Prilosec] 20 mg PO DAILY 09/11/16 [Last Taken Unknown] - History of Present Illness Narrative: Pt. comes in with c/o RLQ pain for two days. Pt. has a hx of ovarian cyst which is what she originally thought that this was but when it did not resolve pt. came to the ER. Pt. denies any recent illness, fever, SOB, CP, alleviating factors. But states that it worsens when she stands up or walks, and it is accompanied by vomiting. Pt. denies any recent vaginal bleeding and her LMP was three weeks ago. Review of Systems - Review of Systems Constitutional: Present: no symptoms reported. Absent: recent illness, fever, chills, weakness, fatigue, malaise, weight loss EYE: Present: no symptoms reported ENT: Present: no symptoms reported Respiratory: Present: no symptoms reported. Absent: shortness of breath, cough , wheezing Cardiology: Present: no symptoms reported. Absent: chest pain, palpitations, edema Gastrointestinal/Abdominal: Present: nausea, vomiting, diarrhea, abdominal pain , eating less, drinking less Genitourinary: Present: no symptoms reported Musculoskeletal: Present: no symptoms reported. Absent: back pain, joint pain Skin: Present: no symptoms reported Neurological: Present: no symptoms reported. Absent: headache, dizziness/light- headedness, numbness, tingling All Other Systems: All systems neg except as marked - Patient's Past Medical History Patient History - Medical: Anxiety, Chronic Pain, Depression, Obesity, Osteoarthritis Patient History - Cardiac/Respiratory: Hypertension Patient History - Cancer: No Hx of Cancer Patient History - Surgical Procedures: Back Surgery, , D & C, Tubal Ligation, T & A Patient History - Other: None LMP (Calendar): 01/10/16 - Family History Mother Family History - Medical: Diabetes Type 1 Family History - Cardiac/Respiratory: CVA/Stroke, Hypertension Father Family History - Medical: Diabetes Type 2 Family History - Cardiac/Respiratory: CVA/Stroke, Hypertension - Social History Living Situations: home Abuse History: No History of abuse, Hx of Substance Use Psych History: Hx of Anxiety, Hx of Depression, Hx of Suicide Attempt, Hx of Psychiatric Tx, Current tx/ever been on anti-depressants or anti-anxiety meds Does anyone smoke in the home?: Yes Patient requests Smoking Cessation Consult: No Initiate information on Smoking Cessation: No Alcohol Use: rarely Drug Use: marijuana - Immunizations Immunizations Up to Date: Yes Hx Pneumococcal Vaccination: No History of Influenza Vaccine: Yes Physical Exam - Physical Exam General Appearance: Present: wd/wn, alert, anxious, crying Eye Exam: Normal inspection: bilateral, PERRL: bilateral, EOMI: bilateral Ears, Nose, Throat: Present: normal ENT inspection, normal pharynx Neck: Present: normal inspection, nontender. Absent: lymphadenopathy (R), lymphadenopathy (L) Respiratory: Present: no respiratory distress, normal breath sounds, no accessory muscle use, chest nontender, lungs clear Cardiovascular/Chest: Present: regular rate, rhythm, no murmur, normal peripheral pulses Gastrointestinal/Abdominal: Present: normal bowel sounds, nondistended, tenderness, rebound, McBurney sign, Obturator sign, Psoas sign Back Exam: Present: normal range of motion, no vertebral tenderness, CVA tenderness (L) Extremity Exam: Present: normal inspection Neurological Exam: Present: alert, oriented, no motor/sensory deficits, other - crying and anxious Skin Exam: Present: normal color, warm/dry. Absent: pallor, skin rash ED Progress - Results and Orders Patient's Lab Results:: I have reviewed the patient's lab results. - Vital Signs Patient's Vital Signs:: I have reviewed the patient's vital signs. Vital Signs: Vital Signs 09/11/16 20:59 Temperature 36.8 C Pulse Rate 131 H Respiratory 18 Rate Blood Pressure 137/94 O2 Sat by Pulse 96 Oximetry - Progress/Reassessment Chief Complaint: Abdominal Pain Progress:: Improved - Transfer of Care Physician Sign Out: Catalina Felipe Receiving Physician: Trip Mayen Pending Results: X-ray results Expected Disposition: Discharge Departure - Departure Disposition: Home self-care Condition: Fair Instructions: Abdominal Pain, Adult, [id number], Constipation, Adult, Easy-to -Read Additional Instructions: YOUR LABS ARE ALL NORMAL . THERE IS A URINE CULTURE PENDING AND WE WILL CALL YOU IF THE RESULTS INDICATE A TRUE INFECTION IS PRESENT. YOUR ABDOMINAL XRAYS ARE NORMAL EXCEPT FOR A LOT OF RETAINED FECES POSSIBLY INDICATING CONSTIPATION WHICH IS A CHRONIC PROBLEM WITH PEOPLE OF FREQUENT OPIATES. YOU SHOULD USE A CLEAR LIQUID DIET FOR THE NEXT 48 HOURS AND GIVE YOUR SELF A FLEETS ENEMA AT HOME. I WOULD ALSO SUGGEST YOU TAKE 10 OUNCES OF MAGNESIA CITRATE IN THE MORNING FOLLOWED BY 2 FULL GLASSES OF WARM WATER TO TRY TO EMPTY YOUR BOWELS FROM THE TOP. RECHECK WITH YOUR DOCTORS IF NOT IMPROVING OR IF YOU ARE WORSE. IF THIS HELPS YOU SHOULD GET ON REGULAR USE OF BENEFIBER TO PREVENT RECURRANCE. Referrals: Silvano Lemus MD [Primary Care Provider] - <Trip Mayen - Last Filed: 09/11/16 23:49> Abdominal HPI - Immun/Allergies/Home Medications Immunizatons: IMMUNIZATION HX Immunizations Up to Date Yes History of Influenza Vaccine Yes Hx Pneumococcal Vaccination No ED Progress - Date and Time Seen: Date and Time: 09/11/16 23:36 PT WAS SIGNED OUT TO ME BY THE NURSE PRACTIONER FOR FOLLOW UP OF ABDOMINAL XRAY FOR HER EVALUATION OF THE PT'S RE-CURRENT ABDOMINAL PAINS. THE LABS AND URINE WERE ALL NORMAL EXCEPT A SL. DIRTY URINE WITH LOTS OF EPITHELIAL CELLS A SOME BACTERIA WITH A URINE CULTURE PENDING. - Results and Orders Patient's Lab Results:: I have reviewed the patient's lab results. Results and Orders: NEGATIVE CBC, CMP AND UA. - Vital Signs Vital Signs: Vital Signs 09/11/16 20:59 Temperature 36.8 C Pulse Rate 131 H Respiratory 18 Rate Blood Pressure 137/94 O2 Sat by Pulse 96 Oximetry - X-Ray X-Ray #1 X-Ray: abdomen Interpretation: Interp. by me - NO ACUTE FINDINGS BUT SHE DOES HAVE WHAT APPEARS EXTENSIVE AMOUNT OF FECAL RETENTION
[2016-09-11 22:03] LABS: Albumin * 3.6 gm/dl (3.4-5.0); Anion Gap 13.7 mmol/L (6.8-13.8); BUN/Creatinine Ratio 8.9 (9.0-21.6); Bilirubin, Total 0.2 mg/dL (0.0-1.1); Ca. Corrected For Albumin 8.7 mg/dL (8.4-10.2); Calcium * 8.7 mg/dL (7.9-10.9); Carbon Dioxide 25.3 mmol/L (24-32.6); Total Protein 7.8 gm/dL (6.2-8.2)
[2016-09-11 22:08] LABS: Urine Bilirubin Negative (NEGATIVE); Urine Blood Negative /ul (NEGATIVE); Urine Ketone 5 mg/dL (NEGATIVE); Urine Nitrite Negative (NEGATIVE); Urine Protein Negative (NEGATIVE); Urine Specific Gravity 1.015 SP.GR. (1.005-1.010); Urine Urobilinogen Normal (NORMAL); Urine pH 8.5 pH (5.0-7.0)
[2016-09-11 22:16] LABS: Urine Appearance Clear; Urine Bacteria 1+; Urine Color Dark Yellow; Urine RBC None Seen /hpf (0-5); Urine WBC None Seen /hpf (0-5)
== END 2016-09-11 23:59 | disposition home or self-care (01) ==
LOC: ER 20:55
DX: R10.31 Right lower quadrant pain (principal); K59.00 Constipation, unspecified; Z57.31 Occupational exposure to environmental tobacco smoke; I10 Essential (primary) hypertension; F41.8 Other specified anxiety disorders

== ENCOUNTER 2016-09-26 19:11 | Emergency (ER) | payer MEDICAID ==
[2016-09-27] MEDS ORDERED: HYDROcodone/ACETAMINOPHEN 1 EACH TABLET PO ONE (00:41)
[2016-09-27] MEDS ORDERED: CEPHALEXIN MONOHYDRATE 250 MG CAPSULE PO ONE (00:41)
--- OUTSIDE RECORDS SUMMARY | 2016-09-27 00:41 | XMS REPORT | Continuity of Care Document ---
:1975 Author Organization [employer] [place] [address] Care Team Providers Name Role Phone Provider, None Per Patient Primary Care Provider Unavailable Source Comments This disclosure is being made pursuant to the [employer] program and maynot contain all information available regarding this patient.[employer] Active Allergies and Adverse Reactions Allergen Noted [...]
--- OUTSIDE RECORDS SUMMARY | 2016-09-27 00:42 | XMS REPORT | Continuity of Care Document ---
:1975 Author Organization [facility] ([facility]) Address [address] [place] [address] Phone [phone] Care Team Providers Name Role Phone Silvano Lemus Primary Care Provider [phone] Source Comments This disclosure is being made pursuant to the Care Everywhere program, applicable federal and state laws, and may not contain all informaitonavailable regarding this patient.[facility] ([facility]) Active Allergies and Adverse Reactions Allergen [...] mouth every 8 hours as needed (anxiety). QUEtiapine 25 mg Take 1 tablet 120 tablet 0 08/28/2016 Discontinued tablet (25 mg total) 7 by mouth every 6 hours as needed (anxiety). Active Problems Problem Noted Date Bipolar disorder with severe depression 08/06/2016 Borderline personality disorder 08/05/2016 Suicidal risk 08/05/2016 Urinary incontinence 06/01/2016 Narcotic habituation, continuous 02/06/2016 Overview: See [place] Prescription Medication Program for multiple narcotic and [...] NEEDED 08/29/2016 Surgery Psy ECT Service Silvano Mcbride ECT-ECT H, MD TREATMENT-NO CONSENT NEEDED 08/28/2016 Anesthesia Event Psy ECT Service Janice Nicole, [employer]HALT [employer]ANT OPERATOR 08/27/2016 Surgery Psy ECT Service Silvano Mcbride ECT-ECT MD Viktoria TREATMENT-NO CONSENT NEEDED 08/26/2016 Anesthesia Event Psy ECT Service Roger Dent 08/25/2016 Surgery Psy ECT Service Ravi Lawrence MD ECT-ECT TREATMENT-NO CONSENT NEEDED 08/22/2016 Surgery Psy ECT Service Silvano Mcbride ECT-ECT MD Viktoria TREATMENT-NO CONSENT NEEDED 08/21/2016 Anesthesia Event Psy ECT Service Christina Breen, DDS 08/20/2016 Anesthesia Event Psy ECT Service Raegan Simpson, [employer] OPERATOR 08/20/2016 Anesthesia Event Psy ECT Service Sonu Barroso, [employer] OPERATOR 08/20/2016 Surgery Psy ECT Service Silvano Mcbride ECT-ECT MD Viktoria TREATMENT-NO CONSENT NEEDED 08/18/2016 Surgery Psy ECT Service Yani Bundy, ECT-ECT TREATMENT-NO CONSENT NEEDED 08/17/2016 Anesthesia Event Psy ECT Service Nicolas Perales, [employer] OPERATOR 08/15/2016 Surgery Psy ECT Service Silvano Mcbride ECT-ECT MD Viktoria TREATMENT-NO CONSENT NEEDED 08/13/2016 Anesthesia Event Psy ECT Service Jay Thompson, [employer] OPERATOR 08/13/2016 Anesthesia Event Psy ECT Service Thom Moore 08/13/2016 Surgery Psy ECT Service Margaret Peña ECT-ECT A, DO TREATMENT-NO CONSENT NEEDED 08/11/2016 Surgery Psy ECT Service Yani Bundy, ECT-ECT TREATMENT-NO CONSENT NEEDED 08/09/2016 Surgery Radiology Radiologist, Rad Canceled IR Invasive PICC 08/08/2016 Anesthesia Event Psy ECT Service Polo Alarcon MD 08/08/2016 Surgery Psy ECT Service Silvano Mcbride ECT-INITIAL MD Viktoria TREATMENT 08/07/2016 Anesthesia Event Psy ECT Service Lexis Ortiz 08/05/2016 - Hospital Encounter Behavioral Health PfvaNicolas torres, Dx: Suicidal risk 08/29/2016 Inpatient - Adult (Primary Dx) Silvano Mcbride MD Black, Donald W, MD Nam, Ki Won, MD Crocker, Erin, MD Himadi, Aniya, MD 08/04/2016 - Hospital Encounter General Care Ahmed, Dx: Other urinary 08/05/2016 Inpatient - Adult MD Steve incontinence Willoughby, Fareed, (Primary Dx) Nathaly Brown MD 08/04/2016 Telephone Internal Medicine - Roro Cheng Chief Comp: Primary Bere, Consultation 07/28/2016 Office Visit Neurosurgery Mendez Aleman Chief Comp: Patient G, MD Reported Reason For Visit 07/28/2016 Nurse Triage General Care Yanira Wright Chief Comp: 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, 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 07/25/2016 Hospital Encounter Neurology Harley [...] 1.714 m (5' 7.48") 08/05/2016 9:19 PM BANANA LOADER Weight 144.1 kg (317 lb 10.9 oz) 08/28/2016 9:00 AM CDT Body Mass Index 49.05 08/28/2016 9:00 AM CDT Oxygen Saturation 98% 08/29/2016 8:30 AM CDT Plan of Care Date Type Specialty Providers Description 09/29/2016 Appointment Psychiatry Nila Tesfaye DO Chief Comp: Patient [address] [place] [address] [phone] (Fax) Health Maintenance Due Date Last Done Comments Hepatitis B Vaccine (1 of 3 - Primary Series) 1975 Tdap Vaccine 1988 MMR Vaccine 1995 Td Vaccine 1995 Pneumococcal Vaccine (1 of 1 - PPSV23) 1996 Cervical Cancer Screening 2007 05/10/2002 Lipid Disorder Screening 08/15/2021 08/15/2016 Influenza Vaccine: Seasonal Completed 08/25/2012 Procedures from Last 3 Months Procedure Name [...] 08/22/2016 8:50 AM Bipolar disorder CONSENT NEEDED BANANA LOADER with severe depression ABSTRACTED BY Routine 08/22/2016 8:31 AM Bipolar disorder Results for this BILLING STAFF BANANA LOADER with severe procedure are in depression the results section. ECT-ECT TREATMENT-NO 08/20/2016 10:37 AM Bipolar disorder CONSENT NEEDED BANANA LOADER with severe depression ABSTRACTED BY Routine 08/20/2016 8:40 AM Bipolar disorder Results for this BILLING STAFF BANANA LOADER with severe procedure are in depression the results section. ECT-ECT TREATMENT-NO 08/18/2016 10:51 AM Bipolar disorder CONSENT NEEDED BANANA LOADER with severe depression ABSTRACTED BY Routine 08/18/2016 9:40 AM Bipolar disorder Results for this BILLING STAFF BANANA LOADER with severe procedure are in depression the results section. ABSTRACTED BY Routine 08/15/2016 9:32 AM Bipolar disorder Results for this BILLING STAFF BANANA LOADER with severe procedure are in depression the results section. ECT-ECT TREATMENT-NO 08/15/2016 8:10 AM Bipolar disorder CONSENT NEEDED BANANA LOADER with severe depression ECT-ECT TREATMENT-NO 08/13/2016 10:39 AM Bipolar disorder CONSENT NEEDED BANANA LOADER with severe depression ABSTRACTED BY Routine 08/13/2016 8:59 AM Bipolar disorder Results for this BILLING STAFF BANANA LOADER with severe procedure are in depression the results section. ECT-ECT TREATMENT-NO 08/11/2016 11:30 AM Bipolar disorder CONSENT NEEDED BANANA LOADER with severe depression ABSTRACTED BY Routine 08/11/2016 10:51 AM Bipolar disorder Results for this BILLING STAFF BANANA LOADER with severe procedure are in depression the results section. ABSTRACTED BY Routine 08/08/2016 3:41 PM Bipolar disorder Results for this BILLING STAFF BANANA LOADER with severe procedure are in depression the results section. ECT-INITIAL 08/08/2016 10:50 AM Bipolar disorder TREATMENT BANANA LOADER with severe depression Results from Last 3 Months PSY OR CASE (08/29/2016 8:10 AM) Silvano Elliott MD 08/29/20168:10 AM OR CASE: ECT-ECT TREATMENT-NO [...] capsule 60 mg60 mg Oral 2X/Day Huy Brziuela MD 60 mg at 08/28/162027 gabapentin (NEURONTIN) capsule 1,200 mg1,200 mg Oral 3X/Day Huy Brizuela MD 1,200 mg at 08/28/162027 glycopyrrolate (ROBINUL) 0.2 mg/mL injection 0.4 mg0.4 mg Intravenous ECT PRN Silvano Mcbride MD 0.4 mg at 08/27/16 075 ibuprofen (MOTRIN) tablet 800 mg800 mg Oral [...] procedure. Resident:None Silvano Mcbride MD Associate (clinical) cow buyer DIFFERENTIAL (08/27/2016 8:59 AM) Component Value Range % Neutrophils-Auto Diff 63.2 % Neutrophils-Auto Diff 2960 6295-4112 /MM3 % Lymphocytes-Auto Diff 25.0 % Lymphocytes-Auto Diff 5893 128-6031 /MM3 % Monocytes-Auto Diff 5.6 % Monocytes-Auto [...] Abnormality Status --------- ------ CBC (COMPLETE BLOOD COUNT)[[id number]] AbnormalFinal result DIFFERENTIAL[[id number]] Final result Please view results for these tests on the individual orders. PSY OR CASE (08/27/2016 8:03 AM) Silvano Elliott MD 08/27/20168:03 AM OR CASE: ECT-ECT TREATMENT-NO [...] PRN Nicolas Buckner MD 50 mg at 08/26/162124 sodium chloride 0.9% flush syringe 10 mL10 [...] procedure. Resident:None Silvano Mcbride MD Associate (clinical) cow buyer PSY OR CASE (08/25/2016 8:43 AM) Narrative [...] PRN Huy Brizuela MD 650 mg at 08/24/16 1659 [...] QHS Huy Brizuela MD 250 mg at 08/24/16 2105 Time Out Verification: Immediately prior to the [...] the entire procedure. Resident:None Ravi Lawrence MD Studio Operations Engineer In Charge, Psychiatry PSY OR CASE (08/22/2016 8:31 AM) [...] QHS Huy Brizuela MD 250 mg at 08/21/16 2050 Time Out Verification: Immediately prior to the [...] procedure. Resident:None Silvano Mcbride MD Associate (clinical) cow buyer PSY OR CASE (08/20/2016 8:40 AM) Narrative [...] injection 0.4 mg0.4 mg Intravenous ECT PRN Silvaon Mcbride MD 0.4 mg at 08/15/16 0907 [...] tablet 50 mg50 mg Oral QHS PRN YvonneNicolas torres MD sodium chloride 0.9% flush syringe 10 [...] the entire procedure. Resident:None Ravi Lawrence MD Studio Operations Engineer In Charge, Psychiatry PSY OR CASE (08/18/2016 9:40 AM) [...] Huy Brizuela MD 10 mg at 08/14/16 2141 DULoxetine (CYMBALTA) delayed release capsule 60 mg60 [...] packet 17 g17 g Oral QPM AC Mary GraceohNicolas torres MD prazosin (MINIPRESS) capsule 3 mg3 mg Oral QHS Silvano Hawthorne MD 3 mg at 08/14/16 214 QUEtiapine (SEROquel) tablet 100 mg100 mg Oral QHS Huy Brizuela MD 100 mg at 08/14/16 214 QUEtiapine (SEROquel) tablet 25 mg25 mg Oral [...] Hawthorne MD 100 mg at 08/06/16 2148 Time Out Verification: Immediately prior to the [...] the entire procedure. Resident:None Yani Bundy MD Web Site Administrator (clinical) cow buyer ECG - EKG 12 LEAD (08/15/2016 2:29 [...] PRN Huy Brizuela MD 10 mg at 08/13/162099 DULoxetine (CYMBALTA) delayed release capsule 60 mg60 [...] QHS Silvano Hawthorne MD 3 mg at 08/13/16 2159 QUEtiapine (SEROquel) tablet 25 mg25 mg Oral Q6H PRN Huy Brizuela MD 25 mg at 08/13/16 2159 sodium chloride 0.9% flush syringe 10 mL10 [...] the entire procedure. Resident:None Yani Bundy MD Web Site Administrator (clinical) cow buyer LIPID PANEL (08/15/2016 9:20 AM) Component Value Range Specimen Type Fasting Cholesterol 218Comment: mg/dL Reference Range: Less than 200 mg/dL - desirable 200 - 240 mg/dL - increased risk Above 240 mg/dL - significant risk Triglycerides 219(H)Comment: 0-150 mg/dL Reference Ranges: Normal:<150 mg/dL Borderline-high:150-199 mg/dL High: 200-499 mg/dL Very high: > rq=631 mg/dL HDL Cholesterol 39(L) >=41 mg/dL LDL - Calculated 135(H) <=130 mg/dL Non-HDL Cholesterol (Calc) 179Comment: mg/dL The reference ranges for Non-HDL-C are based on National Cholesterol Education III guidelines: Desirable: <130 mg/dL Borderline High: 130-159 mg/dL High:160-189 mg/dL Very High: > qr=246 mg/dL Specimen Blood PSY OR CASE (08/13/2016 [...] 0.1 mg0.1 mg Oral 2X/Day PRN Huy Briuzela MD cyclobenzaprine (FLEXERIL) tablet 10 mg10 mg [...] Silvano Hawthorne MD 3 mg at 08/10/162108 sodium chloride 0.9% flush syringe 10 mL10 mL Intravenous PRN Huy Brizuela MD sodium chloride 0.9% flush syringe 20 mL20 mL Intravenous PRN Huy Brizuela MD succinylcholine (QUELICIN) 20 mg/mL injection 200 mg200 mg Intravenous ECT PRN Silvano Mcbride MD 200 mg at 08/11/16 101 traZODone (DESYREL) tablet 100 mg100 mg Oral QHS PRN Silvano Hawthorne MD 100 mg at 08/06/16 214 traZODone (DESYREL) tablet 200 mg200 mg Oral QHS Huy Brizuela MD 200 mg at 08/10/16 7131 Time Out Verification: Immediately prior to the [...] the entire procedure. Resident:None Margaret Peña DO Web Site Administrator (clinical) cow buyer PICC LINE REQUEST (08/12/2016 1:07 PM) Ana Thayer RN 08/12/20161:07 PM Procedure PICC Line Insertion, 08/12/2016 Consent for Procedure The procedure was explained to the patient including risks and benefits.Patient signed consent form and wishes to proceed. A time out was performed at bedside. Location: Patient room Description of Procedure The float operator performed proper hand hygiene and utilized [...] [employer] PICC SOLO catheter (Lot number [id number]) was inserted into the tear-away sheath.Blood was [...] There were no immediate complications. Staff Ana Locke RN-BSN Nurse Clinical Specialist PICC Service CHEST [...] Results - ThuAug 12, 2016 12:41 PM BANANA LOADER Procedure: CHEST - AP/PA Technique: Portable AP [...] 3X/Day Huy Brizuela MD 1,200 mg at 08/10/16 210 glycopyrrolate (ROBINUL) 0.2 mg/mL injection 0.4 mg0.4 mg Intravenous ECT PRN Silvano Mcbride MD hydrOXYzine HCl (ATARAX) tablet 25 mg25 mg Oral 3X/Day Huy Brizuela MD 25 mg at 08/10/16 1623 ibuprofen (MOTRIN) tablet 600 mg600 mg Oral Q6H PRN Huy Brizuela MD 600 mg at 08/10/16 1441 ketamine (KETALAR) 50 mg/mL injection 225 mg225 [...] gum 2 mg2 mg Oral Q2H PRN Hyu Brizuela MD 2 mg at 08/07/16 0929 [...] Hawthorne MD 3 mg at 08/10/16 210 succinylcholine (QUELICIN) 20 mg/mL injection 200 mg200 mg Intravenous ECT PRN Silvano Mcbride MD 20 mg at 08/08/16 1154 traZODone (DESYREL) tablet 100 mg100 mg Oral QHS PRN Silvano Hawthorne MD 100 mg at 08/06/16 2148 traZODone (DESYREL) tablet 200 mg200 mg Oral QHS Huy Brizuela MD 200 mg at 08/10/16 2108 Time Out Verification: Immediately prior to the [...] entire procedure. Resident: None Ravi Lawrence MD Studio Operations Engineer In Charge, Psychiatry PSY OR CASE (08/08/2016 3:41 PM) [...] 3X/Day Huy Brizuela MD 0.1 mg at 08/08/16826 cloNIDine HCl (CATAPRESS) tablet 0.1 mg0.1 mg Oral 2X/Day PRN Huy Brizuela MD cyclobenzaprine (FLEXERIL) tablet 10 mg10 mg Oral 3X/Day PRN Huy Brizuela MD 10 mg at 08/07/16928 DULoxetine (CYMBALTA) delayed release capsule 60 mg60 mg Oral 2X/Day Huy Brizuela MD 60 mg at 08/08/16826 gabapentin (NEURONTIN) capsule 1,200 mg1,200 mg Oral 3X/Day Huy Brizuela MD 1,200 mg at 08/08/16826 glycopyrrolate (ROBINUL) 0.2 mg/mL injection 0.2 mg0.2 [...] PRN Huy Brizuela MD 2 mg at 08/07/16928 nicotine (NICOTROL) patch 14 mg14 mg Transdermal [...] procedure. Resident:None Silvano Mcbride MD Associate (clinical) cow buyer MRI SPINE LUMBAR WO CONTRAST ([id number]) (08/04/2016 9:01 PM)Only the most recent of2 [...] and emergent preliminary findings reported by the director of radiology vascular surgeon. Narrative Procedure: MRI SPINE LUMBAR WO CONTRAST ([id number]) Indication: r/o disc herniation and spinal cord [...] - Tue Aug 05, 2016 11:24 AM BANANA LOADER Procedure: MRI SPINE LUMBAR WO CONTRAST ([id number]) Indication: r/o disc herniation and spinal cord [...] and emergent preliminary findings reported by the director of radiology vascular surgeon. C-REACTIVE PROTEIN (08/04/2016 8:06 PM) Component Value [...] LEVEL (08/04/2016 8:06 PM) Component Value Range [place] Drug Level <0.10(L)Comment: 0.40-1.20 mEq/L Therapeutic range:0.6-1.2 [...] and reviewed. MRI SPINE CERVICAL WO CONTRAST ([id number]) (07/24/2016 8:00 PM) Impressions Impression: Postsurgical changes of C6-C7 ACDF No evidence of acute injury. This final report is in agreement with the critical and emergent preliminary findings reported by the director of radiology vascular surgeon. Narrative Procedure: MRI SPINE CERVICAL WO CONTRAST ([id number]) Indication: Weakness of the right lower extremity [...] Results - ThuJul 25, 2016 2:48 PM BANANA LOADER Procedure: MRI SPINE CERVICAL WO CONTRAST ([id number]) Indication: Weakness of the right lower extremity [...] and emergent preliminary findings reported by the director of radiology vascular surgeon. MRI SPINE THORACIC WO CONTRAST ([id number]) (07/24/2016 12:49 AM) Impressions Impression: 1. Stable [...] Narrative Procedure: MRI SPINE THORACIC WO CONTRAST ([id number]) Indication: Fall with RLE weakness and mid-back [...] Procedure Note Ron, Incoming Imaging Results - [facility] Jul 24, 2016 6:56 PM BANANA LOADER Procedure: MRI SPINE THORACIC WO CONTRAST ([id number]) Indication: Fall with RLE weakness and mid-back [...]
[2016-09-27] MEDS ORDERED: CEPHALEXIN MONOHYDRATE 250 MG CAPSULE ONE (00:44)
[2016-09-27] MEDS ORDERED: HYDROcodone/ACETAMINOPHEN 1 EACH TABLET ONE ×2 (00:45→00:46)
[2016-09-27] MEDS ORDERED: NORMAL SALINE 1,000 ML IV PRN (01:11)
--- NOTE | 2016-09-27 01:41 | ERNOTE ---
Medical Problem HPI - Narrative Date of Service: 09/27/16 - General Chief Complaint: General Assessment Source: patient Exam Limitations: no limitations - Immun/Allergies/Home Medications Immunizations: IMMUNIZATION HX Immunizations Up to Date Yes History of Influenza Vaccine Yes Hx Pneumococcal Vaccination No Allergies/Adverse Reactions: Allergies celecoxib [From Celebrex] Allergy (Intermediate, Verified 09/11/16 21:04) Hives ketorolac tromethamine [From Toradol] Allergy (Intermediate, Verified 09/11/16 21:04) Hives morphine Adverse Reaction (Intermediate, Verified 09/11/16 21:04) Itching Home Medications: HOME MEDICATIONS Gabapentin [Neurontin] 1,200 mg PO TID 03/22/14 [Last Taken 08/22/15 23:00] Ibuprofen [Motrin] 800 mg PO QID PRN 07/25/15 [Last Taken 01/24/16 19:00] Prazosin HCl 3 mg PO HS 01/03/16 [Last Taken Unknown] Duloxetine HCl [Cymbalta] 60 mg PO BID 09/11/16 [Last Taken Unknown] Omeprazole [Prilosec] 20 mg PO DAILY 09/11/16 [Last Taken Unknown] Cephalexin Monohydrate [Keflex] 500 mg PO Q8H #15 capsule 09/27/16 [Last Taken Unknown] HYDROcodone/ACETAMINOPHEN [Shonto 5-325] 1 each PO Q6H PRN #15 tablet 09/27/16 [ Last Taken Unknown] - History of Present History Narrative: Two day history of left breast pain that has gotten worse. The pain is near the nipple. There was a serous discharge from the nipple. Denies any redness, abscess formation, fevers, chills or pain at the axilla. There has not been history of breast cancer, however her grand mother had breast cancer. Date (Duration): 09/24/16 Timing: getting worse Severity: moderate Modifying Factors - (Improves): Present: other Modifying Factors - (Worsens): Present: other - none Review of Systems - Review of Systems Constitutional: Present: no symptoms reported EYE: Present: no symptoms reported ENT: Present: no symptoms reported Respiratory: Present: no symptoms reported Cardiology: Present: no symptoms reported Gastrointestinal/Abdominal: Present: no symptoms reported Genitourinary: Present: no symptoms reported Musculoskeletal: Present: no symptoms reported Skin: Present: no symptoms reported Neurological: Present: no symptoms reported Endocrine: Present: no symptoms reported Hematologic/Lymphatic: Present: no symptoms reported - Patient's Past Medical History Patient History - Medical: Anxiety, Chronic Pain, Depression, Obesity, Osteoarthritis Patient History - Cardiac/Respiratory: Hypertension Patient History - Cancer: No Hx of Cancer Patient History - Surgical Procedures: Back Surgery, , D & C, Tubal Ligation, T & A Patient History - Other: None LMP (females 10-50): last week LMP (Calendar): 01/10/16 - Family History Mother Family History - Medical: Diabetes Type 1 Family History - Cardiac/Respiratory: CVA/Stroke, Hypertension Father Family History - Medical: Diabetes Type 2 Family History - Cardiac/Respiratory: CVA/Stroke, Hypertension - Social History Living Situations: spouse Abuse History: No History of abuse, Hx of Substance Use Psych History: Hx of Anxiety, Hx of Depression, Hx of Suicide Attempt, Hx of Psychiatric Tx, Current tx/ever been on anti-depressants or anti-anxiety meds Does anyone smoke in the home?: Yes Smoking Status: Current every day smoker Do you dip or chew tobacco: No Alcohol Use: rarely Drug Use: marijuana - Immunizations Immunizations Up to Date: Yes Hx Pneumococcal Vaccination: No History of Influenza Vaccine: Yes Physical Exam - Physical Exam Narrative: morbidly obese, and cooperative. General Appearance: Present: no apparent distress Eye Exam: Normal inspection: bilateral, PERRL: bilateral Ears, Nose, Throat: Present: normal ENT inspection Neck: Present: normal inspection Respiratory: Present: no respiratory distress Cardiovascular/Chest: Present: regular rate, rhythm, other - no deformity of the nipple. Tenderness at the area at the 12 o'clock position, notty, with tenderness. No discharge from the nipple. Gastrointestinal/Abdominal: Present: nondistended Extremity Exam: Present: normal inspection Neurological Exam: Present: alert, oriented, normal mood/affect, grade tamper II-XII nml as tested Skin Exam: Present: normal color ED Progress - Vital Signs Vital Signs: Vital Signs 09/26/16 19:54 Temperature 36.9 C Pulse Rate 102 H Respiratory 16 Rate Blood Pressure 153/93 O2 Sat by Pulse 98 Oximetry - Progress/Reassessment Chief Complaint: General Assessment Progress Note-Subjective: 09/27/16 01:34 Given Shonto 10/325 mg; and Keflex 500 mg po. Plan - Plan Plan: The patient will be given keflex and Shonto to be taken at home. She has been advised to have a mamogram done. There may be an underlying abscess vs fibro cystic disease vs breast cancer. Departure - Departure Clinical Impression: Breast pain, left Disposition: Home self-care Condition: Fair Instructions: Breast Tenderness Print Language: Urugu[place] Additional Instructions: If the pain worsens return to the ED. Prescriptions: Cephalexin Monohydrate [Keflex] 500 mg PO Q8H #15 capsule HYDROcodone/ACETAMINOPHEN [Shonto 5-325] 1 each PO Q6H PRN #15 tablet PRN Reason: Pain
[2016-09-27 01:48] VITALS: BP 149/74
== END 2016-09-27 01:49 | disposition home or self-care (01) ==
LOC: ER 19:11
DX: N64.4 Mastodynia (principal); N64.52 Nipple discharge; F17.210 Nicotine dependence, cigarettes, uncomplicated; E66.01 Morbid (severe) obesity due to excess calories

== ENCOUNTER 2016-10-27 23:07 | Emergency (ER) | payer SELFPAY ==
--- NOTE | 2016-10-28 00:11 | ERNOTE ---
Medical Problem HPI - General Chief Complaint: General Assessment Time Seen by Provider: 10/28/16 00:02 Source: patient Exam Limitations: no limitations - Immun/Allergies/Home Medications Immunizations: IMMUNIZATION HX Immunizations Up to Date Yes History of Influenza Vaccine Yes Hx Pneumococcal Vaccination No Allergies/Adverse Reactions: Allergies celecoxib [From Celebrex] Allergy (Intermediate, Verified 09/11/16 21:04) Hives ketorolac tromethamine [From Toradol] Allergy (Intermediate, Verified 09/11/16 21:04) Hives morphine Adverse Reaction (Intermediate, Verified 09/11/16 21:04) Itching Home Medications: HOME MEDICATIONS Gabapentin [Neurontin] 1,200 mg PO TID 03/22/14 [Last Taken 08/22/15 23:00] Prazosin HCl 3 mg PO HS 01/03/16 [Last Taken Unknown] Duloxetine HCl [Cymbalta] 60 mg PO BID 09/11/16 [Last Taken Unknown] Omeprazole [Prilosec] 20 mg PO DAILY 09/11/16 [Last Taken Unknown] Cephalexin [Keflex] 500 mg PO QID #28 capsule 10/28/16 [Last Taken Unknown] - History of Present History Narrative: Here for painful left breast. Pt states that she has been seen and diagnosed with breast "lumps" and her doctor has suggested a mammogram. Pt states she has no insurance for a mammogram so she decided to come into the ER to get a mammogram because "it's covered when it's an emergency". Review of Systems - Review of Systems Constitutional: Present: no symptoms reported EYE: Present: no symptoms reported ENT: Present: no symptoms reported Respiratory: Present: no symptoms reported Cardiology: Present: no symptoms reported Gastrointestinal/Abdominal: Present: no symptoms reported Genitourinary: Present: no symptoms reported Skin: Present: other - left breast skin redness and pain. - Patient's Past Medical History Patient History - Medical: Anxiety, Chronic Pain, Depression, Obesity, Osteoarthritis Patient History - Cardiac/Respiratory: Hypertension Patient History - Cancer: No Hx of Cancer Patient History - Surgical Procedures: Back Surgery, , D & C, Tubal Ligation, T & A Patient History - Other: None LMP (females 10-50): last week LMP (Calendar): 01/10/16 - Family History Mother Family History - Medical: Diabetes Type 1 Family History - Cardiac/Respiratory: CVA/Stroke, Hypertension Father Family History - Medical: Diabetes Type 2 Family History - Cardiac/Respiratory: CVA/Stroke, Hypertension - Social History Living Situations: home Abuse History: No History of abuse, Hx of Substance Use Psych History: Hx of Anxiety, Hx of Depression, Hx of Suicide Attempt, Hx of Psychiatric Tx, Current tx/ever been on anti-depressants or anti-anxiety meds Does anyone smoke in the home?: Yes Smoking Status: Current every day smoker Patient requests Smoking Cessation Consult: No Initiate information on Smoking Cessation: No Alcohol Use: rarely Drug Use: marijuana - Immunizations Immunizations Up to Date: Yes Hx Pneumococcal Vaccination: No History of Influenza Vaccine: Yes Physical Exam - Physical Exam General Appearance: Present: wd/wn, alert, no apparent distress Respiratory: Present: no respiratory distress, normal breath sounds, no accessory muscle use, chest nontender, lungs clear, other - the skin just above left nipple is slightly red, warm and tender to palpation. I do feel some glandular tissue under the area which is red, no streaking or other lesions noted. no nipple abnormalities, no discharge from left nipple Cardiovascular/Chest: Present: regular rate, rhythm, no murmur, normal peripheral pulses ED Progress - Vital Signs Patient's Vital Signs:: I have reviewed the patient's vital signs. Vital Signs: Vital Signs 10/27/16 23:15 Temperature 37.0 C Pulse Rate 106 H Respiratory 18 Rate Blood Pressure 150/104 O2 Sat by Pulse 97 Oximetry - Progress/Reassessment Chief Complaint: General Assessment Departure - Departure Clinical Impression: Mastitis Disposition: Home self-care Condition: Good Instructions: Mastitis, [id number] Referrals: Silvano Lemus MD [Primary Care Provider] - Prescriptions: Cephalexin [Keflex] 500 mg PO QID #28 capsule
--- OUTSIDE RECORDS SUMMARY | 2016-10-28 00:18 | XMS REPORT | Continuity of Care Document ---
:1975 Author Organization [facility] [place] [place] [address] Care Team Providers Name Role Phone Provider, None Per Patient Primary Care Provider Unavailable Source Comments This disclosure is being made pursuant to the [employer] program and maynot contain all information available regarding this patient.[facility] Active Allergies and Adverse Reactions Allergen Noted Date Severity Reactions Comments Celecoxib 03/23/2014 Low Rash Ketorolac 03/23/2014 Low Rash Current Medications Be aware that medications may not be up to date as of this document. Alwaysverify current medications with the patient. Prescription Sig. Disp. Refills Start Date End Date Status gabapentin Take 3 capsules 135 capsule 1 06/22/2014 Active (NEURONTIN) 400 MG by mouth 3 capsule (three) times daily. 2 week supply prazosin Take 1 capsule by 15 capsule 1 06/22/2014 Active (MINIPRESS) 1 MG mouth nightly. 2 capsule week supply venlafaxine HCl Take 3 capsules 45 capsule 1 06/22/2014 Active (EFFEXOR-XR) 75 MG by mouth daily 24 hr capsule with breakfast. 2 week supply HYDROcodone-acetami Take 1 tablet by Active nophen (NORCO) mouth every 4 5-325 MG per tablet (four) to 6 (six) [...] 50 MG mouth nightly. tablet zolpidem (AMBIEN) Take 1 tablet by 30 tablet 0 01/12/2015 Active 10 MG tablet mouth nightly as needed for Sleep. hydrOXYzine Take 1 capsule by 60 capsule 0 01/12/2015 Active (VISTARIL) 50 MG mouth 3 (three) capsule times daily as needed for Anxiety. Indications: Feeling Anxious metoprolol Take 1 tablet by 30 tablet 0 01/12/2015 Active succinate mouth daily. (TOPROL-XL) 25 MG 24 hr tablet prazosin Take 1 capsule by 30 capsule 0 01/12/2015 Active (MINIPRESS) 1 MG mouth nightly. capsule cephALEXin (KEFLEX) Take 1 capsule by 30 capsule 0 09/30/2016 10/10/2016 500 MG capsule mouth 3 (three) times daily. 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 at 10 o'clock position (Primary Dx) Immunizations Name Dates Previously Given Next Due Influenza Split 03/24/2013 Social History Tobacco Use Types Packs/Day Years Used Date Current Every Day Smoker Cigarettes 1 Smokeless Tobacco: Never Used Tobacco Cessation:Ready to Quit: No; Counseling Given: Yes Comments: Alcohol Use Drinks/Week oz/Week Comments Yes 0 Standard drinks or equivalent 0.0 Alcoholic Drinks/day: CURRENT ALCOHOL USER rarely not weekly Last Filed Vital Signs Vital Sign Reading Time Taken Blood Pressure 136/99 09/30/2016 6:41 PM CDT Pulse 125 09/30/2016 6:41 PM CDT Temperature 36.3 C (97.3 F) 09/30/2016 6:41 PM CDT Respiratory Rate 18 01/12/2015 7:55 AM CDT Height 1.702 m (5' 7") 09/30/2016 6:41 PM CDT Weight 141.976 kg (313 lb) 09/30/2016 6:41 PM CDT Body Mass Index 49.01 09/30/2016 6:41 PM CDT Oxygen Saturation 98% 09/30/2016 6:41 PM CDT Plan of Care Health Maintenance Due Date Last Done Comments Pneumococcal Medium Risk 19-64 yo (1 of 1 - PPSV23) 1996 Tetanus/Pertussis (1 - Tdap) 1996 Pap Smear 1998 Influenza Immunization (#1) 2016 03/24/2013 Results from Last 3 Months Not on file
--- OUTSIDE RECORDS SUMMARY | 2016-10-28 00:19 | XMS REPORT | Continuity of Care Document ---
:1975 Author Organization [facility] Address [address] [place] [address] Phone [phone] Care Team Providers Name Role Phone Silvano Lemus Primary Care Provider [phone] Source Comments This disclosure is being made pursuant to the Care Everywhere program, applicable federal and state laws, and may not contain all informaitonavailable regarding this patient.[facility] Active Allergies and Adverse Reactions Allergen Noted Date Severity Reactions Comments Celecoxib 08/27/2012 Rash Ketorolac Tromethamine Urticaria (Hives) Current Medications Prescription Sig. Disp. Refills Start Date End Date Status ibuprofen 800 mg tablet Take 800 mg by Active mouth as needed for Pain. acetaminophen 500 mg Take 500 mg by Active tablet mouth as needed. cyclobenzaprine 10 mg Take 1 tablet 30 tablet 0 08/28/2016 Active tablet (10 mg total) by mouth 3 times daily as needed for Muscle spasms. DULoxetine 60 mg XR Take 1 capsule 60 capsule 1 08/28/2016 Active capsule (60 mg total) by mouth 2 times daily. gabapentin 400 mg Take 3 capsules 90 capsule 1 08/28/2016 Active capsule (1,200 mg total) by mouth 3 times daily. omeprazole 20 mg Take 1 capsule 30 capsule 2 08/28/2016 Active enteric coated capsule (20 mg total) by mouth daily. prazosin 1 mg capsule Take 3 capsules 90 capsule 11 08/28/2016 Active (3 mg total) by mouth at bedtime. QUEtiapine 100 mg Take 1 tablet 30 tablet 1 08/28/2016 Active tablet (100 mg total) by mouth at bedtime as needed (sleep). traZODone 50 mg tablet Take 5 tablets 150 tablet 1 08/28/2016 Active (250 mg total) by mouth at bedtime. QUEtiapine 25 mg tablet Take 1 tablet 90 tablet 1 08/29/2016 Active (25 mg total) by mouth every 8 hours as needed (anxiety). Active Problems Problem Noted Date Bipolar disorder with severe depression 08/06/2016 Borderline personality disorder 08/05/2016 Suicidal risk 08/05/2016 Urinary incontinence 06/01/2016 Narcotic habituation, continuous 02/06/2016 Overview: See [place] Prescription Medication Program for multiple narcotic and [...] Recent Encounters Date Type Specialty Providers Description 09/29/2016 Office Visit Psychiatry Nila Tesfaye Chief Comp: Patient J, DO Reported Reason For Visit 09/09/2016 Office Visit Behavioral Health Margaret Peña Dx: Bipolar disorder A, DO with severe depression (Primary Dx) 09/01/2016 Surgery Psy ECT Service Yani Bundy MD Canceled ECT-ECT TREATMENT-NO CONSENT NEEDED 08/29/2016 Surgery Psy ECT Service Silvano Mcbride, ECT-ECT TREATMENT-NO MD CONSENT NEEDED 08/28/2016 Anesthesia Event Psy ECT Service Janice Nicole Hermann, MANAGER QA 08/27/2016 Surgery Psy ECT Service Silvano Mcbride, ECT-ECT TREATMENT-NO CONSENT NEEDED 08/26/2016 Anesthesia Event Psy ECT Service Roger Dent 08/25/2016 Surgery Psy ECT Service Ravi Lawrence MD ECT-ECT TREATMENT-NO CONSENT NEEDED 08/22/2016 Surgery Psy ECT Service Silvano Mcbride, ECT-ECT TREATMENT-NO CONSENT NEEDED 08/21/2016 Anesthesia Event Psy ECT Service Christina Breen, DDS 08/20/2016 Anesthesia Event Psy ECT Service Raegan Simpson, MANAGER QA 08/20/2016 Anesthesia Event Psy ECT Service Sonu Barroso, MANAGER QA 08/20/2016 Surgery Psy ECT Service Silvano Mcbride, ECT-ECT TREATMENT-NO CONSENT NEEDED 08/18/2016 Surgery Psy ECT Service Yani Bundy MD ECT-ECT TREATMENT-NO CONSENT NEEDED 08/17/2016 Anesthesia Event Psy ECT Service Nicolas Perales, MANAGER QA 08/15/2016 Surgery Psy ECT Service Silvano Mcbride, ECT-ECT TREATMENT-NO CONSENT NEEDED 08/13/2016 Anesthesia Event Psy ECT Service Jay Thompson, MANAGER QA 08/13/2016 Anesthesia Event Psy ECT Service Thom Moore 08/13/2016 Surgery Psy ECT Service Margaret Peña ECT-ECT TREATMENT-NO A, DO CONSENT NEEDED 08/11/2016 Surgery Psy ECT Service Yani Bundy MD ECT-ECT TREATMENT-NO CONSENT NEEDED 08/09/2016 Surgery Radiology Radiologist, Rad Canceled IR PICC Invasive 08/08/2016 Anesthesia Event Psy ECT Service Polo Alarcon MD 08/08/2016 Surgery Psy ECT Service Silvano Mcbride, ECT-INITIAL MD TREATMENT 08/07/2016 Anesthesia Event Psy ECT Service Lexis Ortiz 08/05/2016 - Hospital Encounter Behavioral Health Nicolas Buckner, Dx: Suicidal risk 08/29/2016 Inpatient - Adult MD (Primary Dx) Silvano Mcbride MD Black, Donald W, MD Nam, Ki Won, MD Crocker, Erin, MD Himadi, Elaine, MD 08/04/2016 - Hospital Encounter General Care Ahmed, Dx: Other urinary 08/05/2016 Inpatient - Adult MD Steve incontinence Fareed Willoughby MD (Primary Dx) Nathaly Ray MD 08/04/2016 Telephone Internal Medicine Roro Cheng, Chief Comp: - Primary MD Consultation Immunizations Name Dates Previously Given Next Due [...] 1.714 m (5' 7.48") 08/05/2016 9:19 PM 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 Weight 144.1 kg (317 lb 10.9 oz) 08/28/2016 9:00 AM CDT Body Mass Index 49.05 08/28/2016 9:00 AM CDT Oxygen Saturation 98% 08/29/2016 8:30 AM CDT Plan of Care Date Type Specialty Providers Description 11/12/2016 Appointment Anesthesiology [place], Chief Comp: Patient Wilma, PhD Reported Reason For [address] [place] [address] [phone] (Fax) Health Maintenance Due Date Last Done Comments Hepatitis B Vaccine (1 of 3 - Primary Series) 1977 Tdap Vaccine 1988 MMR Vaccine 1995 Td Vaccine 1995 Pneumococcal Vaccine (1 of 1 - PPSV23) 1996 Cervical Cancer Screening 2007 05/10/2002 Influenza Vaccine: Seasonal (Season Ended) 2017 08/25/2012 Lipid Disorder Screening 08/15/2021 08/15/2016 Procedures [...] 08/22/2016 8:50 AM Bipolar disorder 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 ABSTRACTED BY Routine 08/15/2016 9:32 AM Bipolar disorder Results for this BILLING STAFF 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 with severe procedure are in depression the results section. 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 ABSTRACTED BY Routine 08/08/2016 3:41 PM Bipolar disorder Results for this BILLING STAFF 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 with severe procedure are in depression the results section. ECT-INITIAL 08/08/2016 10:50 AM Bipolar disorder TREATMENT 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 with severe depression Results from Last 3 [...] 30 mL 30 mL Oral Q4H PRN Hyu Brizuela MD 30 mL at 08/17/16 1512 [...] procedure. Resident:None Silvano Mcbride MD Associate (clinical) machine leather trimmer DIFFERENTIAL (08/27/2016 8:59 AM) Component Value Range % Neutrophils-Auto Diff 63.2 % Neutrophils-Auto Diff 2960 [id number] /MM3 % Lymphocytes-Auto Diff 25.0 % Lymphocytes-Auto Diff 4843 602-3288 /MM3 % Monocytes-Auto Diff 5.6 % Monocytes-Auto [...] Abnormality Status --------- ------ CBC (COMPLETE BLOOD COUNT)[[id number]] AbnormalFinal result DIFFERENTIAL[[id number]] Final result Please view results for these [...] QHS Huy Brizuela MD 250 mg at 03/14/17 2016 Time Out Verification: Immediately prior to the [...] procedure. Resident:None Silvano Mcbride MD Associate (clinical) machine leather trimmer PSY OR CASE (08/25/2016 8:43 AM) Ravi Dominguez MD 08/25/20168:43 AM OR CASE: ECT-ECT TREATMENT-NO [...] 2X/Day Huy Brizuela MD 1 g at 08/24/16 210 omeprazole (PriLOSEC) enteric coated capsule 20 mg20 mg Oral Daily Nicolas Buckner MD 20 mg at 08/24/16 0759 polyethylene glycol 3350 (MIRALAX) packet 17 g17 g Oral QPM AC Nicolas Buckner MD 17 g at 08/21/16 1602 prazosin (MINIPRESS) capsule 3 mg3 mg Oral QHS Silvano Hawthorne MD 3 mg at 08/24/16 210 QUEtiapine (SEROquel) tablet 25 mg25 mg Oral [...] Huy Brizuela MD 250 mg at 08/24/16 1823 Time Out Verification: Immediately prior to the [...] the entire procedure. Resident:None Ravi Lawrence MD Senior Director Insight, Psychiatry PSY OR CASE (08/22/2016 8:31 AM) Narrative Silvano Mcbride MD 08/22/20168:31 AM OR CASE: ECT-ECT TREATMENT-NO [...] PRN Silvano Hawthorne MD 100 mg at 08/17/162044 traZODone (DESYREL) tablet 250 mg250 mg Oral [...] procedure. Resident:None Silvano Mcbride MD Associate (clinical) machine leather trimmer PSY OR CASE (08/20/2016 8:40 AM) Narrative [...] the entire procedure. Resident:None Ravi Lawrence MD Senior Director [employer]ight, Psychiatry PSY OR CASE (08/18/2016 9:40 AM) [...] QHS Silvano Hawthorne MD 3 mg at 08/14/162141 QUEtiapine (SEROquel) tablet 100 mg100 mg Oral [...] PRN Silvano Mcbride MD 200 mg at 08/15/16906 traZODone (DESYREL) tablet 100 mg100 mg Oral [...] the entire procedure. Resident:None Yani Bundy MD Position Clerk (clinical) machine leather trimmer ECG - EKG 12 LEAD (08/15/2016 2:29 [...] 30 mL 30 mL Oral Q4H PRN uHy Brizuela MD bisacodyl (DULCOLAX) suppository 10 mg10 mg Rectal PRN uHy Brizuela MD cyclobenzaprine (FLEXERIL) tablet 10 mg10 [...] PRN Huy Brizuela MD 25 mg at 03/01/17 2159 sodium chloride 0.9% flush syringe 10 [...] the entire procedure. Resident:None Yani Bundy MD Position Clerk (clinical) machine leather trimmer LIPID PANEL (08/15/2016 9:20 AM) Component Value Range Specimen Type Fasting Cholesterol 218Comment: mg/dL Reference Range: Less than 200 mg/dL - desirable 200 - 240 mg/dL - increased risk Above 240 mg/dL - significant risk Triglycerides 219(H)Comment: 0-150 mg/dL Reference Ranges: Normal:<150 mg/dL Borderline-high:150-199 mg/dL High: 200-499 mg/dL Very high: > xc=479 mg/dL HDL Cholesterol 39(L) >=41 mg/dL LDL - Calculated 135(H) <=130 mg/dL Non-HDL Cholesterol (Calc) 179Comment: mg/dL The reference ranges for Non-HDL-C are based on National Cholesterol Education III guidelines: Desirable: <130 mg/dL Borderline High: 130-159 mg/dL High:160-189 mg/dL Very High: > mq=064 mg/dL Specimen Blood PSY OR CASE (08/13/2016 [...] the entire procedure. Resident:None Margaret Peña DO Position Clerk (clinical) machine leather trimmer PICC LINE REQUEST (08/12/2016 1:07 PM) Ana Thayer RN 08/12/20161:07 PM Procedure PICC Line Insertion, 08/12/2016 Consent for Procedure The procedure was explained to the patient including risks and benefits.Patient signed consent form and wishes to proceed. A time out was performed at bedside. Location: Patient room Description of Procedure The mucker operator performed proper hand hygiene and utilized [...] [employer] PICC SOLO catheter (Lot number [id number]) was inserted into the tear-away sheath.Blood was [...] Results - ThuAug 12, 2016 12:41 PM 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 Procedure: CHEST - AP/PA Technique: Portable AP [...] Silvano Mcbride MD 20 mg at 08/08/16 115 traZODone (DESYREL) tablet 100 mg100 mg Oral [...] entire procedure. Resident: None Ravi Lawrence MD Senior Director [employer]ight, Psychiatry PSY OR CASE (08/08/2016 3:41 PM) [...] procedure. Resident:None Silvano Mcbride MD Associate (clinical) machine leather trimmer MRI SPINE LUMBAR WO CONTRAST ([id number]) (08/04/2016 9:01 PM) Impressions Impression: 1. Multilevel degenerative and postsurgical [...] and emergent preliminary findings reported by the residential builder director of pupil personnel program. Narrative Procedure: MRI SPINE LUMBAR WO CONTRAST ([id number]) Indication: r/o disc herniation and spinal cord [...] - Tue Aug 05, 2016 11:24 AM 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 Procedure: MRI SPINE LUMBAR WO CONTRAST ([id number]) Indication: r/o disc herniation and spinal cord [...] and emergent preliminary findings reported by the residential builder director of pupil personnel program. C-REACTIVE PROTEIN (08/04/2016 8:06 PM) Component Value Range CRP (C-Reactive Protein) 2.3(H) <=0.5 mg/dL Specimen Blood ERYTHROCYTE SEDIMENTATION RATE (08/04/2016 8:06 PM) Component Value Range ESR (Erythrocyte Sedimentation Rate) 28(H) 0-20 mm/Hr Specimen Whole Blood BASIC METABOLIC PANEL W/ CALCIUM (CHEM 8) (08/04/2016 8:06 PM) Component Value Range Sodium 141 135-145 mEq/L [...] Blood CBC (COMPLETE BLOOD COUNT) (08/04/2016 8:06 PM) Component Value Range WBC Count 9.8 3.7-10.5 [...] LEVEL (08/04/2016 8:06 PM) Component Value Range [place] Drug Level <0.10(L)Comment: 0.40-1.20 mEq/L Therapeutic range:0.6-1.2 mEq/L Toxic:>2.0 mEq/L Specimen Blood
[2016-10-28 00:26] VITALS: BP 124/83
== END 2016-10-28 00:17 | disposition home or self-care (01) ==
LOC: ER 23:07
DX: N61.0 Mastitis without abscess (principal); Z72.0 Tobacco use; I10 Essential (primary) hypertension; F41.8 Other specified anxiety disorders

== ENCOUNTER 2016-11-12 00:25 | Emergency (ER) | payer SELFPAY ==
--- NOTE | 2016-11-12 01:48 | ERNOTE ---
Lower Extremity HPI - General Lower Extremities Pain: knee: right Time Seen by Provider: 11/12/16 01:39 Source: patient Exam Limitations: clinical condition - Immun/Allergies/Home Medications Immunizations: IMMUNIZATION HX Immunizations Up to Date Yes History of Influenza Vaccine Yes Hx Pneumococcal Vaccination Yes Allergies/Adverse Reactions: Allergies Allergy/AdvReac Type Severity Reaction Status Date / Time celecoxib [From Celebrex] Allergy Intermediate Hives Verified 09/11/16 21:04 ketorolac tromethamine Allergy Intermediate Hives Verified 09/11/16 21:04 [From Toradol] morphine AdvReac Intermediate Itching Verified 09/11/16 21:04 Home Medications: HOME MEDICATIONS Gabapentin [Neurontin] 1,200 mg PO TID 03/22/14 [Last Taken 08/22/15 23:00] Prazosin HCl 3 mg PO HS 01/03/16 [Last Taken Unknown] Duloxetine HCl [Cymbalta] 60 mg PO BID 09/11/16 [Last Taken Unknown] Omeprazole [Prilosec] 20 mg PO DAILY 09/11/16 [Last Taken Unknown] HYDROcodone/ACETAMINOPHEN [[facility]] 1 - 2 tab PO Q6H PRN #20 tab 11/12/16 [ Last Taken Unknown] - History of Present Illness Narrative: Twisted knee by stepping into a hole and falling to her right. had some locking of her knee but that has resolved, continues to feel "grinding" when she moves it. Occurred: last week Location of Incident: home Method of Injury: Reports: fell, twisted Reason for Fall: Reports: other - stepped into a hole Loss of Consciousness: Reports: no loss of consciousness Modifying Factors - (Improves): Reports: cold therapy, immobilization Modifying Factors - (Worsens): Reports: movement Other Injuries: Reports: extremities - ankle but that has gotten better Review of Systems - Review of Systems Constitutional: Present: no symptoms reported EYE: Present: no symptoms reported ENT: Present: no symptoms reported Musculoskeletal: Present: See HPI, back pain - that is chronic. Absent: neck pain Skin: Present: no symptoms reported Neurological: Present: other - radiation of pain up thigh from knee. Absent: numbness Endocrine: Present: no symptoms reported Hematologic/Lymphatic: Present: no symptoms reported Psych: Present: no symptoms reported - Patient's Past Medical History Patient History - Medical: Anxiety, Chronic Pain, Depression, Obesity, Osteoarthritis Patient History - Cardiac/Respiratory: Hypertension Patient History - Cancer: No Hx of Cancer Patient History - Surgical Procedures: Back Surgery, , D & C, Tubal Ligation, T & A Patient History - Other: None LMP (females 10-50): last week LMP (Calendar): 01/10/16 - Family History Mother Family History - Medical: Diabetes Type 1 Family History - Cardiac/Respiratory: CVA/Stroke, Hypertension Father Family History - Medical: Diabetes Type 2 Family History - Cardiac/Respiratory: CVA/Stroke, Hypertension - Social History Living Situations: home Abuse History: No History of abuse, Hx of Substance Use Psych History: Hx of Anxiety, Hx of Depression, Hx of Suicide Attempt, Hx of Psychiatric Tx, Current tx/ever been on anti-depressants or anti-anxiety meds Does anyone smoke in the home?: Yes Smoking Status: Current every day smoker Patient requests Smoking Cessation Consult: No Initiate information on Smoking Cessation: No Alcohol Use: rarely Drug Use: marijuana - Immunizations Immunizations Up to Date: Yes Hx Pneumococcal Vaccination: Yes History of Influenza Vaccine: Yes Physical Exam - Physical Exam General Appearance: Present: wd/wn, alert, mild distress Eye Exam: Normal inspection: bilateral Neck: Present: normal inspection, nontender, supple Respiratory: Present: no respiratory distress, no accessory muscle use Extremity Exam: Present: decreased range of motion - of left knee, full extension but less than 90 degrees flexion Neurological Exam: Present: alert, oriented, normal mood/affect, no motor/ sensory deficits Skin Exam: Present: normal color, warm/dry ED Progress - Vital Signs Vital Signs: Vital Signs 11/12/16 00:36 Temperature 37.1 C Pulse Rate 107 H Respiratory 20 Rate Blood Pressure 139/109 O2 Sat by Pulse 98 Oximetry - X-Ray X-Ray #1 X-Ray: knee Interpretation: Interp. by me X-ray Comments: no fracture or dislocation - Progress/Reassessment Chief Complaint: Lower Extremity Pain/ Injury Departure Clinical Impression: Internal derangement of knee Qualifiers: Laterality: left Qualified Code(s): M23.92 - Unspecified internal derangement of left knee - Departure Disposition: Home Follow Up Needed Condition: Good Instructions: Knee Effusion, [id number], Knee Immobilizer, [id number] Additional Instructions: keep knee imobilizer on. Talk to your regular doctor about referral to orthopedics or further evaluation of your knee to determine if you have damaged the cartilage or ligaments. Referrals: Silvano Lemus MD [Primary Care Provider] - Prescriptions: HYDROcodone/ACETAMINOPHEN [[facility]] 1 - 2 tab PO Q6H PRN #20 tab PRN Reason: Pain
[2016-11-12] MEDS ORDERED: HYDROcodone/ACETAMINOPHEN 1 EACH TABLET PO ONE (02:36)
[2016-11-12] MEDS ORDERED: HYDROcodone/ACETAMINOPHEN 1 EACH TABLET ONE (02:53)
[2016-11-12 03:40] VITALS: BP 147/103
--- OUTSIDE RECORDS SUMMARY | 2016-11-12 11:13 | XMS REPORT | Continuity of Care Document ---
:1975 Author Organization [facility] [place] [address] Care Team Providers Name Role Phone Provider, None Per Patient Primary Care Provider Unavailable Source Comments This disclosure is being made pursuant to the [employer] program and maynot contain all information available regarding this patient.[facility] Active Allergies and Adverse Reactions Allergen Noted [...] mouth nightly. 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
--- OUTSIDE RECORDS SUMMARY | 2016-11-12 11:14 | XMS REPORT | Continuity of Care Document ---
:1975 Author Organization [facility] ([facility]) Address [address] [place] [address] Phone [phone] Care Team Providers Name Role Phone Silvano Lemus Primary Care Provider [phone] Source Comments This disclosure is being made pursuant to the Care Everywhere program, applicable federal and state laws, and may not contain all informaitonavailable regarding this patient.[facility] ([facility]) Active Allergies and Adverse Reactions Allergen Noted [...] 06/01/2016 Narcotic habituation, continuous 02/06/2016 Overview: See [place] Prescription Medication Program for multiple narcotic and [...] Recent Encounters Date Type Specialty Providers Description 11/12/2016 Office Visit Anesthesiology [place], Chief Comp: Wilma, PhD Patient Reported Reason For Visit 09/29/2016 Office Visit Psychiatry Nila Tesfaye Chief Comp: DO Magy Patient Reported Reason For Visit 09/09/2016 Office Visit Behavioral Health Margaret Peña Dx: Bipolar A, DO disorder with severe depression (Primary Dx) 09/01/2016 Surgery Psy ECT Service Yani Bundy, Canceled ECT-ECT TREATMENT-NO CONSENT NEEDED 08/29/2016 Surgery Psy ECT Service Silvano Mcbride ECT-ECT MD Viktoria TREATMENT-NO CONSENT NEEDED 08/28/2016 Anesthesia Event Psy ECT Service Janice Nicole Hermann, SENIOR ABAP DEVELOPER 08/27/2016 Surgery Psy ECT Service Silvano Mcbride ECT-ECT MD Viktoria TREATMENT-NO CONSENT NEEDED 08/26/2016 Anesthesia Event Psy ECT Service Roger Dent 08/25/2016 Surgery Psy ECT Service Ravi Lawrence MD ECT-ECT TREATMENT-NO CONSENT NEEDED 08/22/2016 Surgery Psy ECT Service Silvano Mcbride ECT-ECT MD Viktoria TREATMENT-NO CONSENT NEEDED 08/21/2016 Anesthesia Event Psy ECT Service Christina Breen, DDS 08/20/2016 Anesthesia Event Psy ECT Service Raegan Simpson, SENIOR ABAP DEVELOPER 08/20/2016 Anesthesia Event Psy ECT Service Sonu Barroso, SENIOR ABAP DEVELOPER 08/20/2016 Surgery Psy ECT Service Silvano Mcbride ECT-ECT MD Viktoria TREATMENT-NO CONSENT NEEDED 08/18/2016 Surgery Psy ECT Service Yani Bundy ECT-ECT TREATMENT-NO CONSENT NEEDED 08/17/2016 Anesthesia Event Psy ECT Service Nicolas Perales, SENIOR ABAP DEVELOPER 08/15/2016 Surgery Psy ECT Service Silvano Mcbride ECT-ECT MD Viktoria TREATMENT-NO CONSENT NEEDED 08/13/2016 Anesthesia Event Psy ECT Service Jay Thompson, SENIOR ABAP DEVELOPER 08/13/2016 Anesthesia Event Psy ECT Service Thom Moore 08/13/2016 Surgery Psy ECT Service Margaret Peña ECT-ECT A, DO TREATMENT-NO CONSENT NEEDED 08/05/2016 - Hospital Encounter Behavioral Health PfohlNicolas, Dx: Suicidal risk 08/29/2016 Inpatient - Adult (Primary Dx) Silvano Mcbride MD Black, Donald W, MD Nam, Ki Won, MD Crocker, Erin, MD Himadi, Elaine, MD Immunizations Name Dates Previously Given Next [...] 1.714 m (5' 7.48") 08/05/2016 9:19 PM 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 ECT-ECT TREATMENT-NO 08/20/2016 10:37 AM Bipolar disorder CONSENT NEEDED CLAY TEMPERER with severe depression ABSTRACTED BY Routine 08/20/2016 8:40 AM Bipolar disorder Results for this BILLING STAFF CLAY TEMPERER with severe procedure are in depression the results section. ECT-ECT TREATMENT-NO 08/18/2016 10:51 AM Bipolar disorder CONSENT NEEDED CLAY TEMPERER with severe depression ABSTRACTED BY Routine 08/18/2016 9:40 AM Bipolar disorder Results for this BILLING STAFF CLAY TEMPERER with severe procedure are in depression the results section. ABSTRACTED BY Routine 08/15/2016 9:32 AM Bipolar disorder Results for this BILLING STAFF CLAY TEMPERER with severe procedure are in depression the results section. ECT-ECT TREATMENT-NO 08/15/2016 8:10 AM Bipolar disorder CONSENT NEEDED CLAY TEMPERER with severe depression ECT-ECT TREATMENT-NO 08/13/2016 10:39 AM Bipolar disorder CONSENT NEEDED CLAY TEMPERER with severe depression ABSTRACTED BY Routine 08/13/2016 8:59 AM Bipolar disorder Results for this BILLING STAFF CLAY TEMPERER with severe procedure are in depression the results section. Results from Last 3 Months PSY OR [...] PRN Gold Estrada MD 100 mg at 03/16/17 2034 QUEtiapine (SEROquel) tablet 25 mg25 mg Oral [...] procedure. Resident:None Silvano Mcbride MD Associate (clinical) early childhood worker DIFFERENTIAL (08/27/2016 8:59 AM) Component Value Range % Neutrophils-Auto Diff 63.2 % Neutrophils-Auto Diff 2960 7230-2322 /MM3 % Lymphocytes-Auto Diff 25.0 % Lymphocytes-Auto Diff 9636 890-7692 /MM3 % Monocytes-Auto Diff 5.6 % Monocytes-Auto [...] Abnormality Status --------- ------ CBC (COMPLETE BLOOD COUNT)[[id number]] AbnormalFinal result DIFFERENTIAL[[id number]] Final result Please view results for these [...] PRN Nicolas Buckner MD 50 mg at 08/26/165 sodium chloride 0.9% flush syringe 10 mL10 [...] procedure. Resident:None Silvano Mcbride MD Associate (clinical) early childhood worker PSY OR CASE (08/25/2016 8:43 AM) Narrative [...] the entire procedure. Resident:None Ravi Lawrence MD Front End Architect, Psychiatry PSY OR CASE (08/22/2016 8:31 AM) [...] QHS Silvano Hawthorne MD 3 mg at 08/21/16 205 QUEtiapine (SEROquel) tablet 25 mg25 mg Oral [...] QHS Huy Brizuela MD 250 mg at 08/21/160 Time Out Verification: Immediately prior to the [...] procedure. Resident:None Silvano Mcbride MD Associate (clinical) early childhood worker PSY OR CASE (08/20/2016 8:40 AM) Ravi Dominguez MD 08/20/20168:40 AM OR CASE: ECT-ECT TREATMENT-NO [...] the entire procedure. Resident:None Ravi Lawrence MD Front End Architect, Psychiatry PSY OR CASE (08/18/2016 9:40 AM) [...] the entire procedure. Resident:None Yani Bundy MD Electrician Apprentice Powerhouse (clinical) early childhood worker ECG - EKG 12 LEAD (08/15/2016 2:29 [...] the entire procedure. Resident:None Yani Bundy MD Electrician Apprentice Powerhouse (clinical) early childhood worker LIPID PANEL (08/15/2016 9:20 AM) Component Value Range Specimen Type Fasting Cholesterol 218Comment: mg/dL Reference Range: Less than 200 mg/dL - desirable 200 - 240 mg/dL - increased risk Above 240 mg/dL - significant risk Triglycerides 219(H)Comment: 0-150 mg/dL Reference Ranges: Normal:<150 mg/dL Borderline-high:150-199 mg/dL High: 200-499 mg/dL Very high: > ni=961 mg/dL HDL Cholesterol 39(L) >=41 mg/dL LDL - Calculated 135(H) <=130 mg/dL Non-HDL Cholesterol (Calc) 179Comment: mg/dL The reference ranges for Non-HDL-C are based on National Cholesterol Education III guidelines: Desirable: <130 mg/dL Borderline High: 130-159 mg/dL High:160-189 mg/dL Very High: > gx=057 mg/dL Specimen Blood PSY OR CASE (08/13/2016 [...] the entire procedure. Resident:None Margaret Peña DO Electrician Apprentice Powerhouse (clinical) early childhood worker PICC LINE REQUEST (08/12/2016 1:07 PM) Ana Thayer RN 08/12/20161:07 PM Procedure PICC Line Insertion, 08/12/2016 Consent for Procedure The procedure was explained to the patient including risks and benefits.Patient signed consent form and wishes to proceed. A time out was performed at bedside. Location: Patient room Description of Procedure The operator and truck driver performed proper hand hygiene and utilized maximum [...] [employer] PICC SOLO catheter (Lot number [id number]) was inserted into the tear-away sheath.Blood was [...] Results - ThuAug 12, 2016 12:41 PM CLAY TEMPERER Procedure: CHEST - AP/PA Technique: Portable AP chest radiograph Comparison: Chest radiograph(s) dated: No prior. Clinical Indication: PICC line placement IMPRESSION Findings / Impression: Right upper extremity PICC line tip is in the SVC. Otherwise the portable exam is within normal limits.
== END 2016-11-12 02:55 | disposition home or self-care (01) ==
LOC: ER 00:25
PROC: 2W3LX1Z Immobilization of Right Lower Extremity using Splint (ICD-10-PCS; principal; 2016-11-12)
DX: M23.92 Unspecified internal derangement of left knee (principal); Z72.0 Tobacco use; W17.2XXA Fall into hole, initial encounter; Y93.9 Activity, unspecified; Y92.007 Garden or yard of unspecified non-institutional (private) residence as the place of occurrence of the external cause

== ENCOUNTER 2016-11-27 17:37 | Emergency (ER) | payer SELFPAY ==
--- OUTSIDE RECORDS SUMMARY | 2016-11-27 17:59 | XMS REPORT | Continuity of Care Document ---
:1975 Author Organization [facility] ([facility]) Address [address] [place] [address] Phone [phone] Care Team Providers Name Role Phone Silvano Lemus Primary Care Provider [phone] Source Comments This disclosure is being made pursuant to the Care Everywhere program, applicable federal and state laws, and may not contain all informaitonavailable regarding this patient.[facility] ([facility]) Active Allergies and Adverse Reactions Allergen [...] Anesthesia Event Psy ECT Service Janice Nicole CRNA 08/27/2016 Surgery Psy ECT Service Silvano Mcbride ECT-ECT MD Viktoria TREATMENT-NO CONSENT NEEDED 08/05/2016 - Hospital Encounter Behavioral Health Pfsharona Nicolas Blackburn, Dx: Suicidal risk 08/29/2016 Inpatient - Adult MD (Primary Dx) Silvano Mcbride MD Black, Donald W, MD Nam, MD Gregor Landa Erin, MD Himadi, Elaine, MD Immunizations Name [...] 1.714 m (5' 7.48") 08/05/2016 9:19 PM PSYCHIATRIC NP Weight 144.1 kg (317 lb 10.9 oz) [...] coated capsule 20 mg20 mg Oral Daily Nioclas Buckner MD 20 mg at 08/28/16 0749 [...] procedure. Resident:None Silvano Mcbride MD Associate (clinical) vp genetic DIFFERENTIAL (08/27/2016 8:59 AM) Component Value Range % Neutrophils-Auto Diff 63.2 % Neutrophils-Auto Diff 2960 4346-4618 /MM3 % Lymphocytes-Auto Diff 25.0 % Lymphocytes-Auto Diff 3004 820-3162 /MM3 % Monocytes-Auto Diff 5.6 % Monocytes-Auto [...] Abnormality Status --------- ------ CBC (COMPLETE BLOOD COUNT)[[id number]] AbnormalFinal result DIFFERENTIAL[[id number]] Final result Please view results for these tests on the individual orders. PSY OR CASE (08/27/2016 8:03 AM) Silvano Elliott MD 08/27/20168:03 AM OR CASE: ECT-ECT TREATMENT-NO CONSENT NEEDED Electroconvulsive Therapy Procedure Note Date of Procedure: 08/27/2016 Pre-Op Diagnosis Codes: * Bipolar disorder with severe depression [F31.4] Post-operative Diagnosis: same Attending Staff: Sivlano Mcbride MD Resident/Fellow:None Indications: unresponsive to other [...] injection 175 mg175 mg Intravenous ECT PRN Raiv Lawrence MD magnesium hydroxide (MILK OF MAGNESIA [...] was present for the entire procedure. Resident:None iSlvano Mcbride MD Associate (clinical) vp genetic
--- OUTSIDE RECORDS SUMMARY | 2016-11-27 17:59 | XMS REPORT | Continuity of Care Document ---
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
[2016-11-27] MEDS ORDERED: LORazepam 2 MG/ML DISP.SYRIN IM ONE (18:02)
[2016-11-27] MEDS ORDERED: LORazepam 2 MG/ML DISP.SYRIN ONE (18:09)
--- NOTE | 2016-11-27 18:22 | ERNOTE ---
Psychological HPI - Date Date of Service: 11/27/16 - General Chief Complaint: Anxiety Source: Reports: patient Exam Limitations: Reports: no limitations - Immun/Allergies/Home Medications Allergies/Adverse Reactions: Allergies celecoxib [From Celebrex] Allergy (Intermediate, Verified 11/27/16 17:48) Hives ketorolac tromethamine [From Toradol] Allergy (Intermediate, Verified 11/27/16 17:48) Hives morphine Adverse Reaction (Intermediate, Verified 11/27/16 17:48) Itching Home Medications: HOME MEDICATIONS Aspirin 81 mg PO 11/27/16 [Last Taken Unknown] Atorvastatin Calcium [Lipitor] 20 mg PO HS 11/27/16 [Last Taken Unknown] Calcium 11/27/16 [Last Taken Unknown] Cyclobenzaprine HCl 10 mg PO 11/27/16 [Last Taken Unknown] Duloxetine HCl [Cymbalta] 60 mg PO BID #14 capsule. 11/27/16 [Last Taken Unknown] Gabapentin [Neurontin] 600 mg PO TID #30 capsule 11/27/16 [Last Taken Unknown] Ibuprofen 11/27/16 [Last Taken Unknown] Lisinopril [Zestril] 2.5 mg PO DAILY 11/27/16 [Last Taken Unknown] Melatonin 1 mg PO HS 11/27/16 [Last Taken Unknown] [place]-3 Fatty Acids [Fish Oil] 300 mg PO 11/27/16 [Last Taken Unknown] Zestril 11/27/16 [Last Taken Unknown] glipiZIDE [Glipizide] 10 mg PO BID 11/27/16 [Last Taken Unknown] traZODone HCL [Trazodone HCl] 250 mg PO HS PRN #30 tablet 11/27/16 [Last Taken Unknown] - History of Present Illness Narrative: Pt. comes in with c/o of anxiety after she stopped taking her gabapentin, celexa , and due to an insurance mix up. Pt. states that for the first few days she didn't notice a change in mood but this afternoon she was at the store and started to feel anxious with palpitations, shortness of breath, and remunerating thoughts. Pt. has been tearful since although she states that other symptoms have improved slightly. Time Seen by Provider: 11/27/16 17:53 Review of Systems - Review of Systems Constitutional: Present: no symptoms reported. Absent: recent illness, fever, chills, weakness, fatigue, malaise EYE: Present: no symptoms reported ENT: Present: no symptoms reported Respiratory: Present: shortness of breath. Absent: cough, wheezing Cardiology: Present: palpitations. Absent: chest pain, edema Gastrointestinal/Abdominal: Present: no symptoms reported. Absent: nausea, vomiting, diarrhea Genitourinary: Present: no symptoms reported Musculoskeletal: Present: no symptoms reported. Absent: back pain, joint pain Skin: Present: no symptoms reported Neurological: Present: anxiety. Absent: depressed, headache, dizziness/light- headedness, numbness, tingling Endocrine: Present: no symptoms reported All Other Systems: All systems neg except as marked - Patient's Past Medical History Patient History - Medical: Anxiety, Chronic Pain, Depression, Obesity, Osteoarthritis Patient History - Cardiac/Respiratory: Hypertension Patient History - Cancer: No Hx of Cancer Patient History - Surgical Procedures: Back Surgery, , D & C, Tubal Ligation, T & A Patient History - Other: None LMP (females 10-50): now LMP (Calendar): 01/10/16 - Family History Mother Family History - Medical: Diabetes Type 1 Family History - Cardiac/Respiratory: CVA/Stroke, Hypertension Father Family History - Medical: Diabetes Type 2 Family History - Cardiac/Respiratory: CVA/Stroke, Hypertension - Social History Living Situations: home Abuse History: No History of abuse, Hx of Substance Use Psych History: Hx of Anxiety, Hx of Depression, Hx of Suicide Attempt, Hx of Psychiatric Tx, Current tx/ever been on anti-depressants or anti-anxiety meds Does anyone smoke in the home?: Yes Alcohol Use: rarely Drug Use: marijuana - Immunizations Immunizations Up to Date: Yes Hx Pneumococcal Vaccination: No History of Influenza Vaccine: No Physical Exam - Physical Exam General Appearance: Present: wd/wn, alert, no apparent distress Eye Exam: Normal inspection: bilateral, PERRL: bilateral, EOMI: bilateral Ears, Nose, Throat: Present: normal ENT inspection, normal pharynx Neck: Present: normal inspection, nontender. Absent: lymphadenopathy (R), lymphadenopathy (L) Respiratory: Present: no respiratory distress, normal breath sounds, no accessory muscle use, chest nontender, lungs clear Cardiovascular/Chest: Present: regular rate, rhythm, no murmur, normal peripheral pulses Gastrointestinal/Abdominal: Present: normal bowel sounds, nontender, nondistended, soft, no organomegaly Back Exam: Present: normal inspection, normal range of motion, no CVA tenderness , no vertebral tenderness Extremity Exam: Present: normal inspection, non-tender, normal range of motion, no edema Neurological Exam: Present: alert, oriented, no motor/sensory deficits, other - anxious and tearful Skin Exam: Present: normal color, warm/dry. Absent: pallor, skin rash ED Progress - Date and Time Seen: Date and Time: 11/27/16 18:13 Pt. denies being suicidal at this time and does not appear suicidal and denies hopelessness. 11/27/16 19:37 11/27/16 19:38 As pt. is positive for marijuana which in combination with not taking her medications as prescribed is likely contributing to her anxiety and is dangerous to prescribing anxiolytics at this time but will start back on her regular medications and give her a script for each and coupons for the scripts. - Results and Orders Patient's Lab Results:: I have reviewed the patient's lab results. - Vital Signs Patient's Vital Signs:: I have reviewed the patient's vital signs. Vital Signs: Vital Signs 11/27/16 17:45 Temperature 36.4 C L Pulse Rate 103 H Respiratory 18 Rate Blood Pressure 161/117 O2 Sat by Pulse 94 Oximetry - Progress/Reassessment Chief Complaint: Anxiety Progress:: Improved Departure Clinical Impression: Anxiety - Departure Disposition: Home self-care Condition: Good Instructions: Dysphoria, Panic Attacks, Asfy-mu-Akoo Additional Instructions: Please go to [facility] and cotton picker prescriptions, take medications as directed, and follow up with psychiatrist. Prescriptions: Duloxetine HCl [Cymbalta] 60 mg PO BID #14 capsule. Gabapentin [Neurontin] 600 mg PO TID #30 capsule traZODone HCL [Trazodone HCl] 250 mg PO HS PRN #30 tablet PRN Reason: Insomnia
[2016-11-27 18:24] LABS: Hematocrit 41.5 % (37.0-47.0); Mean Corpuscular Hemoglobin 30.7 pg (27-31); Mean Corpuscular Hgb Conc 33.7 g/dl (32-36); Mean Platelet Volume 10.6 fl (6.0-9.5); Neutrophil # 7.7 K/mm3 (1.3-6.0); Neutrophil % 70.3 % (42-75.0); Platelet Count 428 K/mm3 (150-450); Red Blood Count 4.56 M/mm3 (4.2-5.4); Red Cell Distribution Width 14.3 % (11.5-14.0); White Blood Count 10.9 K/mm3 (4.0-10.5)
[2016-11-27 18:26] LABS: Urine Bilirubin Negative (NEGATIVE); Urine Blood 250 /ul (NEGATIVE); Urine Ketone 5 mg/dL (NEGATIVE); Urine Nitrite Negative (NEGATIVE); Urine Protein 15 mg/dL (NEGATIVE); Urine Specific Gravity 1.015 SP.GR. (1.005-1.010); Urine Urobilinogen Normal (NORMAL); Urine pH 7.5 pH (5.0-7.0)
[2016-11-27 18:38] LABS: Cocaine Ur Negative (NEGATIVE); Urine Barbiturate Negative (NEGATIVE); Urine Benzodiazepines Negative (NEGATIVE); Urine Color Amber; Urine Opiates Negative (NEGATIVE); Urine PCP Negative (NEGATIVE); Urine THC Positive (NEGATIVE)
[2016-11-27 18:39] LABS: Urine Appearance Slightly Cloudy; Urine Bacteria TRACE; Urine Hyaline Cast TRACE /LPF; Urine WBC None Seen /hpf (0-5)
[2016-11-27 18:45] LABS: Anion Gap 17.4 mmol/L (6.8-13.8); BUN/Creatinine Ratio 8.7 (9.0-21.6); Bilirubin, Total 0.4 mg/dL (0.0-1.1); Ca. Corrected For Albumin 9.2 mg/dL (8.4-10.2); Calcium * 9.5 mg/dL (7.9-10.9); Carbon Dioxide 23.6 mmol/L (24-32.6); TSH * 0.625 uIU/mL (0.358-3.74); Total Protein 8.1 gm/dL (6.2-8.2)
[2016-11-27] MEDS ORDERED: LORazepam 1 MG TABLET PO ONE (19:37)
[2016-11-27] MEDS ORDERED: LORazepam 1 MG TABLET ONE (19:38)
[2016-11-27 20:04] VITALS: BP 155/98
== END 2016-11-27 20:02 | disposition home or self-care (01) ==
LOC: ER 17:37
DX: F41.9 Anxiety disorder, unspecified (principal); T42.6X6A Underdosing of other antiepileptic and sedative-hypnotic drugs, initial encounter

== ENCOUNTER 2016-12-09 23:35 | Emergency (ER) | payer SELFPAY ==
[2016-12-10] MEDS ORDERED: GABAPENTIN 100 MG CAPSULE PO ONE (00:36)
--- NOTE | 2016-12-10 00:41 | ERNOTE ---
Psychological HPI - General Chief Complaint: Anxiety Source: Reports: patient Exam Limitations: Reports: no limitations - Immun/Allergies/Home Medications Allergies/Adverse Reactions: Allergies celecoxib [From Celebrex] Allergy (Intermediate, Verified 11/27/16 17:48) Hives ketorolac tromethamine [From Toradol] Allergy (Intermediate, Verified 11/27/16 17:48) Hives morphine Adverse Reaction (Intermediate, Verified 11/27/16 17:48) Itching Home Medications: HOME MEDICATIONS Aspirin 81 mg PO 11/27/16 [Last Taken Unknown] Duloxetine HCl [Cymbalta] 60 mg PO BID #14 capsule. 11/27/16 [Last Taken Unknown] Gabapentin [Neurontin] 600 mg PO TID #30 capsule 11/27/16 [Last Taken Unknown] Ibuprofen 11/27/16 [Last Taken Unknown] Lisinopril [Zestril] 2.5 mg PO DAILY 11/27/16 [Last Taken Unknown] glipiZIDE [Glipizide] 10 mg PO BID 11/27/16 [Last Taken Unknown] traZODone HCL [Trazodone HCl] 250 mg PO HS PRN #30 tablet 11/27/16 [Last Taken Unknown] - History of Present Illness Narrative: Pt had a problem with her "insurance" and has not been able to get her medications for the past week. She has refiled her paperwork that she was told was the problem but is waiting for an answer. Her PCP was unable to help her on a short term basis, and told her if she had trouble she may need to come to the ED. Time Seen by Provider: 12/10/16 00:17 Arrived by: Reports: private car Onset/duration: Reports: gradual onset Situational Problems: Reports: other - lost insurance coverage and has been off medications for 1 week Prior Treament: Reports: recently seen Review of Systems - Review of Systems Constitutional: Present: no symptoms reported EYE: Present: no symptoms reported ENT: Present: no symptoms reported Respiratory: Present: shortness of breath Cardiology: Present: palpitations Gastrointestinal/Abdominal: Present: no symptoms reported Genitourinary: Present: no symptoms reported Musculoskeletal: Present: no symptoms reported Skin: Present: no symptoms reported Neurological: Present: anxiety, emotional problems Endocrine: Present: no symptoms reported Hematologic/Lymphatic: Present: no symptoms reported Psych: Present: See HPI - Patient's Past Medical History Patient History - Medical: Anxiety, Chronic Pain, Depression, Obesity, Osteoarthritis Patient History - Cardiac/Respiratory: Hypertension Patient History - Cancer: No Hx of Cancer Patient History - Surgical Procedures: Back Surgery, , D & C, Tubal Ligation, T & A Patient History - Other: None LMP (Calendar): 01/10/16 - Family History Mother Family History - Medical: Diabetes Type 1 Family History - Cardiac/Respiratory: CVA/Stroke, Hypertension Father Family History - Medical: Diabetes Type 2 Family History - Cardiac/Respiratory: CVA/Stroke, Hypertension - Social History Living Situations: home Abuse History: No History of abuse, Hx of Substance Use Psych History: Hx of Anxiety, Hx of Depression, Hx of Suicide Attempt, Hx of Psychiatric Tx, Current tx/ever been on anti-depressants or anti-anxiety meds Does anyone smoke in the home?: Yes Smoking Status: Current every day smoker Alcohol Use: rarely Drug Use: marijuana - Immunizations Immunizations Up to Date: Yes Hx Pneumococcal Vaccination: No History of Influenza Vaccine: Yes Physical Exam - Physical Exam General Appearance: Present: wd/wn, alert, moderate distress, anxious, crying Eye Exam: Normal inspection: bilateral, PERRL: bilateral Ears, Nose, Throat: Present: normal ENT inspection Neck: Present: normal inspection, nontender, supple Respiratory: Present: no respiratory distress, normal breath sounds, lungs clear Cardiovascular/Chest: Present: no murmur, normal peripheral pulses, tachycardia Gastrointestinal/Abdominal: Present: normal bowel sounds, nontender, nondistended Extremity Exam: Present: normal inspection, no edema Neurological Exam: Present: alert, oriented, no motor/sensory deficits Skin Exam: Present: normal color, warm/dry Lymphatic Exam: Present: no adenopathy ED Progress - Vital Signs Vital Signs: Vital Signs 12/09/16 23:41 Temperature 36.4 C L Pulse Rate 130 H Respiratory 22 H Rate Blood Pressure 164/93 O2 Sat by Pulse 95 Oximetry - Progress/Reassessment Chief Complaint: Anxiety Progress:: Improved Progress Note-Subjective: Pt was given trazodone and gabapentin at her usual doses to help with symptoms 12/10/16 02:10 Pt improved somewhat after taking trazodone and gabapentin but pt still feels significantly anxious and HR remains elevated. Pt given 1 mg of Ativan IM. Departure Clinical Impression: Anxiety Medication withdrawal Qualifiers: Substance type: sedative, hypnotic or anxiolytic Qualified Code(s): F13.239 - Sedative, hypnotic or anxiolytic dependence with withdrawal, unspecified - Departure Disposition: Home Follow Up Needed Condition: Fair Instructions: Panic Attacks, [id number] Additional Instructions: See your primary care doctor as soon as possible Referrals: Silvano Lemus MD [Primary Care Provider] -
--- OUTSIDE RECORDS SUMMARY | 2016-12-10 00:54 | XMS REPORT | Continuity of Care Document ---
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
[2016-12-10] MEDS ORDERED: DULoxetine HCL 30 MG CAPSULE.SA PO ONE (01:15)
[2016-12-10] MEDS ORDERED: traZODone HCL 50 MG TABLET PO ONE (01:15)
[2016-12-10] MEDS ORDERED: LORazepam 2 MG/ML DISP.SYRIN IM ONE (02:05)
[2016-12-10] MEDS ORDERED: LORazepam 2 MG/ML DISP.SYRIN ONE (02:05)
[2016-12-10 02:37] VITALS: BP 159/100
== END 2016-12-10 02:15 | disposition home or self-care (01) ==
LOC: ER 23:35
DX: F41.9 Anxiety disorder, unspecified (principal); F13.239 Sedative, hypnotic or anxiolytic dependence with withdrawal, unspecified; F17.200 Nicotine dependence, unspecified, uncomplicated

== ENCOUNTER 2017-02-28 18:04 | Emergency (ER) | payer SELFPAY ==
--- NOTE | 2017-02-28 18:41 | ERNOTE ---
<FannyBonnie - Last Filed: 02/28/17 19:08> Psychological HPI - General Chief Complaint: Suicide Attempt Source: Reports: patient Exam Limitations: Reports: no limitations - Immun/Allergies/Home Medications Allergies/Adverse Reactions: Allergies celecoxib [From Celebrex] Allergy (Intermediate, Verified 11/27/16 17:48) Hives ketorolac tromethamine [From Toradol] Allergy (Intermediate, Verified 11/27/16 17:48) Hives morphine Adverse Reaction (Intermediate, Verified 11/27/16 17:48) Itching Home Medications: HOME MEDICATIONS Duloxetine HCl [Cymbalta] 60 mg PO BID #14 capsule. 11/27/16 [Last Taken Unknown] Prazosin HCl [Minipress] 3 mg PO HS 02/28/17 [Last Taken Unknown] QUEtiapine FUMARATE [Seroquel] 100 mg PO HS 02/28/17 [Last Taken Unknown] RX: Gabapentin [Neurontin] 1,200 mg PO TID 02/28/17 [Last Taken Unknown] busPIRone HCL [Buspar] 15 mg PO TID 02/28/17 [Last Taken Unknown] diphenhydrAMINE HCL [Benadryl] 400 mg PO HS 02/28/17 [Last Taken Unknown] - History of Present Illness Narrative: pt presents to ED with suicidal ideations and a definite plan for killing herself. She attempted to kill herself with ETOH and poly pharmacy last night but wsa unsuccessfull. She is here because she wants help and feels that she is under enormous stress. Time Seen by Provider: 02/28/17 18:35 Review of Systems - Review of Systems Constitutional: Present: no symptoms reported EYE: Present: no symptoms reported ENT: Present: no symptoms reported Respiratory: Present: no symptoms reported Cardiology: Present: no symptoms reported Gastrointestinal/Abdominal: Present: no symptoms reported Genitourinary: Present: no symptoms reported Musculoskeletal: Present: no symptoms reported Skin: Present: no symptoms reported Psych: Present: other - patient feels anxious and distraught and hopeless and depressed. - Patient's Past Medical History Patient History - Medical: Anxiety, Chronic Pain, Depression, Obesity, Osteoarthritis, Other Patient History - Cardiac/Respiratory: Hypertension Patient History - Cancer: No Hx of Cancer Patient History - Surgical Procedures: Back Surgery, , D & C, Tubal Ligation, T & A Patient History - Other: None LMP (females 10-50): 3 weeks LMP (Calendar): 01/10/16 - Family History Mother Family History - Medical: Diabetes Type 1 Family History - Cardiac/Respiratory: CVA/Stroke, Hypertension Father Family History - Medical: Diabetes Type 2 Family History - Cardiac/Respiratory: CVA/Stroke, Hypertension - Social History Living Situations: spouse Abuse History: No History of abuse, Hx of Substance Use Psych History: Hx of Anxiety, Hx of Depression, Hx of Suicide Attempt, Hx of Psychiatric Tx, Current tx/ever been on anti-depressants or anti-anxiety meds Does anyone smoke in the home?: Yes Smoking Status: Current every day smoker Have you smoked in the past 12 months: Yes Do you dip or chew tobacco: No Alcohol Use: occasionally Drug Use: marijuana - Immunizations Immunizations Up to Date: Yes Hx Pneumococcal Vaccination: No History of Influenza Vaccine: Yes Psychological Exam - Exam General Appearance: Present: wd/wn, alert, no apparent distress Ears, Nose, Throat: Present: normal ENT inspection Neck: Present: normal inspection Respiratory: Present: no respiratory distress, normal breath sounds, no accessory muscle use, chest nontender, lungs clear Cardiovascular/Chest: Present: regular rate, rhythm, no murmur, normal peripheral pulses Gastrointestinal/Abdominal: Present: normal bowel sounds, nondistended, soft Extremity Exam: Present: normal inspection, normal range of motion ED Progress - Results and Orders Patient's Lab Results:: I have reviewed the patient's lab results. - Vital Signs Patient's Vital Signs:: I have reviewed the patient's vital signs. Vital Signs: Vital Signs 02/28/17 18:11 Temperature 36.1 C L Pulse Rate 138 H Respiratory 16 Rate Blood Pressure 148/90 O2 Sat by Pulse 96 Oximetry - Progress/Reassessment Chief Complaint: Suicide Attempt - Transfer of Care Physician Sign Out: Bonnie Escobedo Receiving Physician: Samantha Galvan Expected Disposition: Transfer Departure Clinical Impression: Suicidal ideations, Suicide attempt - Departure Disposition: Transferred to other hospital Condition: Serious Referrals: Silvano Lemus MD [Primary Care Provider] - <Samantha Galvan - Last Filed: 03/01/17 06:12> ED Progress - Vital Signs Patient's Vital Signs:: I have reviewed the patient's vital signs. Vital Signs: Vital Signs 03/01/17 00:58 Temperature 36.9 C Pulse Rate 102 H Respiratory 16 Rate Blood Pressure 126/80 O2 Sat by Pulse 98 Oximetry - Progress/Reassessment Progress:: Unchanged Progress Note-Subjective: 03/01/17 06:08 Patient has rested comfortably all night. She complained of anxiety at one point , had been given Ativan 1 mg PO earlier, I repeated that dose. She has been reading and sleeping. Placement was [facility] at [facility] when I spoke with Dr. Bhatti in the ED, however we were unable to procure transportation for the patient secondary to patient not having insurance. Patient has continued to rest without any further complaints. Care will be transferred to the day physician while nursing staff will continue to try to find placement for the patient.
[2017-02-28 18:58] LABS: Hematocrit 41.7 % (37.0-47.0); Hemoglobin 14.2 gm/dL (12.5-16.0); Mean Cell Volume 92.3 fl (78-100); Mean Corpuscular Hemoglobin 31.4 pg (27-31); Mean Corpuscular Hgb Conc 34.1 g/dl (32-36); Mean Platelet Volume 10.1 fl (6.0-9.5); Neutrophil # 6.6 K/mm3 (1.3-6.0); Neutrophil % 67.8 % (42-75.0); Platelet Count 445 K/mm3 (150-450); Red Blood Count 4.52 M/mm3 (4.2-5.4); Red Cell Distribution Width 14.3 % (11.5-14.0); White Blood Count 9.8 K/mm3 (4.0-10.5)
[2017-02-28 19:14] LABS: Urine Appearance Clear; Urine Bilirubin Negative (NEGATIVE); Urine Blood Negative /ul (NEGATIVE); Urine Color Yellow
[2017-02-28 19:15] LABS: Urine Bacteria None Seen; Urine Ketone 5 mg/dL (NEGATIVE); Urine Nitrite Negative (NEGATIVE); Urine Protein Negative (NEGATIVE); Urine RBC None Seen /hpf (0-5); Urine Urobilinogen Normal (NORMAL); Urine WBC 0-5 /hpf (0-5); Urine pH 6.5 pH (5.0-7.0)
[2017-02-28 19:20] LABS: ALT 40 U/L (19-67); AST 16 U/L (0-48); Alkaline Phosphatase * 49 U/L (50-170); BUN/Creatinine Ratio 14.9 (9.0-21.6); Bilirubin, Total 0.3 mg/dL (0.0-1.1); Blood Urea Nitrogen 14 mg/dL (3-23); Ca. Corrected For Albumin 8.8 mg/dL (8.4-10.2); Calcium * 9.1 mg/dL (7.9-10.9); Chloride 101 mmol/L (97-106); Glucose * 101 mg/dL (70-110); Salicylate Less than 2.8 mg/dL (2.8-20.0); Sodium 137 mmol/L (132-142); TSH * 1.034 uIU/mL (0.358-3.74); Total Protein 8.1 gm/dL (6.2-8.2)
[2017-02-28 19:22] LABS: Cocaine Ur Negative (NEGATIVE); Urine Barbiturate Negative (NEGATIVE); Urine Benzodiazepines Positive (NEGATIVE); Urine Opiates Negative (NEGATIVE); Urine PCP Negative (NEGATIVE); Urine THC Positive (NEGATIVE)
[2017-02-28] MEDS ORDERED: LORazepam 1 MG TABLET PO ONE (19:27)
[2017-02-28] MEDS ORDERED: LORazepam 1 MG TABLET ONE (19:31)
[2017-03-01] MEDS ORDERED: LORazepam 1 MG TABLET PO ONE ×4 (00:53→19:40)
[2017-03-01] MEDS ORDERED: LORazepam 1 MG TABLET ONE ×4 (00:54→19:41)
[2017-03-01] MEDS ORDERED: GABAPENTIN 100 MG CAPSULE PO ONE (09:55)
[2017-03-01] MEDS ORDERED: DULoxetine HCL 30 MG CAPSULE.SA PO SCH (10:15)
[2017-03-01] MEDS ORDERED: GABAPENTIN 600 MG TABLET PO SCH (10:15)
[2017-03-01] MEDS ORDERED: ACETAMINOPHEN 500 MG TABLET PO ONE (11:53)
[2017-03-01] MEDS ORDERED: KETOROLAC TROMETHAMINE 60 MG/2 ML VIAL IM ONE (13:24)
[2017-03-01] MEDS ORDERED: IBUPROFEN 400 MG TABLET PO ONE (13:30)
[2017-03-01] MEDS ORDERED: diphenhydrAMINE HCL 50 MG/ML VIAL IM ONE (17:31)
[2017-03-01] MEDS ORDERED: diphenhydrAMINE HCL 50 MG/ML VIAL ONE (17:32)
[2017-03-01 20:02] VITALS: BP 136/72
== END 2017-03-01 20:10 | disposition short-term general hospital (02) ==
LOC: ER 18:04
DX: G89.29 Other chronic pain (principal); M19.90 Unspecified osteoarthritis, unspecified site; I10 Essential (primary) hypertension; F41.8 Other specified anxiety disorders; F17.200 Nicotine dependence, unspecified, uncomplicated
CPT/HCPCS: 36415; 80053; 80307; 81001; 84443; 85025; 96372; 99284; G0480; G0481

== ENCOUNTER 2017-03-18 21:12 | Emergency (ER) | payer MEDICAID ==
[2017-03-18] MEDS ORDERED: NALBUPHINE HCL 20 MG/ML AMPUL IM ONE (21:49)
--- NOTE | 2017-03-18 21:50 | ERNOTE ---
Lower Extremity HPI - Narrative Date of Service: 03/18/17 - General Lower Extremities Pain: knee: left Time Seen by Provider: 03/18/17 21:20 - Immun/Allergies/Home Medications Immunizations: IMMUNIZATION HX Immunizations Up to Date Yes History of Influenza Vaccine Yes Hx Pneumococcal Vaccination Yes Allergies/Adverse Reactions: Allergies Allergy/AdvReac Type Severity Reaction Status Date / Time celecoxib [From Celebrex] Allergy Intermediate Hives Verified 03/18/17 21:18 ketorolac tromethamine Allergy Intermediate Hives Verified 03/18/17 21:18 [From Toradol] morphine AdvReac Intermediate Itching Verified 03/18/17 21:18 Home Medications: HOME MEDICATIONS Duloxetine HCl [Cymbalta] 60 mg PO BID #14 capsule. 11/27/16 [Last Taken Unknown] Gabapentin [Neurontin] 1,200 mg PO TID 02/28/17 [Last Taken Unknown] Prazosin HCl [Minipress] 3 mg PO HS 02/28/17 [Last Taken Unknown] QUEtiapine FUMARATE [Seroquel] 100 mg PO HS 02/28/17 [Last Taken Unknown] diphenhydrAMINE HCL [Benadryl] 400 mg PO HS 02/28/17 [Last Taken Unknown] traMADol HCL [Tramadol HCl] 50 mg PO QID #10 tablet 03/18/17 [Last Taken Unknown ] traZODone HCL [Trazodone HCl] 50 mg PO HS 03/18/17 [Last Taken Unknown] - Patient's Past Medical History Patient History - Medical: Anxiety, Chronic Pain, Depression, Obesity, Osteoarthritis, Other Patient History - Cardiac/Respiratory: Hypertension Patient History - Cancer: No Hx of Cancer Patient History - Surgical Procedures: Back Surgery, , D & C, Tubal Ligation, T & A Patient History - Other: None LMP (females 10-50): few days ago LMP (Calendar): 01/10/16 - Family History Mother Family History - Medical: Diabetes Type 1 Family History - Cardiac/Respiratory: CVA/Stroke, Hypertension Father Family History - Medical: Diabetes Type 2 Family History - Cardiac/Respiratory: CVA/Stroke, Hypertension - Social History Living Situations: home Abuse History: No History of abuse, Hx of Substance Use Psych History: Hx of Anxiety, Hx of Depression, Hx of Suicide Attempt, Hx of Psychiatric Tx, Current tx/ever been on anti-depressants or anti-anxiety meds Does anyone smoke in the home?: Yes Smoking Status: Current every day smoker Alcohol Use: occasionally Drug Use: marijuana - Immunizations Immunizations Up to Date: Yes Hx Pneumococcal Vaccination: Yes History of Influenza Vaccine: Yes ED Progress - Vital Signs Vital Signs: Vital Signs 03/18/17 21:14 Temperature 36.3 C L Pulse Rate 116 H Respiratory 18 Rate Blood Pressure 160/125 O2 Sat by Pulse 97 Oximetry - Progress/Reassessment Chief Complaint: Lower Extremity Pain/ Injury Departure Clinical Impression: Knee pain, left Qualifiers: Chronicity: acute Qualified Code(s): M25.562 - Pain in left knee - Departure Disposition: Home self-care Condition: Good Instructions: Knee Pain Additional Instructions: Please follow up with orthopedist as planned and 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 Referrals: Silvano Lemus MD [Primary Care Provider] - Prescriptions: traMADol HCL [Tramadol HCl] 50 mg PO QID #10 tablet
[2017-03-18] MEDS ORDERED: NALBUPHINE HCL 20 MG/ML AMPUL ONE (21:51)
[2017-03-18 21:58] VITALS: BP 142/84
--- NOTE | 2017-03-18 22:23 | ERNOTE ---
Lower Extremity HPI - Narrative Date of Service: 03/18/17 - General Lower Extremities Pain: knee: left Time Seen by Provider: 03/18/17 21:20 Source: patient Exam Limitations: no limitations - Immun/Allergies/Home Medications Immunizations: IMMUNIZATION HX Immunizations Up to Date Yes History of Influenza Vaccine Yes Hx Pneumococcal Vaccination Yes Allergies/Adverse Reactions: Allergies Allergy/AdvReac Type Severity Reaction Status Date / Time celecoxib [From Celebrex] Allergy Intermediate Hives Verified 03/18/17 21:18 ketorolac tromethamine Allergy Intermediate Hives Verified 03/18/17 21:18 [From Toradol] morphine AdvReac Intermediate Itching Verified 03/18/17 21:18 Home Medications: HOME MEDICATIONS Duloxetine HCl [Cymbalta] 60 mg PO BID #14 capsule. 11/27/16 [Last Taken Unknown] Gabapentin [Neurontin] 1,200 mg PO TID 02/28/17 [Last Taken Unknown] Prazosin HCl [Minipress] 3 mg PO HS 02/28/17 [Last Taken Unknown] QUEtiapine FUMARATE [Seroquel] 100 mg PO HS 02/28/17 [Last Taken Unknown] diphenhydrAMINE HCL [Benadryl] 400 mg PO HS 02/28/17 [Last Taken Unknown] traMADol HCL [Tramadol HCl] 50 mg PO QID #10 tablet 03/18/17 [Last Taken Unknown ] traZODone HCL [Trazodone HCl] 50 mg PO HS 03/18/17 [Last Taken Unknown] - History of Present Illness Narrative: Pt. comes in with c/o L knee pain that she has an appointment with her ortho to evaluate for surgery to repair her meniscus on the . Pt. states that she has felt better mentally recently and has been able to do yard work and house cleaning but her knee is having more pain because of the extra activity. Pt. Denies any alleviating factors despite taking Ibuprofen and Tylenol. Pt. denies any numbness, tingling, SOB, CP, and states that movement exacerbates the pain. Review of Systems - Review of Systems Constitutional: Present: no symptoms reported. Absent: recent illness, fever, chills, weakness, fatigue, malaise EYE: Present: no symptoms reported ENT: Present: no symptoms reported Respiratory: Present: no symptoms reported. Absent: shortness of breath, cough , wheezing Cardiology: Present: no symptoms reported. Absent: chest pain, palpitations, edema Gastrointestinal/Abdominal: Present: no symptoms reported Genitourinary: Present: no symptoms reported Musculoskeletal: Present: joint pain - L knee. Absent: back pain, neck pain Skin: Present: no symptoms reported Neurological: Present: no symptoms reported. Absent: headache, dizziness/light- headedness, numbness, tingling All Other Systems: All systems neg except as marked - Patient's Past Medical History Patient History - Medical: Anxiety, Chronic Pain, Depression, Obesity, Osteoarthritis, Other Patient History - Cardiac/Respiratory: Hypertension Patient History - Cancer: No Hx of Cancer Patient History - Surgical Procedures: Back Surgery, , D & C, Tubal Ligation, T & A Patient History - Other: None LMP (females 10-50): few days ago LMP (Calendar): 01/10/16 - Family History Mother Family History - Medical: Diabetes Type 1 Family History - Cardiac/Respiratory: CVA/Stroke, Hypertension Father Family History - Medical: Diabetes Type 2 Family History - Cardiac/Respiratory: CVA/Stroke, Hypertension - Social History Living Situations: home Abuse History: No History of abuse, Hx of Substance Use Psych History: Hx of Anxiety, Hx of Depression, Hx of Suicide Attempt, Hx of Psychiatric Tx, Current tx/ever been on anti-depressants or anti-anxiety meds Does anyone smoke in the home?: Yes Smoking Status: Current every day smoker Alcohol Use: occasionally Drug Use: marijuana - Immunizations Immunizations Up to Date: Yes Hx Pneumococcal Vaccination: Yes History of Influenza Vaccine: Yes Physical Exam - Physical Exam General Appearance: Present: wd/wn, alert, no apparent distress Head Exam: Present: normal inspection, no evidence of injury Eye Exam: Normal inspection: bilateral Neck: Present: normal inspection, nontender. Absent: lymphadenopathy (R), lymphadenopathy (L) Respiratory: Present: no respiratory distress, normal breath sounds, no accessory muscle use, chest nontender, lungs clear Cardiovascular/Chest: Present: regular rate, rhythm, no murmur, normal peripheral pulses Extremity Exam: Present: normal range of motion, joint swelling - L knee, other - crepitus L knee. Absent: bony tenderness Neurological Exam: Present: alert, oriented, normal mood/affect, no motor/ sensory deficits Skin Exam: Present: normal color, warm/dry. Absent: pallor, skin rash ED Progress - Results and Orders Results and Orders: reviewed previous xrays and feel that this is likely pt. meniscus and PTO will help the best until surgery. - Vital Signs Patient's Vital Signs:: I have reviewed the patient's vital signs. 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 Referrals: Silvano Lemus MD [Primary Care Provider] - Prescriptions: traMADol HCL [Tramadol HCl] 50 mg PO QID #10 tablet
== END 2017-03-18 22:00 | disposition home or self-care (01) ==
LOC: ER 21:12
DX: M25.562 Pain in left knee (principal); F17.200 Nicotine dependence, unspecified, uncomplicated; F41.9 Anxiety disorder, unspecified; F32.9 Major depressive disorder, single episode, unspecified; I10 Essential (primary) hypertension